=== PATIENT | female | born 1950 | race Caucasian/White ===

== ENCOUNTER 2020-01-20 04:51 | Observation (INO) | payer BC, SELFPAY ==
[2020-01-20] VITALS (10 sets, daily range): BP systolic 108–135; BP diastolic 45–77; PULSE 66–80; RESP 14–19; TEMP 36.4–37.2; O2SAT 97–100; BMI 22.0
--- NOTE | ~2020-01-20 | XR_ITS ---
EXAMINATION: XR abdomen obstructive series DATE: 01/21/2020 08:12 INDICATION: Small bowel obstruction TECHNIQUE: Upright and supine views of the abdomen were obtained. COMPARISON: CT from yesterday and abdominal radiograph dated 09/02/2016 FINDINGS: The dilated small bowel loop from yesterday's CT examination is not definitely identified a lthough the left mid abdomen is relatively gasless. There is no free intraperitoneal gas. The lung ba ses are clear. IMPRESSION: 1. No definitely dilated small bowel. However, the left mid abdomen is relatively gasless which could reflect fluid filling of the affected segment of small bowel. Reviewed, dictated and finalized at location A. IMPRESSION: 1. No definitely dilated small bowel. However, the left mid abdomen is relative ly gasless which could reflect fluid filling of the affected segment of small b mak.
--- NOTE | ~2020-01-20 | CT_ITS ---
EXAMINATION: CT abdomen pelvis w con DATE: 01/20/2020 05:36 INDICATION: Lower abdominal pain TECHNIQUE: Computed tomography (CT) of the abdomen and pelvis was performed . with 100 mL Omnipaque-3 50 intravenous contrast. Automated exposure control and iterative reconstruction technique were emplo yed. The dose-length product was 334.37 mGy-cm. COMPARISON: 09/02/2016 FINDINGS: Minimal atelectasis at the medial left lung base. Visualized portion of the inferior heart is normal. No pericardial or pleural effusion. Liver, gallbladder, spleen and bilateral adrenal glands are norm al. Again seen is moderate fatty atrophy of the pancreas. Again seen are small regions of cortical sc arring at both kidneys. Unchanged parapelvic cysts at the left kidney. Dilated loops of small bowel i n the pelvis measuring up to 3.7 cm with residual feces sign at the transition point in the anterior left pelvis where there is focal mild bowel wall thickening. The colon is largely decompressed. Small amount of ascites in the pelvis. No pneumatosis, free intraperitoneal gas or abscess. Bladder, uteru s and bilateral adnexa are unremarkable. No pathologically enlarged abdominal or pelvic lymphadenopat hy. Moderate thoracolumbar spondylosis. IMPRESSION: 1. Early/partial small bowel obstruction with transition point in the left lower quadrant. Reviewed, dictated and finalized at location A. IMPRESSION: 1. Early/partial small bowel obstruction with transition point in the left lowe r quadrant.
--- NOTE | 2020-01-20 05:02 | ED.ABDPAIN ---
HPI - Abdominal Pain General Chief Complaint: Abdominal Pain <Oziel Cohn MD - Last Filed: 01/25/20 19:58> Stated Complaint: lower abd pain <Oziel Cohn MD - Last Filed: 01/25/20 19:58> Time Seen by Provider: 01/20/20 04:56 <Oziel Cohn MD - Last Filed: 01/25/20 19:58> History of Present Illness HPI narrative: 69 yo female w/ h/o SBO presents c/o abdominal pain. She has had lower abdominal pain for the past few hours. Associated with nausea and vomiting. SHe had similar symptoms with previous bowel obstruction. She did have a bowel movment yesterday. No fever, chills. <Oziel Cohn MD - Last Filed: 01/25/20 19:58> Related Data Home Medications: Home Medications Medication Instructions Recorded Confirmed pravastatin 20 mg PO HS 01/20/20 01/20/20 <Oziel Cohn MD - Last Filed: 01/25/20 19:58> Allergies/Adverse Reactions: Allergies Allergy/AdvReac Type Severity Reaction Status Date / Time No Known Allergies Allergy Unknown Verified 07/11/19 13:25 <Oziel Cohn MD - Last Filed: 01/25/20 19:58> Review of Systems Review of Systems: All systems reviewed & are unremarkable except as noted in HPI and below <Oziel Cohn MD - Last Filed: 01/25/20 19:58> Constitutional: Constitutional: Denies fever(s) <Oziel Cohn MD - Last Filed: 01/25/20 19:58> Cardiovascular: Cardiovascular: Denies chest pain <Oziel Cohn MD - Last Filed: 01/25/20 19:58> Respiratory: Respiratory: Denies dyspnea <Oziel Cohn MD - Last Filed: 01/25/20 19:58> Gastrointestinal: Gastrointestinal: Reports constipation, Denies diarrhea, Reports nausea and Reports vomiting <Oziel Cohn MD - Last Filed: 01/25/20 19:58> Genitourinary: Genitourinary: Denies hematuria and Denies dysuria <Oziel Cohn MD - Last Filed: 01/25/20 19:58> Musculoskeletal: Musculoskeletal: Denies back pain <Oziel Cohn MD - Last Filed: 01/25/20 19:58> Neurologic: Denies dizziness and Denies weakness <Oziel Cohn MD - Last Filed: 01/25/20 19:58> PMFSH Past Medical History Medical History: Medical History (Updated 01/22/20 @ 08:45 by Jayda Moore PA-C) Encounter for other screening for malignant neoplasm of breast Hyperlipidemia Hypertension Postmenopausal Prediabetes <Oziel Cohn MD - Last Filed: 01/25/20 19:58> Surgical History Surgical History: Surgical History H/O section 1983 and 1988 History of ovarian cystectomy Hx of appendectomy During one of the sections. <Oziel Cohn MD - Last Filed: 01/25/20 19:58> Family History Family History: Family History Mother Family history of malignant neoplasm of breast in first degree relative <Oziel Cohn MD - Last Filed: 01/25/20 19:58> Social History Social History: Social History Social History: The patient reports that she lives in [place] with her Rodolfo. She wishes to be a full code. She has designated her Rodolfo as her POA. She is a retired childcare provider. Smoking status: Never smoker Second hand tobacco smoke exposure: No Alcohol intake: never Substance use: never Gender identity (if verbalized by the patient): Female Spiritual care concerns: No Agree to blood products: Yes <Oziel Cohn MD - Last Filed: 01/25/20 19:58> Exam Const: General: alert <Oziel Cohn MD - Last Filed: 01/25/20 19:58> Nutritional Appearance: well nourished <Oziel Cohn MD - Last Filed: 01/25/20 19:58> Orientation/consciousness: patient oriented x3 <Oziel Cohn MD - Last Filed: 01/25/20 19:58> Other: mild distressed <Oziel Cohn MD - Last Filed: 01/25/20 19:58> NOAHMT: Padmini
[2020-01-20] MEDS: ONDANSETRON INJ 4 MG/2 ML VIAL IV PUSH (05:14)
[2020-01-20] MEDS: MORPHINE SULFATE 4 MG/ML INJ IV PUSH (05:14)
[2020-01-20 05:17] LABS: Basophils Percent Auto 0.1 % (0.2-1.2); Hematocrit 38.8 % (37.0-47.0); Hemoglobin 12.6 g/dL (12.0-15.0); Immature Granulocyte Absolute 0.06 K/mm3 (0.00-0.031); Immature Granulocyte Percent A 0.5 % (0-0.5); Lymphocytes Absolute Auto 0.59 K/mm3 (0.9-3.2); Lymphocytes Percent Auto 5.2 % (18.3-44.2); Mean Corpuscular HGB Conc 32.5 g/dl (32-36); Mean Corpuscular Hemoglobin 30.8 pg (26-34); Mean Corpuscular Volume 94.9 fl (80-100); Mean Platelet Volume 12.7 fl (7.4-10.4); Monocytes Absolute Auto 0.3 K/mm3 (0.1-0.6); Monocytes Percent Auto 2.5 % (2.6-8.5); Neutrophils Absolute Auto 10.5 K/mm3 (1.3-6.7); Neutrophils Percent Auto 91.7 % (45.5-73.1); Platelet Count Result 253 k/mm3 (150-375); Red Blood Count 4.09 M/mm3 (4.2-5.4); White Blood Count 11.4 K/mm3 (4.5-10.0)
[2020-01-20 05:26] LABS: Alanine Aminotransferase 20 U/L (4-35); Albumin Level 4.3 g/dL (3.5-5.1); Alkaline Phosphatase 96 U/L (38-126); Aspartate Amino Transferase 29 U/L (14-36); Bilirubin,Total 0.6 mg/dL (0.2-1.3); Blood Urea Nitrogen 17 mg/dL (7-17); Calcium 9.5 mg/dL (8.4-10.2); Carbon Dioxide 26 mmol/L (22-30); Chloride 99 mmol/L (98-107); Estimated CRCL calculation 56 ml/min; Estimated Glomerular Filt Rate > 60; Glucose 191 mg/dL (65-105); Lipase 25 U/L (23-300); Potassium 3.4 mmol/L (3.4-5.0); Sodium 133 mmol/L (137-145)
[2020-01-20 05:27] LABS: INR 0.9; Partial Thromboplastin Time 20.7 SECONDS (22.3-36.8); Prothrombin Time 11.6 Seconds (11.1-14.7)
[2020-01-20 05:28] LABS: Estimated CRCL calculation 56 ml/min; Estimated Glomerular Filt Rate > 60
[2020-01-20 05:32] LABS: Add Urine Microscopic? YES; Appearance Urine Clear (Clear); Bacteria Urine Trace /hpf; Bilirubin Urine Negative (Negative); Blood Urine Negative (Negative); Color Urine Yellow (Yellow); Glucose Urine UA 1+ mg/dL (Negative); Ketones Urine 1+ mg/dL (Negative); Leukocyte Esterase Ur Negative LEU/UL (Negative); Mucus Urine Rare /lpf; Nitrate Urine Negative (Negative); Protein Urine Negative (Negative); Specific Grav Ur 1.015 (1.001-1.035); Squamous Epithelial Cell Urine Rare /hpf (Few); Urobilinogen Urine Negative mg/dL (<2.0); WBC Urine 0-3 /hpf
--- NOTE | 2020-01-20 07:44 | ADMGEN ---
This patient, Ritu Gomez, was admitted to Medical Room 348-01. Patient/family oriented to hospital policies and general routines including ID bracelet, bed and alarms, visiting hours, pain management, procedures, bathroom and other care routines, personal items, smoking policy, room service/diet, and visiting hours. Valuables list has been completed. Information on how to activate the Rapid Response Team has been discussed. Patient/Family are encouraged to report perceived risks to care and to ask questions if they do not understand what they are told or what they should do.
[2020-01-20] MEDS: SODIUM CHLORIDE 0.9% IV 1,000 ML 125 ML IV CONT ×2 (08:08→16:32)
[2020-01-20] MEDS: LEVOTHYROXINE SODIUM INJ 100 MCG/5 ML VIAL 25 MCG IV PUSH (09:35)
--- NOTE | 2020-01-20 10:38 | PM.IMHP ---
H&P: HPI History of Present Illness Chief complaint: SBO Narrative: Ritu Gomez is a 69 year old female with PMH significant for recurrent small bowel obstructions with three hospitalizations in 2015 and 2016 managed conservatively, hypothyroidism, hypertension, hyperlipidemia, and impaired glucose tolerance, diet controlled, with last A1C 6.3 01/04/19 who presented to the ED with c/o lower abdominal and periumbilical pain since Thursday. She rates the pain at 5/10 and describes it as constant and sharp. She reports 2-3 episodes of associated vomiting as well as nausea. She states that her sx persisted so she decided to proceed to the ED. She denies melena, hematemesis, and hematochezia. She adheres to a low fiber diet at home. She denies fever and chills. She reports that her stools are generally soft. She reports that she had a BM yesterday and this AM which were soft. She denies diarrhea and constipation. She underwent colonoscopy by Dr. Abel 07/14/19 which revealed internal hemorrhoids and was otherwise unremarkable. Initial workup in the ED revealed WBC 11,400 with mostly neutrophils, Hb 12.6, and Hct 38.8. Her metabolic panel revealed sodium 133 and glucose 191 and was otherwise unremarkable. CT abd/pelvis revealed dilated loops of small bowel in the pelvis measuring up to 3.7 cm with residual feces at the transition point in the anterior left pelvis with focal mild bowel wall thickening and decompressed colon. She was given IV fluids, placed on bowel rest, and given IV antiemetics and analgesics PRN. She refused NG tube in the ED. General surgery was consulted and she was admitted to the hospitalist service for further evaluation and treatment. She reports that her pain has resolved significantly today. Review of Systems Review of Systems: Narrative: Constitutional: Denies fever, chills, fatigue, malaise, and appetite change. Denies recent weight loss. Eyes: Denies vision change. No additional eye complaints. ENT: Denies change in hearing, nasal congestion, dysphagia, and sore throat. Reports mild sinus congestion. Cardiovascular: Denies palpitations and chest pain. Denies PND and orthopnea. Denies dyspnea on exertion. Respiratory: Denies cough and shortness of breath. Gastrointestinal: As above. Genitourinary: Denies dysuria, frequency, urgency, hematuria, and hesitancy. Musculoskeletal: Denies joint pain and swelling. Denies muscle cramps and weakness. Skin: Denies rash, lesions, or wounds. Neurologic: Denies focal weakness, paresthesias, confusion, and speech change. Psychiatric: Denies anxiety and depression. Hematologic: Denies easy bruising and bleeding. All systems reviewed & are unremarkable except as noted in HPI and below PMFSH Past Medical History Medical History Encounter for other screening for malignant neoplasm of breast Hyperlipidemia Hypertension Postmenopausal Prediabetes Surgical History Surgical History H/O section 1983 and 1988 History of ovarian cystectomy Hx of appendectomy During one of the sections. Family History Family History Mother Family history of malignant neoplasm of breast in first degree relative Social History Social History Social History: The patient reports that she lives in [place] with her Rodolfo. She wishes to be a full code. She has designated her Rodolfo as her POA. She is a retired childcare provider. Smoking status: Never smoker Second hand tobacco smoke exposure: No Alcohol intake: never Substance use: never Living arrangements: with family Occupation/Education: retired Gender identity (if verbalized by the patient): Female Spiritual care concerns: No Agree to blood products: Yes Meds Home Med
[2020-01-20] MEDS: ENOXAPARIN 40 MG/0.4 ML SYRINGE SUB-Q (10:54)
[2020-01-20] MEDS: PANTOPRAZOLE SODIUM IV 40 MG VIAL IV PUSH (10:54)
[2020-01-20 12:14] LABS: Glucose Point of Care 85 (65-105)
[2020-01-20 13:56] LABS: Hemoglobin A1C 6.5 % (<5.7)
[2020-01-20] MEDS: METOPROLOL SUCCINATE EXT REL 25 MG TABCR PO (14:04)
--- NOTE | 2020-01-20 14:32 | PM.CNGS ---
Assessment and Plan Assessment and plan (1) Small bowel obstruction: Code(s): K56.609 - Unspecified intestinal obstruction, unspecified as to partial versus complete obstruction Status: Acute Assessment and Plan: CT scan reviewed and discussed with the patient in detail. There is evidence of an early or partial small bowel obstruction. She does have a history of multiple abdominal surgeries, therefore adhesions could be the cause for this. She has had multiple partial small bowel obstructions in the past that resolved with conservative management, but has not had any issues since 2016. She reports to me that she had a bowel movement this morning. Her abdominal exam is benign and she has seemed to already clinically improve. We will defer an NG tube at this time and allow the patient to try some clear liquids and ice chips. Will order abdominal films for tomorrow morning and continue to monitor the patient with serial abdominal exams and imaging. I discussed with the patient that if her symptoms return or she is unable to tolerate a diet, then we may need to consider NG tube placement. I discussed the plan of care with the patient and answered all her questions. Thank you for allowing me to see the patient in consultation and we will continue to follow along with you. (2) Hypertension: Qualifiers: Hypertension type: essential hypertension Qualified Code(s): I10 - Essential (primary) hypertension Code(s): I10 - Essential (primary) hypertension Status: Chronic (3) Hyperlipidemia: Qualifiers: Hyperlipidemia type: unspecified Qualified Code(s): E78.5 - Hyperlipidemia, unspecified Code(s): E78.5 - Hyperlipidemia, unspecified Status: Chronic (4) Hypothyroidism: Qualifiers: Hypothyroidism type: acquired Qualified Code(s): E03.9 - Hypothyroidism, unspecified Code(s): E03.9 - Hypothyroidism, unspecified Status: Chronic Additional Plan I discussed the patient's case and formulated the plan of care with Dr. Tafoya today. History of Present Illness Consult details Consult date: 01/20/20 Reason for consult: other (Partial small bowel obstruction) Requesting physician: Iglesia Montemayor MD Narrative: This is a 69-year-old female who presented to the emergency department early this morning with complaints of abdominal pain. She has a history of hypertension, hyperlipidemia, and hypothyroidism, along with a surgical history of two previous sections and ovarian cyst removal. The patient has a more remote history of previous partial small bowel obstructions. She initially had her first episode in August of 2015 and was evaluated by Dr. Mercedes. She was felt to have a partial small bowel obstruction versus ileus and improved with conservative management. She then had presented to the ER with similar symptoms in March of 2016, but symptoms resolved in the ER and she was discharged home. She was again seen in June and August of 2016 for a partial small bowel obstruction and improved with conservative management. During the Hospitalization in August of 2016, she was evaluated by Dr. Roberson and had recommendations of continuing with a low fiber diet and monitoring her bowel habits. It was not felt that she needed any surgical intervention in the past. The patient reportedly has not been hospitalized for this issue since and denies any issues at home until recently. She reports that about 2 days ago she developed a sudden onset of lower abdominal pain with associated nausea and one episode of vomiting. She states that her symptoms resolved spontaneously that evening. Yesterday, she reports eating and drinking normally without any complications. She the developed a sudden onset of the abdominal pain again overnight that was more severe and unrelenting. She then decided to present to the emergency department for further evaluation. CT scan of the abdomen and pelvis showed
[2020-01-20 16:45] LABS: Glucose Point of Care 94 (65-105)
[2020-01-20] MEDS: FLUTICASONE PROPIONATE 0.05% NA SPR 16 GM BTL (*BKC) 1 SPRAY NASAL (21:17)
[2020-01-20] MEDS: PRAVASTATIN SODIUM 20 MG TABLET PO (21:17)
[2020-01-21] MEDS: SODIUM CHLORIDE 0.9% IV 1,000 ML 125 ML IV CONT (00:12)
[2020-01-21 00:17] LABS: Glucose Point of Care 98 (65-105)
[2020-01-21 05:08] VITALS: BP 135/57; PULSE 75; RESP 16; TEMP 36.7; O2SAT 100
[2020-01-21 06:38] LABS: Basophils Percent Auto 0.1 % (0.2-1.2); Eosinophils Percent Auto 0.1 % (0-4.4); Hematocrit 34.8 % (37.0-47.0); Hemoglobin 11.4 g/dL (12.0-15.0); Immature Granulocyte Absolute 0.02 K/mm3 (0.00-0.031); Immature Granulocyte Percent A 0.3 % (0-0.5); Lymphocytes Absolute Auto 0.78 K/mm3 (0.9-3.2); Lymphocytes Percent Auto 10.9 % (18.3-44.2); Mean Corpuscular HGB Conc 32.8 g/dl (32-36); Mean Corpuscular Hemoglobin 31.1 pg (26-34); Mean Corpuscular Volume 95.1 fl (80-100); Mean Platelet Volume 12.5 fl (7.4-10.4); Monocytes Absolute Auto 0.7 K/mm3 (0.1-0.6); Monocytes Percent Auto 9.2 % (2.6-8.5); Neutrophils Absolute Auto 5.7 K/mm3 (1.3-6.7); Neutrophils Percent Auto 79.4 % (45.5-73.1); Platelet Count Result 215 k/mm3 (150-375); Red Blood Count 3.66 M/mm3 (4.2-5.4); Red Cell Distribution Width 14.3 % (11.5-14.5); White Blood Count 7.2 K/mm3 (4.5-10.0)
[2020-01-21] MEDS: LEVOTHYROXINE SODIUM 50 MCG TABLET PO (06:44)
[2020-01-21 06:50] LABS: Glucose Point of Care 87 (65-105)
[2020-01-21 06:55] LABS: Blood Urea Nitrogen 10 mg/dL (7-17); Calcium 8.3 mg/dL (8.4-10.2); Carbon Dioxide 27 mmol/L (22-30); Chloride 106 mmol/L (98-107); Estimated CRCL calculation 69 ml/min; Estimated Glomerular Filt Rate > 60; Glucose 112 mg/dL (65-105); Potassium 3.6 mmol/L (3.4-5.0); Sodium 137 mmol/L (137-145)
[2020-01-21] MEDS: FLUTICASONE PROPIONATE 0.05% NA SPR 16 GM BTL (*BKC) 1 SPRAY NASAL ×2 (08:02→21:22)
[2020-01-21] MEDS: ENOXAPARIN 40 MG/0.4 ML SYRINGE SUB-Q (08:02)
[2020-01-21] MEDS: PANTOPRAZOLE SODIUM IV 40 MG VIAL IV PUSH (08:02)
--- NOTE | 2020-01-21 08:51 | PM.IMPN ---
Progress Note: A&P Assessment and Plan (1) Small bowel obstruction: Code(s): K56.609 - Unspecified intestinal obstruction, unspecified as to partial versus complete obstruction Status: Acute Assessment and Plan: The pt has a hx of recurrent SBO in 2014 and 2015 which have been managed conservatively in the past. Adhesions are suspected as the cause as she has a hx of multiple abdominal surgeries. General surgery is on board. She is being managed conservatively with bowel rest. She reports that her abdominal pain has subsided and she is not experiencing nausea or vomiting. She is tolerating sips of clear liquids well. Abdominal xray revealed no definite dilation of the small bowel and relatively gasless mid abdomen suggesting that the bowel obstruction is resolving with conservative measures. Plan to advance diet per general surgery Will discontinue IV fluids as pt is tolerating PO intake Continue IV antiemetics and analgesics PRN (2) Hypothyroidism: Qualifiers: Hypothyroidism type: acquired Qualified Code(s): E03.9 - Hypothyroidism, unspecified Code(s): E03.9 - Hypothyroidism, unspecified Status: Chronic Assessment and Plan: TSH is 4.190 WNL and fT4 is pending. Continue levothyroxine (3) Hypertension: Qualifiers: Hypertension type: essential hypertension Qualified Code(s): I10 - Essential (primary) hypertension Code(s): I10 - Essential (primary) hypertension Status: Chronic Assessment and Plan: BP reviewed from 01/20 and stable. Continue metoprolol (4) Hyperlipidemia: Qualifiers: Hyperlipidemia type: unspecified Qualified Code(s): E78.5 - Hyperlipidemia, unspecified Code(s): E78.5 - Hyperlipidemia, unspecified Status: Chronic Assessment and Plan: LFTs reviewed and WNL. Continue pravastatin (5) Diabetes mellitus: Qualifiers: Diabetes mellitus complication status: without complication Diabetes mellitus [facility] insulin use: without napper runner use Diabetes mellitus type: type 2 Qualified Code(s): E11.9 - Type 2 diabetes mellitus without complications Code(s): E11.9 - Type 2 diabetes mellitus without complications Status: Acute Assessment and Plan: HbA1C was repeated and is 6.5 which is consistent with diabetes. FBS today was 112 today. Additional blood sugars fasting have been <100. She denies sx of hyperglycemia. She denies unintentional weight loss. ACHS once no longer NPO, Q6 glucose monitoring until then Low dose SSI Hypoglycemic protocol Will encourage continued lifestyle modification with diet and exercise and PCP follow-up to determine whether or not to begin antihyperglycemics. The pt has declined to meet with the health educator at this time. Follow-up with PCP in 1 week (6) DVT prophylaxis: Code(s): Z29.9 - Encounter for prophylactic measures, unspecified Status: Acute Assessment and Plan: Continue lovenox SQ (7) Petechiae: Code(s): R23.3 - Spontaneous ecchymoses Status: Acute Assessment and Plan: The pt has localized petechiae on the left forearm distal to the coban wrap around her IV. I suspect this is traumatic as she has no other petechiae anywhere else on her body. Platelet count is normal. Continue to monitor, I removed coban wrap Subjective Date/time seen: 01/21/20 08:51 Interval history: Mrs. Gomez is seen and examined at bedside in follow-up for early or partial SBO. She reports that her abdominal pain has subsided. She denies nausea and vomiting and is tolerating sips of clear liquid well. She slept well. She denies chest pain, SOB, and cough. She denies dizziness and lightheadedness. She reports that her last BM was yesterday AM. She is passing flatus. She has no other concerns. Review of Systems Review of Systems: All systems reviewed & are unremarkab
[2020-01-21 09:31] LABS: Free T4 Free Thyroxine Reflex 1.04 ng/dL (0.78-2.19)
[2020-01-21] MEDS: SODIUM CHLORIDE 0.9% IV 1,000 ML 75 ML IV CONT (10:29)
[2020-01-21 10:51] LABS: Total Triiodothyronine (T3) 0.84 NG/ML (0.97-1.69)
[2020-01-21 12:06] LABS: Glucose Point of Care 90 (65-105)
--- NOTE | 2020-01-21 12:28 | PM.PNGS ---
Progress Note: A&P Assessment and Plan (1) Small bowel obstruction: Code(s): K56.609 - Unspecified intestinal obstruction, unspecified as to partial versus complete obstruction Status: Acute Assessment and Plan: Bowel obstruction appears to be resolving. Will give Mag citrate today to stimulate bowels, and start advancing diet. Could possibly discharge this evening if no recurrent symptoms. Subjective Subjective Date/Time Seen: 01/21/20 12:28 Passing flatus but no BM yet. No abdominal pain or bloating. No nausea. Appetite has returned. Exam GI: Inspection: normal to inspection and non-distended GI Palp: Yes Soft to palpation, No Tenderness to palpation present (GI), No Guarding due to palpation present (GI) and No Rebound tenderness present Percussion: Yes normal to percussion Auscultation: normal bowel sounds Objective Data Vital Signs Vital Signs: Vital Signs - 24 hr 01/20/20 14:04 01/20/20 14:20 01/20/20 17:48 Temperature 36.4 C L 36.9 C Pulse Rate 76 66 68 Respiratory Rate 16 16 Blood Pressure 132/64 128/62 Pulse Oximetry 100 100 01/20/20 22:00 01/21/20 05:08 Temperature 36.8 C 36.7 C Pulse Rate 68 75 Respiratory Rate 14 16 Blood Pressure 135/57 L 135/57 L Pulse Oximetry 100 100 Intake/Output Intake/Output: Intake & Output 01/18/20 01/19/20 01/20/20 01/21/20 23:59 23:59 23:59 23:59 Intake Total 1000 2050 Output Total 600 450 Balance 400 1600 Meds/Results Medications: Active Medications Generic Name Dose Route Start Last Admin Trade Name Freq PRN Reason Stop Dose Admin Dextrose 12.5 gm 01/21/20 08:04 Dextrose 50% Syringe IV PUSH PRN PRN Hypoglycemia Protocol Enoxaparin Sodium 40 mg 01/20/20 09:00 01/21/20 08:02 Lovenox SUB-Q 40 mg DAILY ASHLEY Administration Fluticasone Propionate 1 spray 01/20/20 21:00 01/21/20 08:02 Flonase 0.05% Nasal [place] NASAL 1 spray Q12HR ASHLEY Administration Glucagon 1 mg 01/21/20 08:04 Glucagon For Inj IM PRN PRN Hypoglycemia Protocol Glucose 15 gm 01/20/20 06:35 Glutose 15 PO PRN PRN Hypoglycemia Protocol Glucose 15 gm 01/21/20 08:04 Glutose 15 PO PRN PRN Hypoglycemia Protocol Sodium Chloride 1,000 mls @ 75 mls/hr 01/20/20 06:35 01/21/20 10:29 Normal Saline Iv IV CONT 75 mls/hr .[id number] ASHLEY Administration Dextrose 1,000 mls @ 100 mls/hr 01/21/20 08:04 Dextrose 5% 1,000 Ml IVPB PRN PRN Hypoglycemia Protocol Insulin Aspart 2 - 5 units 01/21/20 12:00 01/21/20 12:16 Novolog SUB-Q Not Given TIDWM ASHLEY Protocol Levothyroxine Sodium 50 mcg 01/21/20 06:30 01/21/20 06:44 Synthroid PO 50 mcg DAILY@0630 ASHLEY Administration Magnesium Citrate 150 ml 01/21/20 12:26 Citrate Of Magnesia PO 01/21/20 12:27 ONCE ONE Metoprolol Succinate 25 mg 01/20/20 14:00 01/20/20 14:04 Toprol Xl PO 25 mg 1400 ASHLEY Administration Morphine Sulfate 4 mg 01/20/20 06:35 Morphine Sulfate Inj IV PUSH Q2H PRN Pain Rated 7-10 Ondansetron HCl 4 mg 01/20/20 06:35 Zofran Inj IV PUSH Q4H PRN Nausea Pantoprazole Sodium 40 mg 01/20/20 09:15 01/21/20 08:02 Protonix Iv IV PUSH 40 mg QAM ASHLEY Administration Pravastatin Sodium 20 mg 01/20/20 21:00 01/20/20 21:17 Pravastatin Sodium PO 20 mg HS ASHLEY Administration Radiology Results: ITS Impressions Abdomen/Pelvis CT 01/20/20 07:40 IMPRESSION: 1. Early/partial small bowel obstruction with transition point in the left lower quadrant. Abdomen X-Ray 01/21/20 08:36 IMPRESSION: 1. No definitely dilated small bowel. However, the left mid abdomen is relatively gasless which could reflect fluid filling of the affected segment of small bowel. Labs Labs: Laboratory Results - last 24 hr 01/20/20 01/20/20 01/21/20 05:07 16:34 00:13 WBC RBC Hgb
[2020-01-21] MEDS: MAGNESIUM CITRATE 300 ML BTL 150 ML PO (12:35)
[2020-01-21 14:10] VITALS: PULSE 82
[2020-01-21] MEDS: METOPROLOL SUCCINATE EXT REL 25 MG TABCR PO (14:10)
[2020-01-21 14:12] VITALS: BP 134/65; PULSE 66; RESP 18; TEMP 36.4; O2SAT 100
--- NOTE | 2020-01-21 17:44 | PC.NURSE ---
Per Dr. Roberson, OK for patient to discharge when OK with hospitalist. Follow up as needed. Dr. Coombs notified of surgery being OK with discharge. He says the patient can be discharged tomorrow morning.
[2020-01-21 18:20] LABS: Glucose Point of Care 106 (65-105)
[2020-01-21] MEDS: PHARMACIST COMMUNICATION ORDER 1 EACH XX (18:36)
[2020-01-21] MEDS: PRAVASTATIN SODIUM 20 MG TABLET PO (18:36)
[2020-01-21 21:25] VITALS: PULSE 70; RESP 14; O2SAT 100
[2020-01-21 21:31] LABS: Glucose Point of Care 109 (65-105)
[2020-01-21 22:00] VITALS: BP 112/66; PULSE 70; RESP 14; TEMP 36.5; O2SAT 100
[2020-01-22 05:42] VITALS: BP 128/65; PULSE 67; RESP 16; TEMP 36.5; O2SAT 100
[2020-01-22] MEDS: LEVOTHYROXINE SODIUM 50 MCG TABLET PO (05:42)
[2020-01-22 08:06] LABS: Glucose Point of Care 117 (65-105)
--- NOTE | 2020-01-22 08:43 | PM.DS ---
DS: Diagnosis Admitting Diagnosis Admitting Diagnosis: Unspecified intestinal obstruction, unspecified as to partial versus complete obstruction Discharge Diagnosis (1) Small bowel obstruction: Code(s): K56.609 - Unspecified intestinal obstruction, unspecified as to partial versus complete obstruction Status: Resolved (2) Hypothyroidism: Qualifiers: Hypothyroidism type: acquired Qualified Code(s): E03.9 - Hypothyroidism, unspecified Code(s): E03.9 - Hypothyroidism, unspecified Status: Chronic (3) Hypertension: Qualifiers: Hypertension type: essential hypertension Qualified Code(s): I10 - Essential (primary) hypertension Code(s): I10 - Essential (primary) hypertension Status: Chronic (4) Hyperlipidemia: Qualifiers: Hyperlipidemia type: unspecified Qualified Code(s): E78.5 - Hyperlipidemia, unspecified Code(s): E78.5 - Hyperlipidemia, unspecified Status: Chronic (5) Diabetes mellitus: Qualifiers: Diabetes mellitus complication status: without complication Diabetes mellitus penitentiary insulin use: without penitentiary use Diabetes mellitus type: type 2 Qualified Code(s): E11.9 - Type 2 diabetes mellitus without complications Code(s): E11.9 - Type 2 diabetes mellitus without complications Status: Acute (6) DVT prophylaxis: Code(s): Z29.9 - Encounter for prophylactic measures, unspecified Status: Acute (7) Petechiae: Code(s): R23.3 - Spontaneous ecchymoses Status: Acute Assessment and Plan: DS: Summary Hospital Course Reason for hospitalization: Small Bowel Obstruction Hospital Course: Ritu Gomez is a 69 year old female with PMH significant for recurrent small bowel obstructions with three hospitalizations in 2014 and 2016 managed conservatively, hypothyroidism, hypertension, hyperlipidemia, and impaired glucose tolerance, diet controlled, with last A1C 6.3 01/04/19 who presented to the ED with c/o lower abdominal and periumbilical pain with associated vomiting and nausea. Initial workup in the ED revealed WBC 11,400 with mostly neutrophils, Hb 12.6, and Hct 38.8. Her metabolic panel revealed sodium 133 and glucose 191. The rest of the metabolic panel was otherwise unremarkable. CT abd/pelvis revealed dilated loops of small bowel in the pelvis measuring up to 3.7 cm with residual feces at the transition point in the anterior left pelvis with focal mild bowel wall thickening and decompressed colon. She was given IV fluids, placed on bowel rest, and given IV antiemetics and analgesics PRN. She refused NG tube in the ED. General surgery was consulted and she was admitted to the hospitalist service for further evaluation and treatment. She was treated with conservative measures and tolerated sips of clear liquid well. Her diet was advanced per general surgery and she tolerated this well. Her pain, nausea, and vomiting resolved. Abdominal xray was repeated and revealed no definite dilation of the small bowel and relatively gasless mid abdomen suggesting that the bowel obstruction was resolving with conservative measures. She was given mag citrate to stimulate her bowels and had a regular bowel movement. A1C was ordered and found to be 6.5%. She is very cognizant of her diet and had no sx of hyperglycemia. She will try to continue low carb diet and exercise and follow-up with her PCP outpatient to discuss whether or not to start PO antihyperglycemics. She declined to meet with the family life educator. She did have a small localized area of petechiae at the site distal to coban wrap around her IV consistent with trauma. I advised her to monitor this closely. All additional instructions are listed below. She was discharged in stable condition. Status at Discharge Functional status at discharge: independent ambulation Overall status at discharge: patient is back to baseline Time Spent with Patient Time norris
== END 2020-01-22 10:00 | disposition home or self-care (01) ==
LOC: ANHED 06:33 → ANH3MED 06:54
PROVIDERS: Emergency Medicine; Admitting Provider Family Medicine; Emergency Provider Family Medicine; PCP Family Medicine; Visit Provider Physician Assistant
DX: K56.609 Unspecified intestinal obstruction, unspecified as to partial versus complete obstruction (principal); E03.9 Hypothyroidism, unspecified; I10 Essential (primary) hypertension; E78.5 Hyperlipidemia, unspecified; E11.9 Type 2 diabetes mellitus without complications; R23.3 Spontaneous ecchymoses; Z87.891 Personal history of nicotine dependence
CPT/HCPCS: 36415; 74019; 74177; 80048; 80053; 81001; 83036; 83690; 84439; 84443; 84480; 85025; 85610; 85730; 96361; 96372; 96374; 96375; 96376; 99285; A9270; C9113; G0378; J1650; J2270; J2405; J7030; Q9967

== ENCOUNTER → 2020-09-05 11:02 | Outpatient (CLI) | payer BC, SELFPAY ==
--- NOTE | ~2020-09-05 | DEXA_ITS ---
Bone Density Report Name: Ritu Gomez Age: 70 Sex: Female Ethnicity: White Date of : 1950 Indication: postmenopausal; screening for osteoporosis; height loss; hysterectomy; Referring Provider: Jack, uSssy Root Study: Bone densitometry was performed. Exam Date: September 05, 2020 Accession number: [id number] Bone Density: Region BMD T-score Z-score Classification AP Spine (L1-L4) 0.891 -1.4 0.6 Osteopenia Femoral Neck (Left) 0.619 -2.1 -0.4 Osteopenia Total Hip (Left) 0.812 -1.1 0.4 Osteopenia Femoral Neck (Right) 0.645 -1.8 -0.1 Osteopenia Total Hip (Right) 0.811 -1.1 0.3 Osteopenia Total Hip Mean 0.812 -1.1 0.4 Osteopenia World Health Organization criteria for BMD impression classify patients as: Normal (T-score at or above -1.0), Osteopenia (T-score between -1.0 and -2.5), or Osteoporosis (T-score at or below -2.5). 10-year Fracture Risk(1): Major Osteoporotic Fracture 11% Hip Fracture 2.1% Reported Risk Factors: [place] (), Neck BMD=0.619, BMI=22.9 (1) FRAX(R) Version 3.08. Fracture probability calculated for an untreated patient. Fracture probability may be lower if the patient has received treatment. Previous Exams: Region Exam Age BMD T-score BMD Change BMD Change Date g/cm2 vs Baseline vs Previous AP Spine(L1-L4) 09/05/2020 70 0.891 -1.4 -0.140* -0.130* 11/21/2009 59 1.021 -0.2 -0.009 -0.026* 10/27/2007 57 1.047 0.0 0.017 0.017 09/05/2005 55 1.030 -0.2 Total Hip(Left) 09/05/2020 70 0.812 -1.1 -0.147* -0.134* 11/21/2009 59 0.947 0.0 -0.013 -0.018 10/27/2007 57 0.965 0.2 0.006 0.006 09/05/2005 55 0.959 0.1 Total Hip(Right) 09/05/2020 70 0.811 -1.1 -0.188* -0.131* 11/21/2009 59 0.941 0.0 -0.057* -0.010 10/27/2007 57 0.952 0.1 -0.046* -0.046* 09/05/2005 55 0.998 0.5 *Denotes significance at 95% confidence level, LSC for AP Spine = 0.022 g/cm2, LSC for Total Hip = 0.027 g/cm2 Clinical Information Provided by Patient: Has used the following medications: Vitamin D Has the following medical conditions: Hysterectomy Patient maximum height was 66 Menopause Age: 51 Does not regularly consume dairy products Drinks caffeinated beverages Number of children 2 Impression: The patient has
--- NOTE | ~2020-09-05 | MM_ITS ---
EXAMINATION: MM screening reuben BI w radha HISTORY: Screening TECHNIQUE: Craniocaudal and mediolateral oblique 3-D tomosynthesis images were obtained and synthetic 2-D images were generated. CAD analysis was submitted and interpreted. COMPARISON: 10/25/2013 BREAST PARENCHYMAL COMPOSITION: There are scattered areas of fibroglandular density. FINDINGS: There is no evidence of suspicious mass, calcification, or architectural distortion to sugg est malignancy in either breast. There has been no suspicious interval change. IMPRESSION: 1. No mammographic evidence of malignancy. 2. Recommend routine screening mammography in one year. BI-RADS Category 1: Negative Reviewed, dictated and finalized at location A. DRIVER
== END ==
PROVIDERS: PCP Nurse Practitioner Family; Visit Provider Nurse Practitioner Obstetrics & Gynecology
DX: Z12.31 Encounter for screening mammogram for malignant neoplasm of breast (principal); Z78.0 Asymptomatic menopausal state; M85.88 Other specified disorders of bone density and structure, other site; M85.852 Other specified disorders of bone density and structure, left thigh; M85.851 Other specified disorders of bone density and structure, right thigh
CPT/HCPCS: 77063; 77067; 77080

== ENCOUNTER 2021-07-05 08:55 | Outpatient (CLI) | payer MEDICARE, SELFPAY ==
--- NOTE | 2021-07-05 09:01 | ECHO_ITS ---
Patient Info Name: Ritu Gomez Age: 71 years : 1950 Gender: Female Ht: 65 in Wt: 145 lbs BSA: 1.75 m2 HR: 65 bpm BP: 118 / 70 mmHg Technical Quality: Good Exam Date: 07/05/2021 9:07 AM Exam Location: [facility] Patient Status: Outpatient Admit Date: 07/05/2021 Staff Ordering Physician: Marco A Dodd DO Director Of Compliance: Belkis Green RDCS Attending Provider: Marco A Dodd DO Referring Physician: Yousif WILKERSON; Exam Type: CA echo doppler color flow Study Info Indications I48.91 - UNSPECIFIED ATRIAL FIBRILLATION Complete two-dimensional, color flow and Doppler transthoracic echocardiogram is performed. Summary 1. Complete two-dimensional, color flow and Doppler transthoracic echocardiogram is performed. 2. Left ventricular chamber dimension is normal. 3. Left ventricular systolic function is normal, estimated at 65-70%. 4. The left ventricular diastolic function is abnormal. 5. E/e' 10 is mildly elevated. 6. There is mild aortic valve regurgitation. 7. There is mild tricuspid valve regurgitation. 8. No pulmonary hypertension, estimated pulmonary arterial systolic pressure is 28 mmHg. Left Ventricle E/e' 10 is mildly elevated. Left ventricular chamber dimension is normal. Left ventricular systolic function is normal, estimated at 65-70%. The left ventricular diastolic function is abnormal. Right Ventricle Right ventricular chamber dimension is normal. Right ventricular systolic function is normal. Left Atria Left atrial chamber dimension is normal. Right Atria Right atrial chamber dimension is normal. Aortic Valve The aortic valve is trileaflet. There is no aortic valve stenosis. There is mild aortic valve regurgitation. Pulmonic Valve There is no pulmonic regurgitation. Mitral Valve There is no mitral valve stenosis. There is no mitral valve regurgitation. Tricuspid Valve There is mild tricuspid valve regurgitation. No pulmonary hypertension, estimated pulmonary arterial systolic pressure is 28 mmHg. Pericardium/Pleural There is no pericardial effusion. Inferior Vena Cava Normal inferior vena cava with >50% collapse upon inspiration consistent with normal right atrial pressure, 5 mmHg. Aorta The aortic root size at the sinus of Valsalva is normal. Left Ventricular Outflow Tract Name Value Normal LVOT 2D LVOT Diameter 2.0 cm LVOT Doppler LVOT Peak Gradient 9 mmHg LVOT Mean Gradient 4 mmHg LVOT VTI 33 cm LVOT VTI/AV VTI Ratio 0.9 LVOT Stroke Volume 101 ml LVOT CO 5.6 l/min LVOT CI 3.2 l/min/m2 Pulmonic Valve Name Value Normal RVOT Doppler RVOT Peak Gradient 2 mmHg
== END 2021-07-05 08:56 | disposition home or self-care (01) ==
PROVIDERS: PCP Family Medicine; Visit Provider Internal Medicine Cardiovascular Disease
DX: I48.91 Unspecified atrial fibrillation (principal); R93.1 Abnormal findings on diagnostic imaging of heart and coronary circulation
CPT/HCPCS: 93306

== ENCOUNTER 2021-12-28 02:35 | Inpatient (IN) | payer MEDICARE, SELFPAY ==
[2021-12-28] VITALS (24 sets, daily range): BP systolic 110–154; BP diastolic 45–63; PULSE 63–77; RESP 12–22; TEMP 36.4–37; O2SAT 99–100; BMI 19.4
--- NOTE | ~2021-12-28 | XR_ITS ---
EXAMINATION: XR abdomen NG/feed tube insert INDICATION: Nasogastric tube placement TECHNIQUE: Portable AP KUB-[id number] at 0638 hours COMPARISON: 01/21/2020 FINDINGS: The nasogastric tube is in the stomach. There are multiple dilated small bowel loops. The l nic bases are clear. IMPRESSION: 1. Nasogastric tube in the stomach. Reviewed, dictated and finalized at location A.
--- NOTE | ~2021-12-28 | XR_ITS ---
EXAMINATION: XR sm bowel follow through WS DATE: 12/28/2021 13:49 INDICATION: Small bowel obstruction TECHNIQUE: Oral contrast was administered through the indwelling nasogastric tube. The DAP for this p rocedure was 11.954 Gycm2. Four images were obtained. COMPARISON: None. FINDINGS: There are mildly dilated small bowel loops, many of which demonstrate decrease in the amoun t of distention over the course of the examination. Transit time from the stomach to proximal colon w as approximately 45 minutes. IMPRESSION: 1. Improving small bowel obstruction. Reviewed, dictated and finalized at location A.
--- NOTE | ~2021-12-28 | CT_ITS ---
EXAMINATION: CT abdomen pelvis w con INDICATION: Diffuse abdominal pain TECHNIQUE: Computed tomographic images of the abdomen and pelvis were obtained after the administrati on of 100 cc of Omnipaque 350 intravenous contrast. The dose-length product (DLP) was 323.87 mGy-cm. Automated exposure control and iterative reconstruction technique were employed. COMPARISON: 01/20/2020 FINDINGS: Minimal dependent atelectasis is present in the lung bases. The heart size is normal. The l iver, spleen, pancreas, gallbladder, and adrenal glands are normal. There are peripelvic cysts of the otherwise normal kidneys. There are multiple dilated small bowel loops with an apparent transition p oint in the midline pelvis (image 114). The distal small bowel is relatively decompressed. There is s ome mucosal enhancement of the distal small bowel which could reflect inflammatory bowel disease. A s mall volume of pelvic ascites is present. There is no free intraperitoneal gas. There is moderate tho racolumbar spondylosis. IMPRESSION: 1. Small bowel obstruction Reviewed, dictated and finalized at location A. IMPRESSION: 1. Small bowel obstruction
[2021-12-28 02:59] LABS: Basophils Percent Auto 0.1 % (0.2-1.2); Hematocrit 38.7 % (37.0-47.0); Hemoglobin 12.8 g/dL (12.0-15.0); Immature Granulocyte Absolute 0.02 K/mm3 (0.00-0.031); Immature Granulocyte Percent A 0.2 % (0-0.5); Lymphocytes Absolute Auto 0.64 K/mm3 (0.9-3.2); Lymphocytes Percent Auto 6.2 % (18.3-44.2); Mean Corpuscular HGB Conc 33.1 g/dl (32-36); Mean Corpuscular Hemoglobin 31.3 pg (26-34); Mean Corpuscular Volume 94.6 fl (80-100); Mean Platelet Volume 12.6 fl (7.4-10.4); Monocytes Absolute Auto 0.7 K/mm3 (0.1-0.6); Monocytes Percent Auto 6.3 % (2.6-8.5); Neutrophils Percent Auto 87.2 % (45.5-73.1); Platelet Count Result 252 k/mm3 (150-375); Red Blood Count 4.09 M/mm3 (4.2-5.4); Red Cell Distribution Width 13.2 % (11.5-14.5); White Blood Count 10.3 K/mm3 (4.5-10.0)
[2021-12-28 03:10] LABS: Alanine Aminotransferase 18 U/L (4-35); Albumin Level 4.1 g/dL (3.5-5.1); Alkaline Phosphatase 79 U/L (38-126); Anion Gap 8 mmol/L (8-16); Aspartate Amino Transferase 27 U/L (14-36); Bilirubin,Total 0.8 mg/dL (0.2-1.3); Blood Urea Nitrogen 14 mg/dL (7-17); Calcium 8.9 mg/dL (8.4-10.2); Carbon Dioxide 25 mmol/L (22-30); Chloride 93 mmol/L (98-107); Estimated CRCL calculation 59 ml/min; Estimated Glomerular Filt Rate > 60; Glucose 214 mg/dL (65-110); Lipase 19 U/L (23-300); Potassium 3.8 mmol/L (3.4-5.0); Sodium 126 mmol/L (137-145)
--- NOTE | 2021-12-28 04:03 | ED.ABDPAIN ---
HPI - Abdominal Pain General Chief Complaint: Abdominal Pain Stated Complaint: abd pain Time Seen by Provider: 12/28/21 03:29 History of Present Illness HPI narrative: Patient is a 71-year-old female who presents ER with abdominal pain and vomiting. Patient has history of partial small bowel obstruction. Its been treated with bowel rest in the past. Patient reports she started having crampy abdominal pain 2 days ago. She had a bowel movement that day. Yesterday she had progressive worsening of her nausea and vomiting as well as her abdominal discomfort. She is no longer passing gas or having bowel movements. Pain is worse with movement and palpation. Related Data Home Medications Medication Instructions Recorded Confirmed rivastigmine tartrate 3 mg capsule 3 mg PO BID 11/29/21 11/29/21 Allergies Allergy/AdvReac Type Severity Reaction Status Date / Time No Known Allergies Allergy Unknown Verified 12/28/21 02:41 Review of Systems Review of Systems: All systems reviewed & are unremarkable except as noted in HPI and below Constitutional: Constitutional: Denies chills, Denies fever(s) and Denies weakness ENT: Denies nasal congestion and Denies sore throat Cardiovascular: Cardiovascular: Denies chest pain, Denies rapid heart rate and Denies radiating jaw, neck or arm pain Respiratory: Respiratory: Denies cough and Denies dyspnea Gastrointestinal: Gastrointestinal: Reports abdominal pain, Reports bloating, Reports nausea and Reports vomiting PMFSH Past Medical History Medical History Atrial fibrillation Encounter for other screening for malignant neoplasm of breast Hyperlipidemia Hypertension Osteopenia Postmenopausal Prediabetes Surgical History Surgical History H/O section 1983 and 1988 History of ovarian cystectomy Hx of appendectomy During one of the sections. Family History Family History Mother Family history of malignant neoplasm of breast in first degree relative Social History Social History Social History: The patient reports that she lives in [place] with her Rodolfo. She wishes to be a full code. She has designated her Rodolfo as her POA. She is a retired childcare provider. Smoking status: Never smoker Second hand tobacco smoke exposure: No Alcohol intake: never Substance use: never Gender identity (if verbalized by the patient): Female Spiritual care concerns: No Agree to blood products: Yes Exam Narrative: GENERAL: Uncomfortable-appearing, well-nourished, and in no acute distress. HEAD: Normocephalic, atraumatic. EYES: PERRL and EOMI. NECK: Supple. CHEST: Clear to auscultation. No respiratory distress. HEART: Regular rate and rhythm. Normal peripheral pulses. ABDOMEN: Mildly distended abdomen especially lower quadrants, with diffuse tenderness, normoactive bowel sounds. EXTREMITIES: Normal range of motion. No edema. SKIN: Warm, dry, no rash. NEURO Alert and oriented x3. PSYCH: Normal mood and affect. Course Course Emergency Course: Patient informed of results. NG tube to be placed. Contacted general surgery on-call, Dr. Gregg, he will consult. Patient admitted to hospital service. Vital Signs Vital signs: Vital Signs Temperature 97.5 F L 12/28/21 02:37 Pulse Rate 74 12/28/21 02:37 Respiratory Rate 22 H 12/28/21 02:37 Blood Pressure 154/53 H 12/28/21 02:37 Pulse Oximetry 100 12/28/21 02:37 Temperature 97.5 F L 12/28/21 02:37 Pulse Rate 63 12/28/21 05:17 Respiratory Rate 13 12/28/21 05:17 Blood Pressure 113/51 L 12/28/21 05:17 Pulse Oximetry 100 12/28/21 02:37 MDM - Abdominal Pain Lab Data Result diagrams: 12/28/21 02:50 12/28/21 02:50
[2021-12-28] MEDS: MORPHINE SULFATE (*CRX) 4 MG/ML INJ IV PUSH (04:28)
[2021-12-28] MEDS: ONDANSETRON INJ 4 MG/2 ML VIAL IV PUSH (04:29)
[2021-12-28 05:09] LABS: Add Urine Microscopic? YES; Appearance Urine Clear (Clear); Bilirubin Urine Negative (Negative); Blood Urine Negative (Negative); Color Urine Straw (Yellow); Glucose Urine UA Negative (Negative); Ketones Urine Trace mg/dL (Negative); Leukocyte Esterase Ur Negative LEU/UL (Negative); Nitrate Urine Negative (Negative); Protein Urine Negative (Negative); RBC Urine 0-2 /hpf (0-2); Specific Grav Ur 1.028 (1.001-1.035); Squamous Epithelial Cell Urine Rare /hpf (Few); Urobilinogen Urine Negative mg/dL (<2.0); WBC Urine 0-3 /hpf
[2021-12-28 06:11] LABS: SARS-CoV-2 RNA PCR Negative
--- NOTE | 2021-12-28 07:09 | ADMGEN ---
This patient, Ritu Gomez, was admitted to 2 Medical Room 253- @ 07. Patient/family oriented to hospital policies and general routines including ID bracelet, bed and alarms, visiting hours, pain management, procedures, bathroom and other care routines, personal items, smoking policy, room service/diet, and visiting hours. Information on how to activate the Rapid Response Team has been discussed. Patient/Family are encouraged to report perceived risks to care and to ask questions if they do not understand what they are told or what they should do.
[2021-12-28] MEDS: SODIUM CHLORIDE 0.9% IV 1,000 ML 125 ML IV CONT ×2 (07:21→17:03)
--- NOTE | 2021-12-28 09:17 | PM.IMHP ---
H&P: HPI History of Present Illness Date/Time: 12/28/21 09:17 Chief Complaint: 71 years old female with past medical history of AFib hypothyroidism, presented to the hospital with abdominal pain dull in nature generalized worsening gradually specially for the past 2 days associated with nausea and vomiting patient tried bowel rest at home but for the past 2 days her pain is worsening nausea vomiting worsening patient came to the ER CT scan of the abdomen was done showed bowel obstruction with transition point surgery was consulted nasogastric tube was placed patient was admitted for further evaluation and treatment Review of Systems Review of Systems: All systems reviewed & are unremarkable except as noted in HPI and below PMFSH Past Medical History Medical History Atrial fibrillation Encounter for other screening for malignant neoplasm of breast Hyperlipidemia Hypertension Osteopenia Postmenopausal Prediabetes Surgical History Surgical History H/O section 1983 and 1988 History of ovarian cystectomy Hx of appendectomy During one of the sections. Family History Family History Mother Family history of malignant neoplasm of breast in first degree relative Social History Social History Social History: The patient reports that she lives in [place] with her Rodolfo. She wishes to be a full code. She has designated her Rodolfo as her POA. She is a retired childcare provider. Smoking status: Never smoker Second hand tobacco smoke exposure: No Alcohol intake: never Substance use: never Substance use type: does not use Gender identity (if verbalized by the patient): Female Spiritual care concerns: No Agree to blood products: Yes Meds Home Medications and Allergies Home Medications Medication Instructions Recorded Confirmed Type levothyroxine 75 mcg tablet 75 mcg PO DAILY #30 tablet 09/26/21 12/28/21 Rx metoprolol succinate 25 mg 12.5 mg PO DAILY #90 tablet 11/05/21 12/28/21 Rx tablet,extended release 24 hr rivastigmine tartrate 3 mg capsule 3 mg PO BID 11/29/21 12/28/21 History pravastatin 20 mg tablet 20 mg PO HS #90 tablet 12/06/21 12/28/21 Rx Allergies Allergy/AdvReac Type Severity Reaction Status Date / Time No Known Allergies Allergy Unknown Verified 12/28/21 07:10 Vital Signs Vital Signs - 24 hr 12/28/21 02:37 12/28/21 04:37 12/28/21 04:38 Temperature 97.5 F L Pulse Rate 74 70 Respiratory Rate 22 H 12 Blood Pressure 154/53 H 131/61 Pulse Oximetry 100 12/28/21 04:45 12/28/21 04:46 12/28/21 05:10 Temperature Pulse Rate 68 70 64 Respiratory Rate 13 15 13 Blood Pressure 124/57 L Pulse Oximetry 12/28/21 05:15 12/28/21 05:17 12/28/21 05:18 Temperature Pulse Rate 68 63 70 Respiratory Rate 15 13 16 Blood Pressure 113/51 L Pulse Oximetry 12/28/21 05:30 12/28/21 05:31 12/28/21 06:09 Temperature Pulse Rate 68 69 70 Respiratory Rate 13 13 20 Blood Pressure 116/63 Pulse Oximetry 12/28/21 06:15 12/28/21 06:25 12/28/21 06:38 Temperature Pulse Rate 69 73 75 Respiratory Rate 17 17 19 Blood Pressure 137/60 Pulse Oximetry 12/28/21 06:46 12/28/21 06:47 Temperature Pulse Rate 66 69 Respiratory Rate 20 17 Blood Pressure 116/61 Pulse Oximetry Exam Const: General: no acute distress HENMT: Mouth: Yes dry mucous membranes Eyes: Sclera: sclerae normal Neck: Neck: supple Resp: Auscultation: clear to auscultation bilaterally Cardio: Heart sounds: no gallops and no murmurs GI: Inspection: distended GI Palp: Yes Soft to palpation Skin: General skin exam: normal color Neuro: Speech: normal speech Motor exam (neuro): 5/5 motor
[2021-12-28] MEDS: ENOXAPARIN 40 MG/0.4 ML SYRINGE SUB-Q (10:21)
[2021-12-28 10:28] LABS: Sodium 135 mmol/L (137-145)
--- NOTE | 2021-12-28 11:34 | PM.CNGS ---
Assessment and Plan Assessment and plan (1) Small bowel obstruction: Code(s): K56.609 - Unspecified intestinal obstruction, unspecified as to partial versus complete obstruction Status: Acute Assessment and Plan: exam benign this morning, continue conservative management with NG decompression and bowel rest, will get small bowel series for further evaluation History of Present Illness Consult details Consult date: 12/28/21 Reason for consult: abdominal pain Requesting physician: Shila Daly MD Narrative: The patient is a 71-year-old female presenting to the emergency department complaining of crampy abdominal pain, nausea and vomiting. The patient reports the symptoms have been progressively worsening over the last 2 days. The patient has had multiple abdominal surgeries in the past, as well as recurrent small-bowel obstructions. The patient reports the symptoms are very typical of her previous small-bowel obstructions. The patient states that all previous episodes resolved with conservative management. Review of Systems Constitutional: Constitutional: Reports anorexia, Denies chills, Reports fatigue, Denies increased appetite, Reports lethargy, Denies malaise, Reports poor appetite, Reports weakness, Denies weight gain and Denies weight loss Eyes: Eyes: Reports no additional eye complaints ENT: Reports system reviewed and no additional complaints, except as documented Cardiovascular: Cardiovascular: Reports no additional cardiovascular complaints Respiratory: Respiratory: Reports no additional respiratory complaints Gastrointestinal: Gastrointestinal: Reports as per HPI, Reports abdominal pain, Reports bloating, Reports change in bowel habits, Reports constipation, Reports GI cramping, Reports nausea and Reports vomiting Genitourinary: Genitourinary: Reports no additional female genitourinary complaints Musculoskeletal: Musculoskeletal: Reports no additional musculoskeletal complaints Integumentary/Breasts: Skin/Breast: Reports system reviewed and no additional complaints, except as docu Neurologic: Reports system reviewed and no additional complaints, except as documented Psychiatric: Psychiatric: Reports no additional psychiatric complaints Endocrine: Endocrine: Reports no additional endocrine complaints Hematologic/Lymphatic: Hematologic/Lymphatic: Reports no additional hematologic/lymphatic complaints Allergic/Immunologic: Allergic/Immunologic: Reports no additional allergic/immunologic complaints [facility] Past Medical History Medical History Atrial fibrillation Encounter for other screening for malignant neoplasm of breast Hyperlipidemia Hypertension Osteopenia Postmenopausal Prediabetes Surgical History Surgical History H/O section 1983 and 1988 History of ovarian cystectomy Hx of appendectomy During one of the sections. Family History Family History Mother Family history of malignant neoplasm of breast in first degree relative Social History Social History Social History: The patient reports that she lives in [place] with her Rodolfo. She wishes to be a full code. She has designated her Rodolfo as her POA. She is a retired childcare provider. Smoking status: Never smoker Second hand tobacco smoke exposure: No Alcohol intake: never Substance use: never Substance use type: does not use Gender identity (if verbalized by the patient): Female Spiritual care concerns: No Agree to blood products: Yes Meds Home Medications and Allergies Home Medications Medication Instructions Recorded Confirmed Type levothyroxine 75 mcg tablet 75 mcg PO DAILY #30 tablet 09/26/21 12/28/21 Rx metoprolol succinate 25 mg 12.5 mg PO D
[2021-12-28] MEDS: PRAVASTATIN SODIUM 20 MG TABLET PO (20:30)
[2021-12-28 22:38] LABS: Glucose Point of Care 80 mg/dl (65-105)
[2021-12-29] VITALS (7 sets, daily range): BP systolic 105–140; BP diastolic 54–72; PULSE 61–81; RESP 16–20; TEMP 36.3–36.9; O2SAT 98–100
[2021-12-29] MEDS: SODIUM CHLORIDE 0.9% IV 1,000 ML 125 ML IV CONT ×2 (01:05→09:00)
[2021-12-29 05:05] LABS: Basophils Percent Auto 0.4 % (0.2-1.2); Eosinophils Absolute Auto 0.1 K/mm3 (0-0.3); Eosinophils Percent Auto 1.3 % (0-4.4); Hemoglobin 10.7 g/dL (12.0-15.0); Immature Granulocyte Absolute 0.01 K/mm3 (0.00-0.031); Immature Granulocyte Percent A 0.2 % (0-0.5); Lymphocytes Absolute Auto 0.81 K/mm3 (0.9-3.2); Lymphocytes Percent Auto 17.9 % (18.3-44.2); Mean Corpuscular HGB Conc 32.4 g/dl (32-36); Mean Corpuscular Volume 95.7 fl (80-100); Mean Platelet Volume 12.8 fl (7.4-10.4); Monocytes Absolute Auto 0.7 K/mm3 (0.1-0.6); Neutrophils Percent Auto 65.2 % (45.5-73.1); Platelet Count Result 211 k/mm3 (150-375); Red Blood Count 3.45 M/mm3 (4.2-5.4); Red Cell Distribution Width 13.7 % (11.5-14.5); White Blood Count 4.5 K/mm3 (4.5-10.0)
[2021-12-29] MEDS: LEVOTHYROXINE SODIUM 75 MCG TABLET PO (05:11)
[2021-12-29 05:19] LABS: Alanine Aminotransferase 13 U/L (4-35); Alkaline Phosphatase 51 U/L (38-126); Anion Gap 3 mmol/L (8-16); Aspartate Amino Transferase 23 U/L (14-36); Bilirubin,Total 0.6 mg/dL (0.2-1.3); Blood Urea Nitrogen 12 mg/dL (7-17); Calcium 7.7 mg/dL (8.4-10.2); Carbon Dioxide 25 mmol/L (22-30); Chloride 108 mmol/L (98-107); Estimated CRCL calculation 55 ml/min; Estimated Glomerular Filt Rate > 60; Glucose 108 mg/dL (65-110); Sodium 136 mmol/L (137-145)
[2021-12-29] MEDS: ENOXAPARIN 40 MG/0.4 ML SYRINGE SUB-Q (08:56)
--- NOTE | 2021-12-29 09:52 | PM.IMPN ---
Progress Note: A&P Assessment and Plan (1) Small bowel obstruction: Code(s): K56.609 - Unspecified intestinal obstruction, unspecified as to partial versus complete obstruction Status: Acute Assessment and Plan: Reviewed CT scan of the abdomen shows transition point Surgery consult clear liquid diet s/p Nasogastric tube removed on 01/15/2022 Pain control Zofran (2) Atrial fibrillation: Qualifiers: Atrial fibrillation type: unspecified Qualified Code(s): I48.91 - Unspecified atrial fibrillation Code(s): I48.91 - Unspecified atrial fibrillation Status: Acute Assessment and Plan: Currently not on anticoagulation Resume home meds (3) Hypothyroidism: Qualifiers: Hypothyroidism type: acquired Qualified Code(s): E03.9 - Hypothyroidism, unspecified Code(s): E03.9 - Hypothyroidism, unspecified Status: Chronic Assessment and Plan: On levothyroxine (4) Prediabetes: Code(s): R73.03 - Prediabetes Status: Chronic Assessment and Plan: Monitor hemoglobin A1c (5) Hyperlipidemia: Qualifiers: Hyperlipidemia type: unspecified Qualified Code(s): E78.5 - Hyperlipidemia, unspecified Code(s): E78.5 - Hyperlipidemia, unspecified Status: Chronic Assessment and Plan: Continue home medication (6) Hyponatremia: Code(s): E87.1 - Hypo-osmolality and hyponatremia Status: Acute Assessment and Plan: Most likely related to dehydration IV fluid (7) Hypokalemia: Code(s): E87.6 - Hypokalemia Status: Acute Assessment and Plan: Acute hypokalemia replace Additional Plan DVT prophylaxis Lovenox Subjective Date/time seen: 12/29/21 09:52 Interval history: Patient presented to the hospital with abdominal pain was found to have bowel obstruction with transition point surgery was consulted nasogastric tube was placed obstructive CS was obtained patient condition improved nasogastric tube was removed on 11/27/2021 patient advanced to clear liquid diet Currently tolerating clear liquid diet Patient feels better today still have abdominal distension Patient denies fever headache chest pain shortness of breath I am seeing the patient for bowel obstruction Exam Narrative: Alert Chest no wheeze crackles Abdomen nontender but distended CVS S1 + S2 Negative Lower extremity edema Objective Data Vital Signs Vital Signs: Vital Signs - 24 hr 12/28/21 10:22 12/28/21 14:00 12/28/21 16:00 Temperature 98.6 F 98.6 F Pulse Rate 72 66 66 Respiratory Rate 15 15 Blood Pressure 122/55 L 122/55 L Pulse Oximetry 99 99 12/28/21 20:49 12/28/21 20:50 12/28/21 23:39 Temperature 97.9 F 97.9 F 98.0 F Pulse Rate 77 77 76 Respiratory Rate 16 16 16 Blood Pressure 116/50 L 116/50 L 110/45 L Pulse Oximetry 100 100 100 12/29/21 03:50 12/29/21 05:46 12/29/21 05:48 Temperature 97.5 F L 97.5 F L Pulse Rate 70 70 Respiratory Rate 18 18 Blood Pressure 117/55 L 117/55 L Pulse Oximetry 98 100 100 Intake/Output Intake/Output: Intake & Output 12/26/21 12/27/21 12/28/21 12/29/21 23:59 23:59 23:59 23:59 Intake Total 1740 2640 Output Total 450 Balance 1290 2640 Meds/Results Medications: Active Medications Generic Name Dose Route Start Last Admin Trade Name Freq PRN Reason Stop Dose Admin Acetaminophen 650 mg 12/28/21 09:14 Acetaminophen 325 Mg Tablet PO Q4H PRN Mild Pain (1-3) or Fever Hydrocodone Bitart/Acetaminophen 1 tab 12/28/21 09:14 Hydrocodone/Acetaminophen (*Crx) 5-325 Mg Tablet PO Q4H PRN Moderate Pain (4-6) Enoxaparin Sodium 40 mg 12/28/21 09:00 12/29/21 08:56 Enoxaparin 40 Mg/0.4 Ml Syringe SUB-Q 40 mg DAILY ASH[facility] Administration Sodium Chloride 1,000 mls @ 125 mls/hr 12/28/21 05:30 12/29/21 09:00 Normal Saline Iv IV CONT 125 mls/hr .Q8H ASHLEY Administration Levothyroxine Sodium 75 mcg
[2021-12-29 10:09] LABS: Magnesium 2.5 mg/dL (1.6-2.3)
[2021-12-29 10:11] LABS: Sodium 133 mmol/L (137-145)
--- NOTE | 2021-12-29 13:01 | PM.PNGS ---
Progress Note: A&P Assessment and Plan (1) Small bowel obstruction: Code(s): K56.609 - Unspecified intestinal obstruction, unspecified as to partial versus complete obstruction Status: Acute Assessment and Plan: resolved, SBS largely unremarkable, soft diet, home if mulugeta diet Subjective Subjective Date/Time Seen: 12/29/21 13:01 feels good, multiple BMs yest and overnight, mulugeta clears Review of Systems Review of Systems: All systems reviewed & are unremarkable except as noted in HPI and below Exam Const: General: cooperative, comfortable and no acute distress Orientation/consciousness: patient oriented x3 Resp: Auscultation: clear to auscultation bilaterally Cardio: Rate: regular rate Rhythm: regular rhythm GI: Inspection: normal to inspection and distended GI Palp: Yes Soft to palpation, No Tenderness to palpation present (GI), No Guarding due to palpation present (GI) and No Rigid due to palpation Objective Data Vital Signs Vital Signs: Vital Signs - 24 hr 12/28/21 14:00 12/28/21 16:00 12/28/21 20:49 Temperature 37.0 C 37.0 C 36.6 C Pulse Rate 66 66 77 Respiratory Rate 15 15 16 Blood Pressure 122/55 L 122/55 L 116/50 L Pulse Oximetry 99 99 100 12/28/21 20:50 12/28/21 23:39 12/29/21 03:50 Temperature 36.6 C 36.7 C Pulse Rate 77 76 Respiratory Rate 16 16 Blood Pressure 116/50 L 110/45 L Pulse Oximetry 100 100 98 12/29/21 05:46 12/29/21 05:48 12/29/21 10:54 Temperature 36.4 C L 36.4 C L 36.6 C Pulse Rate 70 70 61 Respiratory Rate 18 18 16 Blood Pressure 117/55 L 117/55 L 120/56 L Pulse Oximetry 100 100 100 Intake/Output Intake/Output: Intake & Output 12/26/21 12/27/21 12/28/21 12/29/21 23:59 23:59 23:59 23:59 Intake Total 1740 3540 Output Total 450 Balance 1290 3540 Meds/Results Medications: Active Medications Generic Name Dose Route Start Last Admin Trade Name Freq PRN Reason Stop Dose Admin Acetaminophen 650 mg 12/28/21 09:14 Acetaminophen 325 Mg Tablet PO Q4H PRN Mild Pain (1-3) or Fever Hydrocodone Bitart/Acetaminophen 1 tab 12/28/21 09:14 Hydrocodone/Acetaminophen (*Crx) 5-325 Mg Tablet PO Q4H PRN Moderate Pain (4-6) Enoxaparin Sodium 40 mg 12/28/21 09:00 12/29/21 08:56 Enoxaparin 40 Mg/0.4 Ml Syringe SUB-Q 40 mg DAILY [facility] Administration Levothyroxine Sodium 75 mcg 12/28/21 06:30 12/29/21 05:11 Levothyroxine Sodium 75 Mcg Tablet PO 75 mcg DAILY@0630 [facility] Administration Metoprolol Succinate 12.5 mg 12/29/21 14:00 Metoprolol Succinate Ext Rel 12.5 Mg Tabcr PO DAILY [facility] Morphine Sulfate 4 mg 12/28/21 05:29 Morphine Sulfate (*Crx) 4 Mg/Ml Inj IV PUSH Q2H PRN Pain Rated 7-10 Ondansetron HCl 4 mg 12/28/21 05:29 Ondansetron Inj 4 Mg/2 Ml Vial IV PUSH Q4H PRN Nausea Potassium Chloride 40 meq 12/29/21 13:00 Potassium Chloride 20 Meq Tablet PO 12/29/21 17:01 Q4HR [facility] Pravastatin Sodium 20 mg 12/28/21 21:00 12/28/21 20:30 Pravastatin Sodium 20 Mg Tablet PO 20 mg HS [facility] Administration Rivastigmine Tartrate 3 mg 12/28/21 09:30 12/29/21 09:05 Rivastigmine Tartrate 1.5 Mg Capsule PO Not Given Q12HR [facility] Radiology Results: ITS Impressions Abdomen X-Ray 12/28/21 08:12 IMPRESSION: 1. Nasogastric tube in the stomach. Abdomen/Pelvis CT 12/28/21 09:37 IMPRESSION: 1. Small bowel obstruction Small Bowel X-Ray 12/28/21 14:21 IMPRESSION: 1. Improving small bowel obstruction. Labs Labs: Laboratory Results - last 24 hr 12/28/21 12/29/21 12/29/21 22:34 04:44 04:46 WBC RBC Hgb Hct MCV MCH MCHC RDW Plt Count MPV Immature Gran % (Auto) Neut % (Auto) Lymph % (Auto) [place] % (Auto) Eos % (Auto) Baso % (Auto) Lymph # (Auto) [place] # (Auto) Eos # (Auto) Baso # (Auto) Abs Immat Gran (auto) Absolute Neuts (auto) Absol
[2021-12-29] MEDS: POTASSIUM CHLORIDE 20 MEQ TABLET 40 MEQ PO ×2 (14:17→16:18)
[2021-12-29] MEDS: METOPROLOL SUCCINATE EXT REL 12.5 MG TABCR PO (14:18)
[2021-12-29] MEDS: PRAVASTATIN SODIUM 20 MG TABLET PO (20:15)
[2021-12-30 05:18] LABS: Basophils Percent Auto 0.2 % (0.2-1.2); Eosinophils Absolute Auto 0.1 K/mm3 (0-0.3); Hematocrit 32.1 % (37.0-47.0); Hemoglobin 10.2 g/dL (12.0-15.0); Immature Granulocyte Absolute 0.01 K/mm3 (0.00-0.031); Immature Granulocyte Percent A 0.2 % (0-0.5); Lymphocytes Absolute Auto 1.49 K/mm3 (0.9-3.2); Lymphocytes Percent Auto 32.7 % (18.3-44.2); Mean Corpuscular HGB Conc 31.8 g/dl (32-36); Mean Corpuscular Hemoglobin 31.2 pg (26-34); Mean Corpuscular Volume 98.2 fl (80-100); Mean Platelet Volume 12.5 fl (7.4-10.4); Monocytes Absolute Auto 0.6 K/mm3 (0.1-0.6); Neutrophils Absolute Auto 2.4 K/mm3 (1.3-6.7); Neutrophils Percent Auto 51.9 % (45.5-73.1); Platelet Count Result 197 k/mm3 (150-375); Red Blood Count 3.27 M/mm3 (4.2-5.4); Red Cell Distribution Width 13.4 % (11.5-14.5); White Blood Count 4.6 K/mm3 (4.5-10.0)
[2021-12-30 05:32] LABS: Alanine Aminotransferase 13 U/L (4-35); Albumin Level 2.8 g/dL (3.5-5.1); Alkaline Phosphatase 57 U/L (38-126); Anion Gap 2 mmol/L (8-16); Aspartate Amino Transferase 21 U/L (14-36); Bilirubin,Total 0.3 mg/dL (0.2-1.3); Blood Urea Nitrogen 7 mg/dL (7-17); Calcium 8.4 mg/dL (8.4-10.2); Carbon Dioxide 27 mmol/L (22-30); Chloride 109 mmol/L (98-107); Estimated CRCL calculation 55 ml/min; Estimated Glomerular Filt Rate > 60; Glucose 108 mg/dL (65-110); Potassium 3.7 mmol/L (3.4-5.0); Sodium 138 mmol/L (137-145)
[2021-12-30] MEDS: LEVOTHYROXINE SODIUM 75 MCG TABLET PO (05:50)
[2021-12-30 08:06] VITALS: O2SAT 98
[2021-12-30] MEDS: ENOXAPARIN 40 MG/0.4 ML SYRINGE SUB-Q (08:30)
[2021-12-30] MEDS: RIVASTIGMINE TARTRATE 1.5 MG CAPSULE 3 MG PO (08:32)
--- NOTE | 2021-12-30 08:56 | PM.DS ---
DS: Admitting Diagnosis Discharge Date 12/30/2021 Admitting Diagnosis Abdominal pain DS: Discharge Diagnosis Discharge Diagnosis (1) Small bowel obstruction: Code(s): K56.609 - Unspecified intestinal obstruction, unspecified as to partial versus complete obstruction Status: Acute Assessment and Plan: Reviewed CT scan of the abdomen shows transition point Surgery consult s/p Nasogastric tube removed on 12/28 Pain control Zofran Small-bowel follow-through was done Follow-up with surgery as outpatient Advance diet as tolerated (2) Atrial fibrillation: Qualifiers: Atrial fibrillation type: unspecified Qualified Code(s): I48.91 - Unspecified atrial fibrillation Code(s): I48.91 - Unspecified atrial fibrillation Status: Acute Assessment and Plan: Currently not on anticoagulation follow-up with PCP Resume home meds (3) Hypothyroidism: Qualifiers: Hypothyroidism type: acquired Qualified Code(s): E03.9 - Hypothyroidism, unspecified Code(s): E03.9 - Hypothyroidism, unspecified Status: Chronic Assessment and Plan: On levothyroxine (4) Prediabetes: Code(s): R73.03 - Prediabetes Status: Chronic Assessment and Plan: Monitor hemoglobin A1c (5) Hyperlipidemia: Qualifiers: Hyperlipidemia type: unspecified Qualified Code(s): E78.5 - Hyperlipidemia, unspecified Code(s): E78.5 - Hyperlipidemia, unspecified Status: Chronic Assessment and Plan: Continue home medication (6) Hyponatremia: Code(s): E87.1 - Hypo-osmolality and hyponatremia Status: Acute Assessment and Plan: Most likely related to dehydration IV fluid resolved follow-up with PCP as out (7) Hypokalemia: Code(s): E87.6 - Hypokalemia Status: Acute Assessment and Plan: Acute hypokalemia replaced CMP in 1 week DS: Summary Hospital Course Hospital Course: Patient was admitted to the hospital with abdominal pain was found to have small-bowel obstruction with transition point treated conservatively with IV fluid nasogastric tube advance diet as tolerated surgery was consulted patient discharged in good condition follow-up with surgery and PCP as outpatient Time Spent with Patient Time attestation: Total time spent providing and/or coordinating discharge services: DS: Data Data Completed and Pending Labs on day of discharge: Labs from last 24 hours 12/30/21 12/30/21 12/29/21 04:52 04:52 09:53 WBC 4.6 RBC 3.27 L Hgb 10.2 L Hct 32.1 L MCV 98.2 MCH 31.2 MCHC 31.8 L RDW 13.4 Plt Count 197 MPV 12.5 H Immature Gran % (Auto) 0.2 Neut % (Auto) 51.9 Lymph % (Auto) 32.7 [place] % (Auto) 13.0 H Eos % (Auto) 2.0 Baso % (Auto) 0.2 Lymph # (Auto) 1.49 [place] # (Auto) 0.6 Eos # (Auto) 0.1 Baso # (Auto) 0.0 Abs Immat Gran (auto) 0.01 Absolute Neuts (auto) 2.4 Absolute Nucleated RBC 0.0 Nucleated RBC % 0.0 Sodium 138 133 L Potassium 3.7 Chloride 109 H Carbon Dioxide 27 Anion Gap 2 L BUN 7 D Creatinine 0.70 Estim Creat Clear Calc 55 Estimated GFR > 60 Glucose 108 Calcium 8.4 Magnesium Total Bilirubin 0.3 AST 21 ALT 13 Alkaline Phosphatase 57 Total Protein 5.0 L Albumin 2.8 L 12/29/21 04:44 WBC RBC Hgb Hct MCV MCH MCHC RDW Plt Count MPV Immature Gran % (Auto) Neut % (Auto) Lymph % (Auto) [place] % (Auto) Eos % (Auto) Baso % (Auto) Lymph # (Auto) [place] # (Auto) Eos # (Auto) Baso # (Auto) Abs Immat Gran (auto) Absolute Neuts (auto) Absolute Nucleated RBC Nucleated RBC % Sodium Potassium Chloride Carbon Dioxide Anion Gap BUN Creatinine Estim Creat Clear Calc Estimated GFR Glucose Calcium Magnesium 2.5 H Total Bilirubin AST ALT Alkaline Phosphatase Total Protein Albumin Discharge Plan
[2021-12-30 09:31] LABS: Magnesium 2.4 mg/dL (1.6-2.3)
--- NOTE | 2021-12-30 10:32 | PM.PNGS ---
Progress Note: A&P Assessment and Plan (1) Small bowel obstruction: Code(s): K56.609 - Unspecified intestinal obstruction, unspecified as to partial versus complete obstruction Status: Acute Assessment and Plan: resolved, ok to advance to regular diet, ok to dc home from surgical standpoint Subjective Subjective Date/Time Seen: 12/30/21 10:32 feels good, cont to have bowel fxn, mulugeta soft diet Review of Systems Review of Systems: All systems reviewed & are unremarkable except as noted in HPI and below Exam Const: General: cooperative, comfortable and no acute distress Orientation/consciousness: patient oriented x3 Resp: Auscultation: clear to auscultation bilaterally Cardio: Rate: regular rate Rhythm: regular rhythm GI: Inspection: normal to inspection and non-distended GI Palp: Yes Soft to palpation, No Tenderness to palpation present (GI), No Guarding due to palpation present (GI) and No Rigid due to palpation Objective Data Vital Signs Vital Signs: Vital Signs - 24 hr 12/29/21 10:54 12/29/21 14:18 12/29/21 14:42 Temperature 36.6 C 36.9 C Pulse Rate 61 61 73 Respiratory Rate 16 16 Blood Pressure 120/56 L 140/72 Pulse Oximetry 100 100 12/29/21 22:00 12/30/21 08:06 Temperature 36.3 C L Pulse Rate 81 Respiratory Rate 20 Blood Pressure 105/54 L Pulse Oximetry 98 98 Intake/Output Intake/Output: Intake & Output 12/27/21 12/28/21 12/29/21 12/30/21 23:59 23:59 23:59 23:59 Intake Total 1740 4020 1190 Output Total 450 Balance 1290 4020 1190 Meds/Results Medications: Active Medications Generic Name Dose Route Start Last Admin Trade Name Freq PRN Reason Stop Dose Admin Acetaminophen 650 mg 12/28/21 09:14 Acetaminophen 325 Mg Tablet PO Q4H PRN Mild Pain (1-3) or Fever Hydrocodone Bitart/Acetaminophen 1 tab 12/28/21 09:14 Hydrocodone/Acetaminophen (*Crx) 5-325 Mg Tablet PO Q4H PRN Moderate Pain (4-6) Enoxaparin Sodium 40 mg 12/28/21 09:00 12/30/21 08:30 Enoxaparin 40 Mg/0.4 Ml Syringe SUB-Q 40 mg DAILY [facility] Administration Levothyroxine Sodium 75 mcg 12/28/21 06:30 12/30/21 05:50 Levothyroxine Sodium 75 Mcg Tablet PO 75 mcg DAILY@0630 [facility] Administration Metoprolol Succinate 12.5 mg 12/30/21 14:00 Metoprolol Succinate Ext Rel 12.5 Mg Tabcr PO DAILY@1400 [facility] Morphine Sulfate 4 mg 12/28/21 05:29 Morphine Sulfate (*Crx) 4 Mg/Ml Inj IV PUSH Q2H PRN Pain Rated 7-10 Ondansetron HCl 4 mg 12/28/21 05:29 Ondansetron Inj 4 Mg/2 Ml Vial IV PUSH Q4H PRN Nausea Pravastatin Sodium 20 mg 12/28/21 21:00 12/29/21 20:15 Pravastatin Sodium 20 Mg Tablet PO 20 mg HS ASHLEY Administration Rivastigmine Tartrate 3 mg 12/28/21 09:30 12/30/21 08:32 Rivastigmine Tartrate 1.5 Mg Capsule PO 3 mg Q12HR [facility] Administration Radiology Results: ITS Impressions Abdomen X-Ray 12/28/21 08:12 IMPRESSION: 1. Nasogastric tube in the stomach. Abdomen/Pelvis CT 12/28/21 09:37 IMPRESSION: 1. Small bowel obstruction Small Bowel X-Ray 12/28/21 14:21 IMPRESSION: 1. Improving small bowel obstruction. Labs Labs: Laboratory Results - last 24 hr 12/30/21 12/30/21 12/30/21 04:47 04:52 04:52 WBC 4.6 RBC 3.27 L Hgb 10.2 L Hct 32.1 L MCV 98.2 MCH 31.2 MCHC 31.8 L RDW 13.4 Plt Count 197 MPV 12.5 H Immature Gran % (Auto) 0.2 Neut % (Auto) 51.9 Lymph % (Auto) 32.7 [place] % (Auto) 13.0 H Eos % (Auto) 2.0 Baso % (Auto) 0.2 Lymph # (Auto) 1.49 [place] # (Auto) 0.6 Eos # (Auto) 0.1 Baso # (Auto) 0.0 Abs Immat Gran (auto) 0.01 Absolute Neuts (auto) 2.4 Absolute Nucleated RBC 0.0 Nucleated RBC % 0.0 Sodium 138 Potassium 3.7 Chloride 109 H Carbon Dioxide 27 Anion Gap 2 L BUN 7 D Creatinine 0.70 Estim Creat Clear Calc 55 Estimated GFR > 60 Glucose
== END 2021-12-30 10:13 | disposition home or self-care (01) | DRG 389 ==
LOC: ANHED 05:08 → ANH2MED 05:54
PROVIDERS: Admitting Provider Internal Medicine; Emergency Provider Emergency Medicine; PCP Family Medicine; Visit Provider Internal Medicine
DX: K56.609 Unspecified intestinal obstruction, unspecified as to partial versus complete obstruction (principal); E87.1 Hypo-osmolality and hyponatremia; I48.91 Unspecified atrial fibrillation; E03.9 Hypothyroidism, unspecified; R73.03 Prediabetes; Z20.822 Contact with and (suspected) exposure to COVID-19; E78.5 Hyperlipidemia, unspecified; E87.6 Hypokalemia; E86.0 Dehydration; M85.80 Other specified disorders of bone density and structure, unspecified site; I10 Essential (primary) hypertension; Z90.49 Acquired absence of other specified parts of digestive tract
CPT/HCPCS: 36415; 74177; 74250; 80053; 81001; 82948; 83690; 83735; 84295; 85025; 96361; 96374; 96375; 99285; A9270; C9803; G0378; J1650; J2270; J2405; J7030; Q9967; U0003; U0005

== ENCOUNTER 2022-04-24 19:27 | Inpatient (IN) | payer MEDICARE, SELFPAY ==
--- NOTE | ~2022-04-24 | XR_ITS ---
EXAMINATION: XR abdomen/kub 1V INDICATION: Lower abdominal pain TECHNIQUE: Supine views of the abdomen were obtained on 2 radiographs. COMPARISON: CT from yesterday FINDINGS: No definitely dilated loops of bowel are identified. The bowel gas pattern is nonspecific. Contrast from yesterday's CT examination partially opacifies the urinary bladder. There is no free in traperitoneal gas. The visualized lung bases are clear. There is moderate osteoarthritis of the hips. IMPRESSION: 1. No definitely dilated loops of bowel are identified. Reviewed, dictated and finalized at location L.
--- NOTE | ~2022-04-24 | CT_ITS ---
EXAMINATION: CT abdomen pelvis w con DATE: 04/24/2022 21:31 INDICATION: Lower abdominal pain. History of bowel obstruction. TECHNIQUE: Computed tomography (CT) of the abdomen and pelvis was performed with 100 cc Omnipaque 300 intravenous contrast. The dose-length product was 265.50 mGy-cm. Automated exposure control and iter ative reconstruction technique were employed. COMPARISON: CT dated 12/28/2021 FINDINGS: Lung bases unremarkable. Heart size normal. No significant pleural or pericardial effusion. The liver, spleen, adrenal glands and kidneys are unremarkable. There are left parapelvic renal cyst s. There is fatty replacement of the pancreas. Gallbladder is distended. There is mild abnormal thick ening of the stomach. There is a dilated loop of small bowel in the pelvis with focal small bowel wal l thickening in the left midabdomen. The segment of thickening measures approximately 5 cm in the mor e proximal small bowel is dilated and contains feces and fluid. The distal small bowel is nondistende d. No significant abnormality of the colon is identified. There is moderate lumbar spondylosis with g eneralized demineralization. No free air or free fluid. There are degenerative changes of the sacroil iac joints. IMPRESSION: 1. Abnormal thickening of the mid small bowel with moderate distention of the more proximal small bow el containing fecal material and fluid, consistent with at least partial obstruction. There is also m ild thickening of the stomach. Considerations include infectious gastroenteritis and inflammatory bow el disease such as Crohn's disease. Reviewed, dictated and finalized at location A. IMPRESSION: 1. Abnormal thickening of the mid small bowel with moderate distention of the m ore proximal small bowel containing fecal material and fluid, consistent with a t least partial obstruction. There is also mild thickening of the stomach. Cons iderations include infectious gastroenteritis and inflammatory bowel disease oneill ch as Crohn's disease.
[2022-04-24 19:55] VITALS: BP 134/54; PULSE 77; RESP 18; TEMP 36.6; O2SAT 100
[2022-04-24 20:47] LABS: Appearance Urine Clear (Clear); Basophils Percent Auto 0.1 % (0.2-1.2); Bilirubin Urine Negative (Negative); Blood Urine Negative (Negative); Color Urine Yellow (Yellow); Eosinophils Percent Auto 0.1 % (0-4.4); Glucose Urine UA Negative (Negative); Hematocrit 39.2 % (37.0-47.0); Hemoglobin 12.5 g/dL (12.0-15.0); Immature Granulocyte Absolute 0.04 K/mm3 (0.00-0.031); Immature Granulocyte Percent A 0.4 % (0-0.5); Ketones Urine 3+ mg/dL (Negative); Leukocyte Esterase Ur 1+ LEU/UL (Negative); Lymphocytes Absolute Auto 0.62 K/mm3 (0.9-3.2); Lymphocytes Percent Auto 6.3 % (18.3-44.2); Mean Corpuscular HGB Conc 31.9 g/dl (32-36); Mean Corpuscular Hemoglobin 30.7 pg (26-34); Mean Corpuscular Volume 96.3 fl (80-100); Mean Platelet Volume 12.3 fl (7.4-10.4); Monocytes Absolute Auto 0.4 K/mm3 (0.1-0.6); Monocytes Percent Auto 3.8 % (2.6-8.5); Neutrophils Absolute Auto 8.7 K/mm3 (1.3-6.7); Neutrophils Percent Auto 89.3 % (45.5-73.1); Nitrate Urine Negative (Negative); Platelet Count Result 223 k/mm3 (150-375); Protein Urine Negative (Negative); Red Blood Count 4.07 M/mm3 (4.2-5.4); Red Cell Distribution Width 13.7 % (11.5-14.5); Urobilinogen Urine 0.2 mg/dL (<2.0); White Blood Count 9.8 K/mm3 (4.5-10.0)
[2022-04-24 20:52] LABS: Mucus Urine Rare /lpf; Squamous Epithelial Cell Urine Rare /hpf (Few)
--- NOTE | 2022-04-24 20:55 | ED.ABDPAIN ---
HPI - Abdominal Pain General Chief Complaint: Abdominal Pain Stated Complaint: ABD pain, N/V/D Time Seen by Provider: 04/24/22 20:26 History of Present Illness HPI narrative: 72-year-old female presenting with abdominal pain that started today, she had eaten dinner, and then afterwards started feeling queasy, and threw up. She is endorsing pain to her lower abdomen, she has had prior symptoms like this before that had been found to be bowel obstructions. Last SBO was about 6 months ago. Last bowel movement was before dinner. No fevers or chills, no dysuria. Related Data Home Medications Medication Instructions Recorded Confirmed rivastigmine tartrate 3 mg capsule 1.5 mg PO BID 11/29/21 12/28/21 Allergies Allergy/AdvReac Type Severity Reaction Status Date / Time No Known Allergies Allergy Unknown Verified 04/24/22 20:36 Review of Systems Review of Systems: CONST: No fever. HEENT: No sore throat C/V: No chest pain RESP: No cough GI: Reports abdominal pain, nausea, vomiting : No dysuria. M/S: No joint pain. SKIN: No rash. NEURO: [No headache or focal numbness or weakness] PSYCH: [No depression] [facility] Past Medical History Medical History Atrial fibrillation Encounter for other screening for malignant neoplasm of breast Hyperlipidemia Hypertension Osteopenia Postmenopausal Prediabetes Surgical History Surgical History H/O section 1983 and 1988 History of ovarian cystectomy Hx of appendectomy During one of the sections. Family History Family History Mother Family history of malignant neoplasm of breast in first degree relative Social History Social History Social History: The patient reports that she lives in [place] with her Rodolfo. She wishes to be a full code. She has designated her Rodolfo as her POA. She is a retired childcare provider. Smoking status: Never smoker Second hand tobacco smoke exposure: No Alcohol intake: never Substance use: never Substance use type: does not use Gender identity (if verbalized by the patient): Female Spiritual care concerns: No Agree to blood products: Yes Exam Narrative: EXAMINATION OF ORGAN SYSTEMS/BODY AREAS: Constitutional: Vital signs per nursing GENERAL: Resting in chair, appears slightly uncomfortable HEAD: Normal with no signs of head trauma. EYES: EOMI, conjunctiva normal ENT: Hearing grossly intact LUNGS: Nonlabored breathing. HEART: [Regular rate and rhythm] ABD: Soft, minimally tender to palpation in lower abdomen EXT: Normal range of motion SKIN: No rashes or lesions. NEURO: [Alert and oriented x 3. No gross focal sensory or strength deficits.] PSYCH: Normal affect Course Vital Signs Vital signs: Vital Signs Temperature 97.9 F 04/24/22 19:55 Pulse Rate 77 04/24/22 19:55 Respiratory Rate 18 04/24/22 19:55 Blood Pressure 134/54 L 04/24/22 19:55 Pulse Oximetry 100 04/24/22 19:55 Oxygen Delivery Room Air 04/24/22 19:55 Temperature 97.9 F 04/24/22 19:55 Pulse Rate 75 04/24/22 22:30 Respiratory Rate 18 04/24/22 22:30 Blood Pressure 128/58 L 04/24/22 22:30 Pulse Oximetry 100 04/24/22 22:30 Oxygen Delivery Room Air 04/24/22 19:55 MDM - Abdominal Pain MDM Narrative Medical decision making narrative: 72-year-old female with history of SBO presenting with nausea, vomiting, abdominal pain that feels similar to her prior episodes of SBO. Vital signs stable, on exam she does appear mildly comfortable with soft abdomen that is slightly tender to palpation. Highly suspicious for SBO, versus possible UTI, doubt appendicitis given history of appendectomy, or possibly diverticulitis. CT shows partial SBO; pt was treated with Zofran and morphine, and on re
[2022-04-24 20:56] LABS: Add Urine Microscopic? YES
[2022-04-24] MEDS: LACTATED RINGERS 1,000 ML 999 ML IV CONT (21:07)
[2022-04-24] MEDS: ONDANSETRON INJ 4 MG/2 ML VIAL IV PUSH (21:07)
[2022-04-24] MEDS: MORPHINE SULFATE (*CRX) 4 MG/ML INJ IV PUSH (21:07)
[2022-04-24 21:13] LABS: Alanine Aminotransferase 18 U/L (6-35); Albumin Level 4.1 g/dL (3.5-5.1); Alkaline Phosphatase 82 U/L (38-126); Anion Gap 8 mmol/L (8-16); Aspartate Amino Transferase 28 U/L (14-36); Bilirubin,Total 0.5 mg/dL (0.2-1.3); Blood Urea Nitrogen 21 mg/dL (7-17); Calcium 9.4 mg/dL (8.4-10.2); Carbon Dioxide 28 mmol/L (22-30); Chloride 98 mmol/L (98-107); Estimated CRCL calculation 51 ml/min; Estimated Glomerular Filt Rate > 60; Glucose 170 mg/dL (65-110); Lipase 17 U/L (23-300); Potassium 4.1 mmol/L (3.4-5.0); Sodium 134 mmol/L (137-145)
--- NOTE | 2022-04-24 22:16 | PM.IMHP ---
H&P: HPI History of Present Illness Date/Time: 04/24/22 22:16 Chief Complaint: abdominal pain Narrative: This is a 72-year-old female with past medical history significant for hypothyroidism, hypertension, dyslipidemia, osteopenia, atrial fibrillation, recurrent small-bowel obstruction. patient comes to the emergency room due to abdominal pain diarrhea started in the evening and progressively got worse denies any nausea or vomiting had been passing gas and had a stools earlier in the day denies any bright red blood per rectum on or melena or hematemesis, no fevers, no rigors, no chills. Preliminary workup was significant for CT of abdomen and pelvis with Abnormal thickening of the mid small bowel with moderate distention of the more proximal small bowel containing fecal material and fluid, consistent with at least partial obstruction. There is also mild thickening of the stomach. Considerations include infectious gastroenteritis and inflammatory bowel disease such as Crohn's disease. patient is been admitted for further evaluation management and treatment. Review of Systems Review of Systems: Abdominal pain, decreased appetite Constitutional: Constitutional: Denies chills, Denies fever(s), Denies malaise, Denies night sweats and Denies weakness Eyes: Eyes: Denies change in vision ENT: Denies dysphagia, Denies vertigo, Denies dizziness and Denies odynophagia Cardiovascular: Cardiovascular: Denies chest pain, Denies syncope, Denies irregular heart rhythm, Denies lightheadedness, Denies palpitations and Denies dyspnea on exertion Respiratory: Respiratory: Denies chest congestion and Denies excessive phlegm production Gastrointestinal: Gastrointestinal: Reports abdominal pain, Denies melena, Reports bloating, Denies coffee ground emesis, Denies dyspepsia, Denies heartburn, Denies nausea and Denies vomiting Genitourinary: Genitourinary: Denies dysuria Musculoskeletal: Musculoskeletal: Denies back pain and Denies joint swelling Integumentary/Breasts: Skin/Breast: Denies rash Neurologic: Denies focal weakness and Denies Sensory deficit (Neuro) Psychiatric: Psychiatric: Reports no additional psychiatric complaints and Reports as per HPI Endocrine: Endocrine: Denies cold intolerance, Denies fatigue, Denies flushing, Denies heat intolerance, Denies polyphagia, Denies polydipsia and Denies palpitations Hematologic/Lymphatic: Hematologic/Lymphatic: Reports no additional hematologic/lymphatic complaints and Reports as per HPI Allergic/Immunologic: Allergic/Immunologic: Reports no additional allergic/immunologic complaints and Reports as per HPI [facility] Past Medical History Medical History Atrial fibrillation Encounter for other screening for malignant neoplasm of breast Hyperlipidemia Hypertension Osteopenia Postmenopausal Prediabetes Surgical History Surgical History H/O section 1983 and 1988 History of ovarian cystectomy Hx of appendectomy During one of the sections. Family History Family History Mother Family history of malignant neoplasm of breast in first degree relative Social History Social History Social History: The patient reports that she lives in [place] with her Rodolfo. She wishes to be a full code. She has designated her Rodolfo as her POA. She is a retired childcare provider. Smoking status: Never smoker Second hand tobacco smoke exposure: No Alcohol intake: never Substance use: never Substance use type: does not use Gender identity (if verbalized by the patient): Female Spiritual care concerns: No Agree to blood products: Yes Meds Home Medications and Allergies Home Medications Medication Instructions Recorded Confirmed Type rivastigmine tartrate 3 mg
[2022-04-24 22:30] VITALS: BP 128/58; PULSE 75; RESP 18; O2SAT 100
[2022-04-24 23:14] LABS: SARS-CoV-2 RNA PCR Negative
[2022-04-25 00:21] VITALS: BP 121/52; PULSE 70; RESP 18; O2SAT 99
[2022-04-25 00:30] VITALS: BP 154/56; PULSE 85; RESP 17; TEMP 37.1; O2SAT 100; BMI 20.5
[2022-04-25 00:50] VITALS: BMI 22.4
[2022-04-25 05:06] VITALS: BP 136/46; PULSE 79; RESP 18; TEMP 37.1; O2SAT 100
[2022-04-25 08:00] VITALS: O2SAT 100
[2022-04-25 08:36] LABS: Basophils Percent Auto 0.1 % (0.2-1.2); Eosinophils Absolute Auto 0.1 K/mm3 (0-0.3); Eosinophils Percent Auto 0.7 % (0-4.4); Hemoglobin 12.3 g/dL (12.0-15.0); Immature Granulocyte Absolute 0.02 K/mm3 (0.00-0.031); Immature Granulocyte Percent A 0.3 % (0-0.5); Lymphocytes Absolute Auto 0.96 K/mm3 (0.9-3.2); Lymphocytes Percent Auto 12.5 % (18.3-44.2); Mean Corpuscular HGB Conc 32.4 g/dl (32-36); Mean Corpuscular Hemoglobin 31.2 pg (26-34); Mean Corpuscular Volume 96.4 fl (80-100); Mean Platelet Volume 12.7 fl (7.4-10.4); Monocytes Absolute Auto 0.7 K/mm3 (0.1-0.6); Monocytes Percent Auto 9.1 % (2.6-8.5); Neutrophils Absolute Auto 5.9 K/mm3 (1.3-6.7); Neutrophils Percent Auto 77.3 % (45.5-73.1); Platelet Count Result 220 k/mm3 (150-375); Red Blood Count 3.94 M/mm3 (4.2-5.4); Red Cell Distribution Width 13.8 % (11.5-14.5); White Blood Count 7.7 K/mm3 (4.5-10.0)
[2022-04-25 08:55] LABS: Alanine Aminotransferase 15 U/L (6-35); Albumin Level 3.5 g/dL (3.5-5.1); Alkaline Phosphatase 73 U/L (38-126); Anion Gap 6 mmol/L (8-16); Aspartate Amino Transferase 24 U/L (14-36); Bilirubin,Total 0.6 mg/dL (0.2-1.3); Blood Urea Nitrogen 13 mg/dL (7-17); Carbon Dioxide 29 mmol/L (22-30); Chloride 102 mmol/L (98-107); Estimated CRCL calculation 51 ml/min; Estimated Glomerular Filt Rate > 60; Glucose 113 mg/dL (65-110); Potassium 3.8 mmol/L (3.4-5.0); Sodium 137 mmol/L (137-145)
[2022-04-25 09:58] LABS: Thyroid Stimulating Hormone Reflex 0.287 uIU/mL (0.465-4.68)
[2022-04-25 10:38] LABS: Free T4 Free Thyroxine Reflex 1.22 ng/dL (0.78-2.19)
--- NOTE | 2022-04-25 11:45 | PM.IMPN ---
Progress Note: A&P Assessment and Plan (1) Partial small bowel obstruction: Code(s): K56.600 - Partial intestinal obstruction, unspecified as to cause Status: Acute Assessment and Plan: Abd/Pel CT found partial bowel obstruction with abnormal thickening Reported that the patient has had multiple SBO in the past Sees Dr. Abel Last colonoscopy was in 2019 which just found polyps CRP, IBD labs, ESR, anemia labs Abd xray ordered miralax, Colace and suppository Fluids for hydration Add Zosyn for possible gastroenteritis One time dose of steroids Could be related to IBD GI consulted Small bowel follow through for signs of resolution in a day or so (2) Atrial fibrillation: Qualifiers: Atrial fibrillation type: unspecified Qualified Code(s): I48.91 - Unspecified atrial fibrillation Code(s): I48.91 - Unspecified atrial fibrillation Status: Acute Assessment and Plan: Rate controlled On home metoprolol 12.5mg PO daily Resume home metoprolol when appropiate Consider telemetry Continue to trend heart rate (3) Hypothyroidism: Qualifiers: Hypothyroidism type: acquired Qualified Code(s): E03.9 - Hypothyroidism, unspecified Code(s): E03.9 - Hypothyroidism, unspecified Status: Chronic Assessment and Plan: TSH 0.287, T4 1.22, T3 1.07 Continue levothyroxine when appropriate (4) Hyperlipidemia: Qualifiers: Hyperlipidemia type: unspecified Qualified Code(s): E78.5 - Hyperlipidemia, unspecified Code(s): E78.5 - Hyperlipidemia, unspecified Status: Chronic Assessment and Plan: Hold statin while NPO Restart when appropriate Time Spent With Patient Time: Additional 32 minutes spent with patients for further history, and collaboration with Dr. Sapp to ensure complete workup Time with patient: Greater than 35 minutes Subjective Date/time seen: 04/25/22 11:45 Interval history: 04/25/22 1145 Patient is a 72 year old female with a past medical history of Afib, bowel obstruction, HTN, HLD who presented to the ED with abdominal pain. Patient has been was in the room with her today. he stated that usually she gets these because scar tissue. However the CT of the abdomen and pelvis did show possible inflammatory bowel disease. It was also noted that the patient does have a history of frequent bowel obstructions and recently had 1 in December. she usually sees Dr. Abel who did her last colonoscopy. The patient's stated that GI recommended surgery. patient currently has a little bit of a pain which she describes as colicky pain. It was noted that she had 4 episodes of vomiting with multiple episodes of diarrhea. She stated that she is feeling little better right now. Her pain is a 5/10. She denies any chest pain, shortness of breath, lightheadedness, dizziness, weakness, fatigue. GI has been consulted at this time for further recommendations. Inflammatory labs have been ordered. Review of Systems Review of Systems: All systems reviewed & are unremarkable except as noted in HPI and below Exam Const: General: cooperative, healthy appearing, no acute distress, well developed, alert and awake Nutritional Appearance: well nourished Orientation/consciousness: patient oriented x3 Limitations: no limitations HENMT: Head: normal to inspection Ears: hearing grossly normal bilaterally General nose exam: Normal external nose present Mouth: Yes Normal oral and palatal mucosa present, Yes lip normal and Yes tongue normal Teeth and gingiva: abnormal tooth and associated gingiva and poor dentition Eyes: General: appearance normal, both eyes and all related structures Neck: Neck: normal visual inspection, full ROM, trachea midline and supple Chest: Chest palpation & inspection: normal inspection of the chest Resp: Effort & Inspection: nor
[2022-04-25 12:18] LABS: Total Triiodothyronine (T3) 1.07 NG/ML (0.97-1.69)
[2022-04-25] MEDS: LACTATED RINGERS 1,000 ML 100 ML IV CONT (13:53)
[2022-04-25 14:00] LABS: Iron 65 ug/dL (37-170)
[2022-04-25 14:04] LABS: CRP < 0.5 mg/dL (<1.0)
[2022-04-25 14:08] LABS: Transferrin 245 mg/dL (206-381)
[2022-04-25 14:11] LABS: Erythrocyte Sedimentation Rate 33 mm/hr (0-20); Percent Iron Saturation 19 % (20-50)
[2022-04-25 14:20] VITALS: BP 131/54; PULSE 75; RESP 16; TEMP 36; O2SAT 100
[2022-04-25 15:13] LABS: Folic Acid > 20.0 ng/mL (2.76->20)
[2022-04-25] MEDS: methylPREDNISolone SOD SUCC 125 MG VIAL 80 MG IV PUSH (18:03)
[2022-04-25 22:00] VITALS: BP 124/48; PULSE 76; RESP 14; TEMP 36.2; O2SAT 99
[2022-04-26] MEDS: LACTATED RINGERS 1,000 ML 100 ML IV CONT ×2 (00:08→15:28)
[2022-04-26 06:00] VITALS: BP 109/44; PULSE 83; RESP 16; TEMP 36.1; O2SAT 100
[2022-04-26 06:20] LABS: Hematocrit 38.1 % (37.0-47.0); Immature Granulocyte Absolute 0.02 K/mm3 (0.00-0.031); Immature Granulocyte Percent A 0.3 % (0-0.5); Lymphocytes Percent Auto 8.4 % (18.3-44.2); Mean Corpuscular HGB Conc 31.5 g/dl (32-36); Mean Corpuscular Hemoglobin 30.7 pg (26-34); Mean Corpuscular Volume 97.4 fl (80-100); Monocytes Absolute Auto 0.1 K/mm3 (0.1-0.6); Monocytes Percent Auto 0.8 % (2.6-8.5); Neutrophils Absolute Auto 5.4 K/mm3 (1.3-6.7); Neutrophils Percent Auto 90.5 % (45.5-73.1); Platelet Count Result 217 k/mm3 (150-375); Red Blood Count 3.91 M/mm3 (4.2-5.4); Red Cell Distribution Width 13.8 % (11.5-14.5)
[2022-04-26 06:30] LABS: Alanine Aminotransferase 15 U/L (6-35); Albumin Level 3.7 g/dL (3.5-5.1); Alkaline Phosphatase 73 U/L (38-126); Anion Gap 9 mmol/L (8-16); Aspartate Amino Transferase 21 U/L (14-36); Bilirubin,Total 0.6 mg/dL (0.2-1.3); Blood Urea Nitrogen 16 mg/dL (7-17); Calcium 8.9 mg/dL (8.4-10.2); Carbon Dioxide 26 mmol/L (22-30); Chloride 103 mmol/L (98-107); Estimated CRCL calculation 46 ml/min; Estimated Glomerular Filt Rate > 60; Glucose 161 mg/dL (65-110); Magnesium 2.2 mg/dL (1.6-2.3); Potassium 4.1 mmol/L (3.4-5.0); Sodium 138 mmol/L (137-145)
[2022-04-26 08:00] VITALS: PULSE 83; RESP 16; O2SAT 100
[2022-04-26] MEDS: polyethylene glycoL 3350 17 GM POWD.PACK PO (09:35)
--- NOTE | 2022-04-26 10:15 | PM.IMPN ---
Progress Note: A&P Assessment and Plan (1) Partial small bowel obstruction: Code(s): K56.600 - Partial intestinal obstruction, unspecified as to cause Status: Acute Assessment and Plan: Abd/Pel CT found partial bowel obstruction with abnormal thickening Reported that the patient has had multiple SBO in the past Sees Dr. Abel Last colonoscopy was in 2019 which just found polyps CRP >0.5, IBD labs pending, ESR 33 anemia labs Iron 65, TIBC 344,% saturation 19, transferrin 245, ferritin 22, B12 876 vitamin-D level 115 Abd xray no defined dilated loops of bowel are identified miralax Fluids for hydration Add Zosyn for possible gastroenteritis One time dose of steroids Could be related to IBD GI consulted Small bowel follow through for signs of resolution in a day or so (2) Atrial fibrillation: Qualifiers: Atrial fibrillation type: unspecified Qualified Code(s): I48.91 - Unspecified atrial fibrillation Code(s): I48.91 - Unspecified atrial fibrillation Status: Acute Assessment and Plan: Rate controlled currently 83 On home metoprolol 12.5mg PO daily Can probably restart home metoprolol Consider telemetry Continue to trend heart rate (3) Hypothyroidism: Qualifiers: Hypothyroidism type: acquired Qualified Code(s): E03.9 - Hypothyroidism, unspecified Code(s): E03.9 - Hypothyroidism, unspecified Status: Chronic Assessment and Plan: TSH 0.287, T4 1.22, T3 1.07 Continue levothyroxine when appropriate (4) Hyperlipidemia: Qualifiers: Hyperlipidemia type: unspecified Qualified Code(s): E78.5 - Hyperlipidemia, unspecified Code(s): E78.5 - Hyperlipidemia, unspecified Status: Chronic Assessment and Plan: Can probably continue statin Time Spent With Patient Time: 35 minute spent with the patient and the family talking about plan of care and education about possible disease processes. Time with patient: Greater than 35 minutes Subjective Date/time seen: 04/26/22 1015 Interval history: 04/26/22 1015 Patient stated that she does not have any pain today. Her only complaint is that she is hungry. I did talk to her and we talked about many reasons that could produce bowel obstructions repeatedly or frequently. She did state that she was having colicky pain yesterday however if she had steroids she did feel little better in the pain has went away. She is ready to eat solid food however I am still waiting on GI for further recommendation. If no further recommendations are needed then I will advance her diet. 04/25/22 [id number] Patient is a 72 year old female with a past medical history of Afib, bowel obstruction, HTN, HLD who presented to the ED with abdominal pain. Patient has been was in the room with her today. he stated that usually she gets these because scar tissue. However the CT of the abdomen and pelvis did show possible inflammatory bowel disease. It was also noted that the patient does have a history of frequent bowel obstructions and recently had 1 in December. she usually sees Dr. Abel who did her last colonoscopy. The patient's stated that GI recommended surgery. patient currently has a little bit of a pain which she describes as colicky pain. It was noted that she had 4 episodes of vomiting with multiple episodes of diarrhea. She stated that she is feeling little better right now. Her pain is a 5/10. She denies any chest pain, shortness of breath, lightheadedness, dizziness, weakness, fatigue. GI has been consulted at this time for further recommendations. Inflammatory labs have been ordered. Review of Systems Review of Systems: All systems reviewed & are unremarkable except as noted in HPI and below Exam Const: General: cooperative, comfortable, no acute distress, well developed, alert and awake Nutritional
--- NOTE | 2022-04-26 12:28 | WPDGICN ---
Assessment and Plan Assessment and plan (1) Partial small bowel obstruction: Code(s): K56.600 - Partial intestinal obstruction, unspecified as to cause Status: Acute Assessment and Plan: already feeling better she had previous episodes and always responded to medical treatment on CL diet for now will follow clinical course (2) Atrial fibrillation: Qualifiers: Atrial fibrillation type: unspecified Qualified Code(s): I48.91 - Unspecified atrial fibrillation Code(s): I48.91 - Unspecified atrial fibrillation Status: Acute (3) History of small bowel obstruction: Code(s): Z87.19 - Personal history of other diseases of the digestive system Status: Acute (4) Hypertension: Qualifiers: Hypertension type: essential hypertension Qualified Code(s): I10 - Essential (primary) hypertension Code(s): I10 - Essential (primary) hypertension Status: Acute (5) Abdominal pain: Code(s): R10.9 - Unspecified abdominal pain Status: Acute GI Consult Note Consult date/time: 04/26/22 12:28 Reason for consult: partial SBO HPI: Ritu Gomez is a 72 year old female with past medical history significant for hypothyroidism, hypertension, dyslipidemia, osteopenia, atrial fibrillation, recurrent small-bowel obstruction at least for last 5 years. Last episode earlier this year always treated medically. This time she came with new onset of severe abdominal pain that progressively got worse, initially also had nausea and vomiting but resolved. She has not had BM since admission but now passing gas. CT of abdomen and pelvis reviewed and showed Abnormal thickening of the mid small bowel with moderate distention of the more proximal small bowel containing fecal material and fluid, consistent with at least partial obstruction. Last colonoscopy 2019 During last hospitalization was seeing by surgery. She is doing better with no pain and already on CL diet. She did not need NGT placement. Review of Systems Review of Systems: Abdominal pain, decreased appetite Constitutional: Constitutional: Denies chills, Denies fever(s), Denies malaise, Denies night sweats and Denies weakness Eyes: Eyes: Denies change in vision ENT: Denies dysphagia, Denies vertigo, Denies dizziness and Denies odynophagia Cardiovascular: Cardiovascular: Denies chest pain, Denies syncope, Denies irregular heart rhythm, Denies lightheadedness, Denies palpitations and Denies dyspnea on exertion Respiratory: Respiratory: Denies chest congestion and Denies excessive phlegm production Gastrointestinal: Gastrointestinal: Reports abdominal pain, Denies melena, Reports bloating, Denies coffee ground emesis, Denies dyspepsia, Denies heartburn, Denies nausea and Denies vomiting Genitourinary: Genitourinary: Denies dysuria Musculoskeletal: Musculoskeletal: Denies back pain and Denies joint swelling Integumentary/Breasts: Skin/Breast: Denies rash Neurologic: Denies focal weakness and Denies Sensory deficit (Neuro) Psychiatric: Psychiatric: Reports no additional psychiatric complaints and Reports as per HPI Endocrine: Endocrine: Denies cold intolerance, Denies fatigue, Denies flushing, Denies heat intolerance, Denies polyphagia, Denies polydipsia and Denies palpitations Hematologic/Lymphatic: Hematologic/Lymphatic: Reports no additional hematologic/lymphatic complaints and Reports as per HPI Allergic/Immunologic: Allergic/Immunologic: Reports no additional allergic/immunologic complaints and Reports as per HPI PMFSH Past Medical History Medical History (Updated 04/26/22 @ 12:32 by Preston Perez MD) Abdominal pain Atrial fibrillation Encounter for other screening for malignant neoplasm of breast Hyperlipidemia Hypertension Osteopenia Postmenopausal Prediabetes Surgical History Surgical History H/O section 1983 and 1988
[2022-04-26 14:00] VITALS: BP 117/45; PULSE 89; RESP 20; TEMP 36.3; O2SAT 98
[2022-04-26 20:20] VITALS: O2SAT 99
[2022-04-26 22:00] VITALS: BP 122/68; PULSE 80; RESP 14; TEMP 36.1; O2SAT 99
[2022-04-27] MEDS: LACTATED RINGERS 1,000 ML 100 ML IV CONT (01:38)
[2022-04-27 06:00] VITALS: BP 117/50; PULSE 70; RESP 16; TEMP 36.1; O2SAT 99
[2022-04-27 08:00] VITALS: PULSE 78; RESP 16; O2SAT 98
[2022-04-27] MEDS: polyethylene glycoL 3350 17 GM POWD.PACK PO (08:45)
--- NOTE | 2022-04-27 09:15 | PM.DS ---
DS: Admitting Diagnosis Discharge Date 04/27/2022 0915 Admitting Diagnosis Partial bowel obstruction DS: Discharge Diagnosis Discharge Diagnosis (1) Partial small bowel obstruction: Code(s): K56.600 - Partial intestinal obstruction, unspecified as to cause Status: Acute Assessment and Plan: Abd/Pel CT found partial bowel obstruction with abnormal thickening Reported that the patient has had multiple SBO in the past Sees Dr. Abel Last colonoscopy was in 2019 which just found polyps CRP >0.5, IBD labs pending, ESR 33 anemia labs Iron 65, TIBC 344,% saturation 19, transferrin 245, ferritin 22, B12 876 vitamin-D level 115 Abd xray no defined dilated loops of bowel are identified miralax Fluids for hydration Add Zosyn for possible gastroenteritis One time dose of steroids Could be related to IBD GI consulted Small bowel follow through for signs of resolution in a day or so (2) Atrial fibrillation: Qualifiers: Atrial fibrillation type: unspecified Qualified Code(s): I48.91 - Unspecified atrial fibrillation Code(s): I48.91 - Unspecified atrial fibrillation Status: Acute Assessment and Plan: Rate controlled currently 83 On home metoprolol 12.5mg PO daily Can probably restart home metoprolol Consider telemetry Continue to trend heart rate (3) Hypothyroidism: Qualifiers: Hypothyroidism type: acquired Qualified Code(s): E03.9 - Hypothyroidism, unspecified Code(s): E03.9 - Hypothyroidism, unspecified Status: Chronic Assessment and Plan: TSH 0.287, T4 1.22, T3 1.07 Continue levothyroxine when appropriate (4) Hyperlipidemia: Qualifiers: Hyperlipidemia type: unspecified Qualified Code(s): E78.5 - Hyperlipidemia, unspecified Code(s): E78.5 - Hyperlipidemia, unspecified Status: Chronic Assessment and Plan: Can probably continue statin DS: Summary Hospital Course Hospital Course: Patient is a 72-year-old female with a past medical history of AFib, frequent bowel obstructions, hypertension, hyperlipidemia who presented to the ED with severe abdominal pain. Abdominal CT was performed and showed a partial bowel obstruction with abdominal thickening. GI was consulted for further recommendations. However patient has recovered quite quickly. CT also showed some inflammatory bowel disease however workup is still pending for that but everything is coming back okay right now. patient did receive 1 dose methylprednisolone which did take away her pain which was dull and colicky and light nature. She also denies any chest pain, shortness of breath, nausea vomiting diarrhea constipation. Patient has been also treated with Zosyn due to possible gastroenteritis. White count has been stable as currently 6. Renal function and electrolytes have been within normal limits as well. Patient also does have AFib and metoprolol has been restarted. AFib has been controlled entire visit. Patient's diet has been advanced and she has been able to tolerate a diet with no pain and is very excited due to being very hungry. Patient is currently stable for discharge at this time her labs and vital signs. ESR was slightly elevated. Will have patient follow-up with Dr. Abel at a later time for evaluation of Inflammatory bowel disease. Status at Discharge Functional status at discharge: independent ambulation Overall status at discharge: patient is progressing back to baseline Time Spent with Patient Time attestation: Total time spent providing and/or coordinating discharge services: 36 minutes Time spent: Greater than 30 minutes Specific discharge activities: Diagnostic testing, chart review, developing a treatment plan, education, care coordination documentation, physical exam, result review Exam Const: General: cooperative, healthy appearing, comfortable, no acut
[2022-04-27 09:18] VITALS: O2SAT 98
--- NOTE | 2022-04-27 12:34 | WPDGIPROGNO ---
Progress Note: A&P Assessment and Plan (1) Partial small bowel obstruction: Code(s): K56.600 - Partial intestinal obstruction, unspecified as to cause Status: Acute Assessment and Plan: it seems that resolved tolerating diet and no more nausea this has been a recurrent problem low fiber diet and home today if still feeling ok she can follow-up with Dr Abel (2) Abdominal pain: Code(s): R10.9 - Unspecified abdominal pain Status: Acute Assessment and Plan: resolved Subjective Date/time seen: 04/27/22 12:34 Interval history: no more nausea and overall doing much better, tolerated liquid diet Review of Systems Review of Systems: All systems reviewed & are unremarkable except as noted in HPI and below Exam Const: General: comfortable, no acute distress, well developed, alert and awake Nutritional Appearance: average body habitus Orientation/consciousness: patient oriented x3 HENMT: Head: normal to inspection, normocephalic and atraumatic Ears: hearing grossly normal bilaterally Eyes: General: appearance normal, both eyes and all related structures Pupils: Equal, round and reactive pupils present EOM: EOMs intact bilaterally Neck: Neck: full ROM and no JVD Resp: Effort & Inspection: normal respiratory effort and able to speak in complete sentences Auscultation: clear to auscultation bilaterally Cardio: Jugular venous distension: no JVD Rate: regular rate Rhythm: regular rhythm GI: Inspection: normal to inspection GI Palp: Yes Soft to palpation, No Tenderness to palpation present (GI) and No Rebound tenderness present Auscultation: normal bowel sounds Skin: Rashes: no rashes Wounds: no wounds Neuro: General: patient oriented x3 and CN's II-XI intact bilaterally Cranial nerves: Yes Equal, round and reactive pupils present Cognition (Neuro): normal cognition Speech: normal speech Motor exam (neuro): 5/5 motor strength present throughout Extrem: General: normal to inspection, full ROM and no pedal edema Objective Data Vital Signs Vital Signs: Vital Signs - 24 hr 04/26/22 14:00 04/26/22 22:00 04/26/22 20:20 Temperature 97.4 F L 96.9 F L Pulse Rate 89 80 Respiratory Rate 20 14 Blood Pressure 117/45 L 122/68 Pulse Oximetry 98 99 99 Oxygen Delivery Room Air 04/27/22 06:00 04/27/22 09:18 Temperature 96.9 F L Pulse Rate 70 Respiratory Rate 16 Blood Pressure 117/50 L Pulse Oximetry 99 98 Oxygen Delivery Room Air Intake/Output Intake/Output: Intake & Output 04/24/22 04/25/22 04/26/22 04/27/22 23:59 23:59 23:59 23:59 Intake Total 1000 1050 3840 1580 Output Total 400 400 Balance 1000 1050 3440 1180 Meds/Results Medications: Active Medications Generic Name Dose Route Start Last Admin Trade Name Freq PRN Reason Stop Dose Admin Lactated Ringer's 1,000 mls @ 100 mls/hr 04/25/22 12:20 04/27/22 07:35 Lr - Lactated Ringers Iv IV CONT 100 mls/hr .Q10H [facility] Infusion Piperacillin/Tazobactam/Dextrose 3.375 gm in 50 mls @ 100 mls/hr 04/25/22 13:00 04/27/22 07:06 Zosyn 3.375 Gm/D5w 50ml Pm IVPB Infused Q6H [facility] Infusion Levothyroxine Sodium 75 mcg 04/27/22 10:35 Levothyroxine Sodium 75 Mcg Tablet PO DAILY@0630 [facility] Metoprolol Succinate 12.5 mg 04/27/22 10:35 Metoprolol Succinate Ext Rel 12.5 Mg Tabcr PO DAILY [facility] Ondansetron HCl 4 mg 04/24/22 22:23 Ondansetron Inj 4 Mg/2 Ml Vial IV PUSH Q4H PRN Nausea Polyethylene Glycol 17 gm 04/26/22 09:00 04/27/22 08:45 Polyethylene Glycol 3350 17 Gm Powd.Pack PO 17 gm QAM [facility] Administration Pravastatin Sodium 20 mg 04/27/22 21:00 Pravastatin Sodium 20 Mg Tablet PO HS [facility] Rivastigmine Tartrate 1.5 mg 04/27/22 17:00 Rivastigmine Tartrate 1.5 Mg Capsule PO BIDWM [facility] Radiology Results: ITS Impressions Abdomen/Pelvis CT 04/24/22 21:33 IMPRESSION: 1. Abnormal thickening of the mid small bowel wi
[2022-04-27 14:00] VITALS: BP 120/54; PULSE 92; RESP 16; TEMP 36.4; O2SAT 98
[2022-04-27 14:05] VITALS: PULSE 78
[2022-04-27] MEDS: METOPROLOL SUCCINATE EXT REL 12.5 MG TABCR PO (14:05)
[2022-05-09 16:35] LABS: ANCA Screen Negative (Negative); Myeloperoxidase Ab <1.0 AI (<1.0); Proteinase-3 Ab <1.0 AI (<1.0); S cerevisiae Ab (IgA) 15.4 U (<=20.0); S cerevisiae Ab (IgG) 15.3 U (<=20.0)
--- NOTE | 2022-05-12 11:25 | PC.NURSE ---
Immunology studies are all negative.
== END 2022-04-27 16:00 | disposition home or self-care (01) | DRG 389 ==
LOC: ANHED 23:20 → ANH3MEDSUR 23:52
PROVIDERS: Admitting Provider Internal Medicine; Emergency Provider Emergency Medicine; PCP Family Medicine; Visit Provider Nurse Practitioner
DX: K56.600 Partial intestinal obstruction, unspecified as to cause (principal); E87.1 Hypo-osmolality and hyponatremia; Z20.822 Contact with and (suspected) exposure to COVID-19; E78.5 Hyperlipidemia, unspecified; E87.6 Hypokalemia; E03.9 Hypothyroidism, unspecified; I48.91 Unspecified atrial fibrillation; I10 Essential (primary) hypertension; M85.89 Other specified disorders of bone density and structure, multiple sites; R73.03 Prediabetes; Z87.19 Personal history of other diseases of the digestive system; Z90.49 Acquired absence of other specified parts of digestive tract; Z86.010 Personal history of colon polyps
CPT/HCPCS: 36415; 74018; 74177; 80053; 81001; 82306; 82607; 82728; 82746; 83540; 83550; 83690; 83735; 84439; 84443; 84466; 84480; 85025; 85652; 86036; 86140; 86671; 96361; 96374; 96375; 99285; A9270; C9803; G0378; J2270; J2405; J2543; J2930; J7120; Q9967; U0003; U0005

== ENCOUNTER → 2022-05-26 14:38 | Outpatient (CLI) | payer MEDICARE, SELFPAY ==
--- NOTE | ~2022-05-26 | MM_ITS ---
EXAMINATION: MM screening [facility] BI w radha HISTORY: Screening mammogram, family history of breast cancer in her mother. TECHNIQUE: Craniocaudal and mediolateral oblique 3-D tomosynthesis images were obtained and synthetic 2-D images were generated. CAD analysis was submitted and interpreted. COMPARISON: 09/05/2020, 10/25/2013 BREAST PARENCHYMAL COMPOSITION: The breasts are almost entirely fatty. FINDINGS: There is no suspicious mass, calcification, or architectural distortion to suggest malignan cy in either breast. There has been no suspicious interval change. IMPRESSION: 1. No mammographic evidence of malignancy. 2. Recommend routine screening mammography in one year. BI-RADS Category 1: Negative Reviewed, dictated and finalized at location A.
== END ==
PROVIDERS: PCP Family Medicine; Visit Provider Family Medicine
DX: Z12.31 Encounter for screening mammogram for malignant neoplasm of breast (principal)
CPT/HCPCS: 77063; 77067

== ENCOUNTER 2022-07-05 08:48 | Observation (INO) | payer MEDICARE, SELFPAY ==
[2022-07-05] VITALS (19 sets, daily range): BP systolic 102–143; BP diastolic 47–68; PULSE 47–77; RESP 13–20; TEMP 36.6–37; O2SAT 91–100; BMI 21.2
--- NOTE | ~2022-07-05 | XR_ITS ---
EXAMINATION: XR chest 1V portable 07/05/2022 09:20 INDICATION: Dizziness. Bradycardia. PROCEDURE: AP portable chest COMPARISON: 10/11/2007 FINDINGS: The lungs are clear. The cardiomediastinal silhouette is within normal limits. There are no pleural effusions. There is no pneumothorax suspected. IMPRESSION: 1: NO ACUTE CARDIOPULMONARY DISEASE. Reviewed, dictated and finalized at location A.
--- NOTE | ~2022-07-05 | CT_ITS ---
EXAMINATION: CT BRAIN W/O DATE: 07/05/2022 10:10 INDICATION: Dizziness. TECHNIQUE: Computed tomography (CT) of the head was performed without intravenous contrast. The dose- length product was 605.33 mGy-cm. COMPARISON: No prior studies for comparison. FINDINGS: Mild generalized atrophy.. Normal nuñez-white differentiation. No acute intracranial hemorrh age, infarction, mass or mass effect. No ventriculomegaly or midline shift. Midline sagittal images demonstrate a normal corpus callosum, c raniovertebral junction and sella turcica. Basilar cisterns are patent. Paranasal sinuses and mastoids are pneumatized. No depressed skull fractures. IMPRESSION: 1. No acute intracranial abnormality. Reviewed, dictated and finalized at location A.
--- NOTE | ~2022-07-05 | US_ITS ---
EXAMINATION: US carotid duplex BI DATE: 07/06/2022 11:11 INDICATION: Dizziness. Carotid bruit. TECHNIQUE: Grayscale, color Doppler, and pulsed Doppler images of the cervical carotid arteries were obtained. The degree of vessel stenosis is placed in one of the following categories: normal, <50%, 5 0-69%, >=70% but less than near-occlusion, near-occlusion, or total occlusion. Note that percent sten osis relative to normal distal artery lumen diameter is indirectly measured from velocity measurement s as described by Oziel, et al. Radiology 2003; 229:340-346. Notes: Normal: Peak systolic velocity <125 centimeters/sec and no plaque <50%. Peak systolic velocity <125 ( EDV <40; ICA/CCA PSV ratio <2.0; used these factors only a tandem lesions or low cardiac output or co ntralateral disease) 50-69 %: PSV 125-230 (EDV 40-100; ratio 2-4) >= 70% but less than near occlusion: PSV greater than 230 (EDV > 100; ratio> 4.0) Near Occlusion: PSV that is variable; markedly narrowed lumen Occlusion: Absent flow on color/spectral Doppler and no lumen on nuñez scale. COMPARISON: None. FINDINGS: RIGHT: The right common carotid artery (CCA) peak systolic velocity (PSV) is 77 cm/s. The right internal car otid artery (ICA) PSV is 76 cm/s. The right ICA end-diastolic velocity (EDV) is 22 cm/s. The right IC A/CCA PSV ratio is 1.0. The external carotid artery (ECA) PSV is 79 cm/s. There is antegrade flow in the right vertebral artery. LEFT: The left CCA PSV is 104 cm/s. The left ICA PSV is 65 cm/s. The left ICA EDV is 14 cm/s. The left ICA/ CCA PSV ratio is 0.6. The ECA PSV is 74 cm/s. There is antegrade flow in the left vertebral artery. IMPRESSION: 1. Less than 50% stenosis in the right internal carotid artery by sonographic criteria. 2. Less than 50% stenosis in the left internal carotid artery by sonographic criteria. Reviewed, dictated and finalized at location A. IMPRESSION: 1. Less than 50% stenosis in the right internal carotid artery by sonographic c leonel. 2. Less than 50% stenosis in the left internal carotid artery by sonographic tacos almanza.
--- NOTE | 2022-07-05 08:57 | ECG_ITS ---
Measurements Intervals [place] Rate: 48 P: TN: 0 QRS: -38 QRSD: 91 T: 50 QT: 431 QTc: 387 Interpretive Statements SINUS RHYTHM WITH FIRST-DEGREE AV BLOCK AND NONCONDUCTED PACS MARKED LEFT AXIS DEVIATION [QRS AXIS < -30] POSSIBLE RIGHT VENTRICULAR CONDUCTION DELAY [RSR (QR) IN V1/V2] MINIMAL ST DEPRESSION [0.025+ mV ST DEPRESSION] NO PREVIOUS ECG AVAILABLE FOR COMPARISON Electronically Signed On 07-06-2022 10:07:41 CDT by Kadeem Gamble M.D.
--- NOTE | 2022-07-05 09:07 | ED.GENADULT ---
HPI - General Adult General Chief complaint: Dizziness Stated complaint: dizziness, palpitations Time Seen by Provider: 07/05/22 08:50 Source: RN notes reviewed History of Present Illness HPI narrative: Patient presents emergency department from home for dizziness. Patient states that this morning she began to feel dizzy. States it feels more like a lightheaded sensation and not like the room spinning states that with that she had feeling her heart was not breathing correctly earlier she denies any fevers or chills she denies any vision changes chest pain shortness of breath abdominal pain nausea or vomiting. Patient states that she is followed by Dr. Estrada is they have felt that she had A. fib at 1 point but she had worn a Holter monitor and had no evidence of A. fib she is on metoprolol which she takes at 2:00 in the afternoon and took yesterday Related Data Home Medications Medication Instructions Recorded Confirmed ferrous sulfate 325 mg (65 mg 325 mg PO DAILY 05/01/22 06/09/22 iron) tablet (FeroSul) multivitamin 1 tablet PO DAILY 05/01/22 06/09/22 rivastigmine tartrate 3 mg capsule 3 mg PO BID 05/01/22 06/09/22 Allergies Allergy/AdvReac Type Severity Reaction Status Date / Time No Known Allergies Allergy Unknown Verified 06/09/22 10:52 Review of Systems Review of Systems: Gen.: Denies fevers or chills Eyes: Denies eye pain or visual change ENT: Denies congestion Respiratory: Denies shortness of breath or cough CV: Denies chest pain or palpitations GI: Denies abdominal pain nausea, emesis or diarrhea Musculoskeletal: Denies back pain or muscle pain Neuro: See HPI Skin: Denies rash Except as documented, all other systems reviewed and negative [facility] Past Medical History Medical History Atrial fibrillation Dementia in Alzheimer's disease History of small bowel obstruction Hyperlipidemia Osteopenia Postmenopausal Prediabetes Recurrent intestinal obstruction Vitamin D deficiency Surgical History Surgical History H/O section 1983 and 1988 History of ovarian cystectomy 1980s Hx of appendectomy During one of the sections. Family History Family History Mother Family history of malignant neoplasm of breast in first degree relative Social History Social History Social History: The patient reports that she lives in [place] with her Rodolfo. She wishes to be a full code. She has designated her Rodolfo as her POA. She is a retired childcare provider. Smoking status: Never smoker Second hand tobacco smoke exposure: No Alcohol intake: never Substance use: never Substance use type: does not use Additional living arrangements comments: Gender identity (if verbalized by the patient): Female Sexual Orientation (if Verbalized by the Patient): Straight or Heterosexual Spiritual care concerns: No Agree to blood products: Yes Exam Narrative: APPEARANCE: No acute distress, nontoxic, resting in bed EYES: EOMI, PERRL HEENT: Normocephalic, atraumatic, OMM RESPIRATORY: No respiratory distress Clear to auscultation bilaterally with no rhonchi wheezing or rales. CARDIOVASCULAR: Bradycardic and irregular without murmurs rubs or gallops. ABDOMINAL: Soft, nontender, nondistended, no rebound or guarding MUSCULOSKELETAl: Moves all extremities. No clubbing, cyanosis or edema. NEURO: Awake and alert x 3. Following commands, speech normal, no focal deficits SKIN:: Warm, dry. No rashes lesions or abrasions PSYCHIATRIC: Normal affect/mood, Course Course Emergency Course: Discussed with Dr. Dodd presentation work-up states the patient does have a history of Mobitz type I block was only not in her briefly in the past we discussed consistent block an
[2022-07-05 09:14] LABS: Basophils Percent Auto 0.2 % (0.2-1.2); Eosinophils Percent Auto 0.2 % (0-4.4); Hemoglobin 12.6 g/dL (12.0-15.0); Immature Granulocyte Absolute 0.02 K/mm3 (0.00-0.031); Immature Granulocyte Percent A 0.4 % (0-0.5); Lymphocytes Absolute Auto 1.12 K/mm3 (0.9-3.2); Lymphocytes Percent Auto 20.1 % (18.3-44.2); Mean Corpuscular HGB Conc 33.2 g/dl (32-36); Mean Corpuscular Hemoglobin 31.4 pg (26-34); Mean Corpuscular Volume 94.8 fl (80-100); Mean Platelet Volume 11.6 fl (7.4-10.4); Monocytes Absolute Auto 0.6 K/mm3 (0.1-0.6); Neutrophils Absolute Auto 3.8 K/mm3 (1.3-6.7); Neutrophils Percent Auto 68.1 % (45.5-73.1); Platelet Count Result 255 k/mm3 (150-375); Red Blood Count 4.01 M/mm3 (4.2-5.4); Red Cell Distribution Width 13.4 % (11.5-14.5); White Blood Count 5.6 K/mm3 (4.5-10.0)
[2022-07-05 09:28] LABS: Alanine Aminotransferase 29 U/L (6-35); Albumin Level 4.2 g/dL (3.5-5.1); Alkaline Phosphatase 76 U/L (38-126); Anion Gap 8 mmol/L (8-16); Aspartate Amino Transferase 37 U/L (14-36); Bilirubin,Total 0.4 mg/dL (0.2-1.3); Blood Urea Nitrogen 13 mg/dL (7-17); Calcium 9.4 mg/dL (8.4-10.2); Carbon Dioxide 26 mmol/L (22-30); Chloride 97 mmol/L (98-107); Estimated CRCL calculation 51 ml/min; Estimated Glomerular Filt Rate > 60; Glucose 146 mg/dL (65-110); Lipase 58 U/L (23-300); Magnesium 2.1 mg/dL (1.6-2.3); Potassium 3.5 mmol/L (3.4-5.0); Sodium 131 mmol/L (137-145)
[2022-07-05 09:29] LABS: Prothrombin Time 12.7 Seconds (11.1-14.7)
[2022-07-05 09:30] LABS: Partial Thromboplastin Time 23.6 SECONDS (22.3-36.8)
[2022-07-05 09:39] LABS: Troponin I < 0.012 ng/mL (0.000-0.034)
[2022-07-05 09:57] LABS: Thyroid Stimulating Hormone 0.702 uIU/mL (0.465-4.680)
[2022-07-05 10:20] LABS: SARS-CoV-2 RNA PCR Negative
--- NOTE | 2022-07-05 10:43 | PM.CNCAR ---
Assessment and Plan Assessment and plan (1) Second degree heart block: Code(s): I44.1 - Atrioventricular block, second degree Status: Acute Assessment and Plan: Symptomatic second degree AV block, type I (Wenkebach). Stop Metoprolol Succinate last dose was on 07/04/22 at 2 pm. Monitor on telemetry for resolution of symptoms and heart block. If persistent will keep her for pacemaker implant on Thursday. (2) Premature atrial complexes: Code(s): I49.1 - Atrial premature depolarization Status: Acute (3) Hyperlipidemia: Qualifiers: Hyperlipidemia type: unspecified Qualified Code(s): E78.5 - Hyperlipidemia, unspecified Code(s): E78.5 - Hyperlipidemia, unspecified Status: Chronic Assessment and Plan: On Pravastatin. History of Present Illness History of Present Illness Consult date/time: 07/05/22 10:43 Reason For Visit: Second-degree AV Block type I, dizziness Narrative: 72 yr old woman who is patient of [facility] Reed and my regular cardiology patient presents to ER this morning for dizziness, palpitations and nausea. She has a history of PAC's and intermittent Wenkebach, dyslipidemia, chronic intermittent SBO. Presents with her . Reports in last 2 days she has been having nausea, vague sensation in her head like dizziness, and some feeling of extra beats in her chest. Normally she can walk miles without any problems. Denies chest pain, sob, orthopnea, PND, edema. Cardiovascular Procedures Echo/MUGA:: 07/05/21 Echo: EF 65-70%, diastolic dysfunction (E/e' 10), mild AI/TR. Electrophysiology:: 10/02/21 27 days event monitor: Sinus rhythm, HR range 34-132 bpm; average 67 bpm; HR 34 was at 20:44, 9% PAC's and <1% PVC's, first degree AV block wit intermittent type I second degree AV block and longest pause 2.1 seconds 05/30/21 EKG: Sinus rhythm with PAC's. Review of Systems Review of Systems: All systems reviewed & are unremarkable except as noted in HPI and below Constitutional: Constitutional: Reports as per HPI, Denies chills and Denies fever(s) Cardiovascular: Cardiovascular: Reports as per HPI, Denies chest pain, Reports irregular heart rhythm and Reports lightheadedness Respiratory: Respiratory: Reports as per HPI and Denies dyspnea Gastrointestinal: Gastrointestinal: Reports as per HPI and Reports nausea Genitourinary: Genitourinary: Reports as per HPI and Denies dysuria Musculoskeletal: Musculoskeletal: Reports as per HPI and Reports muscle cramps Neurologic: Reports as per HPI, Reports dizziness and Denies syncope [facility] Past Medical History Medical History Atrial fibrillation Dementia in Alzheimer's disease History of small bowel obstruction Hyperlipidemia Osteopenia Postmenopausal Prediabetes Recurrent intestinal obstruction Vitamin D deficiency Surgical History Surgical History H/O section 1983 and 1988 History of ovarian cystectomy 1980s Hx of appendectomy During one of the sections. Family History Family History Mother Family history of malignant neoplasm of breast in first degree relative Social History Social History Social History: The patient reports that she lives in [place] with her Rodolfo. She wishes to be a full code. She has designated her Rodolfo as her POA. She is a retired childcare provider. Smoking status: Never smoker Second hand tobacco smoke exposure: No Alcohol intake: never Substance use: never Substance use type: does not use Additional living arrangements comments: Gender identity (if verbalized by the patient): Female Sexual Orientation (if Verbalized by the Patient): Straight or Heterosexual Spiritual care concerns: No Agree to blo
--- NOTE | 2022-07-05 11:18 | ADMGEN ---
This patient, Ritu Gomez, was admitted to IMU Room 205-02. Patient/family oriented to hospital policies and general routines including ID bracelet, bed and alarms, visiting hours, pain management, procedures, bathroom and other care routines, personal items, smoking policy, room service/diet, and visiting hours. Information on how to activate the Rapid Response Team has been discussed. Patient/Family are encouraged to report perceived risks to care and to ask questions if they do not understand what they are told or what they should do.
[2022-07-05 12:33] LABS: Troponin I < 0.012 ng/mL (0.000-0.034)
--- NOTE | 2022-07-05 14:45 | PM.IMHP ---
H&P: HPI History of Present Illness Date/Time: 07/05/22 14:45 Chief Complaint: Dizziness. Narrative: This is a 72-year-old female with dementia, hypertension, hypothyroidism, and hyperlipidemia who presented to the emergency department from home for evaluation of dizziness. She and her walk for about 45 minutes each day and on after their walk she was feeling a bit woozy and nauseated. That passed within a short period of time however similar symptoms returned last evening along with sensations of racing heart. This morning just before their walk she once again started to feel dizzy and lightheaded with palpitations and she came in for evaluation. On arrival to the emergency department she was bradycardic in the low 50s and she is being admitted with symptomatic second-degree AV block type 1. She has a history of PACs and intermittent Wenckebach and is followed by Dr. Dodd. At this time he recommends holding her metoprolol and seeing how she does over the weekend. Currently she is resting comfortably and has no complaints. Review of Systems Review of Systems: Twelve systems were reviewed. No syncope. No recent cold or flu symptoms. No chest pain, pleuritic pain, or shortness of breath. She has had some nausea with these episodes but no vomiting. Except as documented, all other systems were reviewed and are negative. [facility] Past Medical History Medical History Dementia in Alzheimer's disease Hyperlipidemia Osteopenia Postmenopausal Prediabetes Premature atrial contractions Recurrent intestinal obstruction Vitamin D deficiency Surgical History Surgical History (Updated 07/05/22 @ 14:42 by Adriana Keyes PA-C) History of 2 sections 1983 and 1988. History of appendectomy History of ovarian cystectomy 1980s Family History Family History Mother Family history of malignant neoplasm of breast in first degree relative Social History Social History Social History: The patient lives in [place] with her . 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 Lifelong nonsmoker. No alcohol or illicit substance abuse. Surrogate medical decision maker: Rodolfo Gomez, spouse. Code status: Full code. Spiritual care concerns: No Agree to blood products: Yes Meds Home Medications and Allergies Home Medications Medication Instructions Recorded Confirmed Type ferrous sulfate 325 mg (65 mg 325 mg PO DAILY 05/01/22 07/05/22 History iron) tablet (FeroSul) multivitamin 1 tablet PO DAILY 05/01/22 07/05/22 History rivastigmine tartrate 3 mg capsule 3 mg PO BID 05/01/22 07/05/22 History levothyroxine 75 mcg tablet 75 mcg PO DAILY #90 tabs 05/12/22 07/05/22 Rx pravastatin 20 mg tablet 20 mg PO HS #90 tabs 06/06/22 07/05/22 Rx Allergies Allergy/AdvReac Type Severity Reaction Status Date / Time No Known Allergies Allergy Unknown Verified 07/07/22 10:02 Vital Signs Vital Signs - 24 hr 07/05/22 08:59 07/05/22 08:57 07/05/22 09:00 Temperature Pulse Rate 53 L 52 L 60 Respiratory Rate 18 16 13 Blood Pressure 123/64 123/64 Pulse Oximetry 100 Oxygen Delivery 07/05/22 09:24 07/05/22 09:30 07/05/22 09:31 Temperature Pulse Rate 58 L 53 L 50 L Respiratory Rate 13 13 20 Blood Pressure 125/49 L 121/66 Pulse Oximetry 100 100 Oxygen Delivery 07/05/22 09:45 07/05/22 09:46 07/05/22 10:00 Temperature Pulse Rate 57 L 53 L 52 L Respiratory Rate 13 15 13 Blood Pressure 112/68 Pulse Oximetry 100 100 Oxygen Delivery 07/05/22 10:15 07/05/22 10:30 07/05/22 12:00 Temperature Pulse Rate 62 62 Respiratory Rate 14 14 Blood Pressure Pulse Oximetry 100 Oxygen Delivery Room Air 07/05/22 12:00 07/05/22 12:00 07/05/22 14:00 Temperature 98.6 F Pulse Rate 64 61 66 Respiratory
[2022-07-05 15:26] LABS: Hemoglobin A1C 6.7 % (<5.7)
[2022-07-05 15:32] LABS: Troponin I < 0.012 ng/mL (0.000-0.034)
[2022-07-05] MEDS: SODIUM CHLORIDE 0.9% IV 1,000 ML 100 ML IV CONT (16:38)
[2022-07-05] MEDS: RIVASTIGMINE TARTRATE 1.5 MG CAPSULE 3 MG PO (16:46)
[2022-07-05] MEDS: MULTIVITAMINS THERAPEUTIC TAB (*BKC) 1 TABLET PO (16:46)
[2022-07-05] MEDS: FERROUS SULFATE 324 MG TABLET PO (16:47)
[2022-07-05] MEDS: PRAVASTATIN SODIUM 20 MG TABLET PO (21:05)
[2022-07-06] VITALS (17 sets, daily range): BP systolic 103–147; BP diastolic 42–64; PULSE 47–94; RESP 14–20; TEMP 36.2–36.9; O2SAT 98–100
[2022-07-06 05:06] LABS: Basophils Percent Auto 0.4 % (0.2-1.2); Eosinophils Absolute Auto 0.1 K/mm3 (0-0.3); Eosinophils Percent Auto 0.9 % (0-4.4); Hematocrit 35.2 % (37.0-47.0); Hemoglobin 11.4 g/dL (12.0-15.0); Immature Granulocyte Absolute 0.01 K/mm3 (0.00-0.031); Immature Granulocyte Percent A 0.2 % (0-0.5); Immature Platelet Fraction Pct 14.9 % (0.9-11.2); Lymphocytes Absolute Auto 1.54 K/mm3 (0.9-3.2); Lymphocytes Percent Auto 28.2 % (18.3-44.2); Mean Corpuscular HGB Conc 32.4 g/dl (32-36); Mean Corpuscular Hemoglobin 31.1 pg (26-34); Mean Corpuscular Volume 96.2 fl (80-100); Monocytes Absolute Auto 0.6 K/mm3 (0.1-0.6); Monocytes Percent Auto 11.2 % (2.6-8.5); Neutrophils Absolute Auto 3.2 K/mm3 (1.3-6.7); Neutrophils Percent Auto 59.1 % (45.5-73.1); Platelet Count Result 195 k/mm3 (150-375); Red Blood Count 3.66 M/mm3 (4.2-5.4); Red Cell Distribution Width 13.5 % (11.5-14.5); White Blood Count 5.5 K/mm3 (4.5-10.0)
[2022-07-06 05:22] LABS: Anion Gap 6 mmol/L (8-16); Blood Urea Nitrogen 12 mg/dL (7-17); Calcium 8.6 mg/dL (8.4-10.2); Carbon Dioxide 28 mmol/L (22-30); Chloride 103 mmol/L (98-107); Estimated CRCL calculation 51 ml/min; Estimated Glomerular Filt Rate > 60; Glucose 118 mg/dL (65-110); Potassium 3.9 mmol/L (3.4-5.0); Sodium 137 mmol/L (137-145)
[2022-07-06] MEDS: LEVOTHYROXINE SODIUM 75 MCG TABLET PO (06:06)
[2022-07-06] MEDS: RIVASTIGMINE TARTRATE 1.5 MG CAPSULE 3 MG PO ×2 (09:05→17:26)
[2022-07-06] MEDS: FERROUS SULFATE 324 MG TABLET PO (09:06)
[2022-07-06] MEDS: MULTIVITAMINS THERAPEUTIC TAB (*BKC) 1 TABLET PO (09:06)
[2022-07-06] MEDS: ENOXAPARIN 40 MG/0.4 ML SYRINGE SUB-Q (09:06)
--- NOTE | 2022-07-06 09:16 | PM.PNCARD ---
Progress Note: A&P Assessment and Plan (1) Second degree heart block: Code(s): I44.1 - Atrioventricular block, second degree Status: Acute Assessment and Plan: Symptomatic second degree AV block, type I (Wenkebach). Stopped Metoprolol Succinate last dose was on 07/04/22 at 2 pm. Monitor on telemetry for resolution of symptoms and heart block.?Was having some intermittent second degree AV block, type I overnight. If persistent will keep her for pacemaker implant on Thursday. (2) Premature atrial complexes: Code(s): I49.1 - Atrial premature depolarization Status: Acute (3) Hyperlipidemia: Qualifiers: Hyperlipidemia type: unspecified Qualified Code(s): E78.5 - Hyperlipidemia, unspecified Code(s): E78.5 - Hyperlipidemia, unspecified Status: Chronic Assessment and Plan: On Pravastatin. Subjective Date/time seen: 07/06/22 09:16 Interval history: Denies anymore dizziness or nausea. No chest pain or sob. Exam Const: General: cooperative, healthy appearing and comfortable Resp: Auscultation: clear to auscultation bilaterally, no crackles, no rales, no rhonchi and no wheezes Cardio: Rate: regular rate Rhythm: regular rhythm Heart sounds: no murmurs Peripheral pulses: dorsalis pedis present GI: GI Palp: No abdominal tenderness and Yes Soft to palpation Neuro: General: oriented to person, oriented to place and oriented to time Extrem: Right lower extremity: no edema Left lower extremity: no edema Objective Data Vital Signs Vital Signs: Vital Signs - 24 hr 07/05/22 09:24 07/05/22 09:30 07/05/22 09:31 Temperature Pulse Rate 58 L 53 L 50 L Respiratory Rate 13 13 20 Blood Pressure 125/49 L 121/66 Pulse Oximetry 100 100 Oxygen Delivery 07/05/22 09:45 07/05/22 09:46 07/05/22 10:00 Temperature Pulse Rate 57 L 53 L 52 L Respiratory Rate 13 15 13 Blood Pressure 112/68 Pulse Oximetry 100 100 Oxygen Delivery 07/05/22 10:15 07/05/22 10:30 07/05/22 12:00 Temperature Pulse Rate 62 62 Respiratory Rate 14 14 Blood Pressure Pulse Oximetry 100 Oxygen Delivery Room Air 07/05/22 12:00 07/05/22 12:00 07/05/22 14:00 Temperature 98.6 F Pulse Rate 64 61 66 Respiratory Rate 16 Blood Pressure 143/60 H Pulse Oximetry 100 Oxygen Delivery 07/05/22 16:00 07/05/22 16:00 07/05/22 16:00 Temperature 98 F Pulse Rate 50 L 58 L Respiratory Rate 16 Blood Pressure 116/55 L Pulse Oximetry 100 Oxygen Delivery Room Air 07/05/22 18:00 07/05/22 20:00 07/05/22 20:00 Temperature 98.1 F Pulse Rate 69 77 Respiratory Rate 20 Blood Pressure 126/47 L 117/55 L Pulse Oximetry 91 Oxygen Delivery 07/05/22 20:01 07/05/22 23:14 07/05/22 20:00 Temperature 97.8 F Pulse Rate 58 L 75 Respiratory Rate 18 Blood Pressure 120/52 L 102/58 L Pulse Oximetry 100 Oxygen Delivery 07/05/22 20:00 07/05/22 22:00 07/06/22 00:00 Temperature Pulse Rate 47 L 94 Respiratory Rate Blood Pressure Pulse Oximetry Oxygen Delivery Room Air 07/06/22 02:00 07/06/22 00:00 07/06/22 03:41 Temperature 97.7 F Pulse Rate 57 L 71 Respiratory Rate 18 Blood Pressure 120/55 L Pulse Oximetry 99 Oxygen Delivery Room Air 07/06/22 04:00 07/06/22 04:00 07/06/22 06:00 Temperature Pulse Rate 47 L 65 Respiratory Rate Blood Pressure Pulse Oximetry Oxygen Delivery Room Air Intake/Output Intake/Output: Intake & Output 07/03/22 07/04/22 07/05/22 07/06/22 23:59 23:59 23:59 23:59 Intake Total 1780 1000 Output Total 2150 Balance -370 1000 Meds/Results Medications: Active Medications Generic Name Dose Route Start Last Admin Trade Name Freq PRN Reason Stop Dose Admin Enoxaparin Sodium 40 mg 07/06/22 09:00 07/06/22 09:06 Enoxaparin 40 Mg/0.4 Ml Syringe SUB-Q 40 mg DAILY ASHLEY Administration Ferrous Sulfate 324 mg 07/05/22 1
--- NOTE | 2022-07-06 11:48 | PM.IMPN ---
Progress Note: A&P Assessment and Plan (1) Second degree heart block: Code(s): I44.1 - Atrioventricular block, second degree Status: Acute Assessment and Plan: Await plan from Cardiology. Metoprolol on hold. (2) Premature atrial complexes: Code(s): I49.1 - Atrial premature depolarization Status: Acute (3) Hyperlipidemia: Qualifiers: Hyperlipidemia type: unspecified Qualified Code(s): E78.5 - Hyperlipidemia, unspecified Code(s): E78.5 - Hyperlipidemia, unspecified Status: Chronic (4) Hypothyroidism: Qualifiers: Hypothyroidism type: acquired Qualified Code(s): E03.9 - Hypothyroidism, unspecified Code(s): E03.9 - Hypothyroidism, unspecified Status: Chronic (5) Dementia in Alzheimer's disease: Code(s): G30.9 - Alzheimer's disease, unspecified; F02.80 - Dementia in other diseases classified elsewhere, unspecified severity, without behavioral disturbance, psychotic disturbance, mood disturbance, and anxiety Status: Acute (6) Prediabetes: Code(s): R73.03 - Prediabetes Status: Chronic (7) Hyponatremia: Code(s): E87.1 - Hypo-osmolality and hyponatremia Status: Acute Subjective Date/time seen: 07/06/22 11:48 Heart rate 119 70s and 80s this morning. She did have some low heart rates in the overnight. Exam Narrative: General: Well-developed female sitting up in bed in no distress. Weight: 59.8 kilograms. BMI: 21.9. HEENT: PERRL, EOMI. Sclera anicteric. Oral mucosa moist. Oropharynx clear. Neck: Supple. Faint bruits versus possible radiation of cardiac murmur. Respiratory: Lungs are clear to auscultation bilaterally. Cardiovascular: Bradycardic with S1-S2. Murmur heard at the upper sternal border. Gastrointestinal: Abdomen is soft, nontender, and nondistended with positive bowel sounds. Skin: Warm and dry. No rash or lesions on limited exam. Extremities: No cyanosis, clubbing, or edema. Radial and pedal pulses intact. Neurological: Alert. Cranial nerves 2-12 are grossly intact. No gross focal deficits to casual conversation. Psychiatric: Pleasant and cooperative with normal mood and affect. Evidence of short-term memory loss. Objective Data Vital Signs Vital Signs: Vital Signs - 24 hr 07/05/22 12:00 07/05/22 12:00 07/05/22 12:00 Temperature 98.6 F Pulse Rate 64 61 Respiratory Rate 16 Blood Pressure 143/60 H Pulse Oximetry 100 Oxygen Delivery Room Air 07/05/22 14:00 07/05/22 16:00 07/05/22 16:00 Temperature 98 F Pulse Rate 66 50 L Respiratory Rate 16 Blood Pressure 116/55 L Pulse Oximetry 100 Oxygen Delivery Room Air 07/05/22 16:00 07/05/22 18:00 07/05/22 20:00 Temperature 98.1 F Pulse Rate 58 L 69 77 Respiratory Rate 20 Blood Pressure 126/47 L Pulse Oximetry 91 Oxygen Delivery 07/05/22 20:00 07/05/22 20:01 07/05/22 23:14 Temperature 97.8 F Pulse Rate 58 L Respiratory Rate 18 Blood Pressure 117/55 L 120/52 L 102/58 L Pulse Oximetry 100 Oxygen Delivery 07/05/22 20:00 07/05/22 20:00 07/05/22 22:00 Temperature Pulse Rate 75 47 L Respiratory Rate Blood Pressure Pulse Oximetry Oxygen Delivery Room Air 07/06/22 00:00 07/06/22 02:00 07/06/22 00:00 Temperature Pulse Rate 94 57 L Respiratory Rate Blood Pressure Pulse Oximetry Oxygen Delivery Room Air 07/06/22 03:41 07/06/22 04:00 07/06/22 04:00 Temperature 97.7 F Pulse Rate 71 47 L Respiratory Rate 18 Blood Pressure 120/55 L Pulse Oximetry 99 Oxygen Delivery Room Air 07/06/22 06:00 07/06/22 08:00 07/06/22 08:00 Temperature 97.2 F L Pulse Rate 65 68 72 Respiratory Rate 16 Blood Pressure 120/48 L Pulse Oximetry 100 Oxygen Delivery 07/06/22 10:00 Temperature Pulse Rate 76 Respiratory Rate Blood Pressure Pulse Oximetry Oxygen Delivery Intake/Output Intake/Output: Intake &
[2022-07-06] MEDS: PRAVASTATIN SODIUM 20 MG TABLET PO (21:56)
[2022-07-07] VITALS (9 sets, daily range): BP systolic 113–133; BP diastolic 55–71; PULSE 60–104; RESP 16–20; TEMP 36.2; O2SAT 98–99
--- NOTE | 2022-07-07 00:37 | ECHO_ITS ---
Patient Info Name: Ritu Gomez Age: 72 years : 1950 Gender: Female Ht: 65 in Wt: 131 lbs BSA: 1.65 m2 HR: 68 bpm BP: 133 / 71 mmHg Heart Rhythm: Sinus Rhythm Technical Quality: Fair Exam Date: 07/07/2022 9:10 AM Exam Location: [facility] Pulmonary Patient Status: Outpatient Admit Date: 07/05/2022 Staff Ordering Physician: Adriana Keyes PA-C Dairy Equipment Specialist: Bertha Moeller RDCS Attending Provider: Kadeem Edward MD Referring Physician: Stephy HYATT; Exam Type: CA echo doppler color flow Study Info Indications - BRADYCARDIA, MURMUR Complete two-dimensional, color flow and Doppler transthoracic echocardiogram is performed. Summary 1. Complete two-dimensional, color flow and Doppler transthoracic echocardiogram is performed. 2. Left ventricular chamber dimension is normal. 3. Ventricular septum is sigmoid shaped. No LVOT obstruction. 4. Left ventricular systolic function is normal, estimated at 65-70%. 5. The left ventricular diastolic function is abnormal. 6. E/e' 10 is mildly elevated. 7. There is mild aortic valve sclerosis. 8. There is mild aortic valve regurgitation. 9. There is trace tricuspid valve regurgitation. 10. No pulmonary hypertension, estimated pulmonary arterial systolic pressure is 26 mmHg. Left Ventricle Ventricular septum is sigmoid shaped. No LVOT obstruction. E/e' 10 is mildly elevated. Left ventricular chamber dimension is normal. Left ventricular systolic function is normal, estimated at 65-70%. The left ventricular diastolic function is abnormal. Right Ventricle Right ventricular chamber dimension is normal. Right ventricular systolic function is normal. Left Atria Left atrial chamber dimension is normal. Right Atria Right atrial chamber dimension is normal. Aortic Valve The aortic valve is trileaflet. There is mild aortic valve sclerosis. There is no aortic valve stenosis. There is mild aortic valve regurgitation. Pulmonic Valve There is no pulmonic regurgitation. Mitral Valve There is no mitral valve stenosis. There is no mitral valve regurgitation. Tricuspid Valve There is trace tricuspid valve regurgitation. No pulmonary hypertension, estimated pulmonary arterial systolic pressure is 26 mmHg. Pericardium/Pleural There is no pericardial effusion. Inferior Vena Cava Normal inferior vena cava with >50% collapse upon inspiration consistent with normal right atrial pressure, 5 mmHg. Aorta The aortic root size at the sinus of Valsalva is normal. Left Ventricular Outflow Tract Name Value Normal LVOT 2D LVOT Diameter 2.0 cm LVOT Doppler LVOT Peak Gradient 6 mmHg LVOT Mean Gradient 2 mmHg LVOT VTI 22 cm LVOT VTI/AV VTI Ratio 0.7 LVOT Stroke Volume 68 ml LVOT CO 4.9 l/min LVOT CI 3.0 l/min/m2 Pulmonic Valve Name
[2022-07-07] MEDS: LEVOTHYROXINE SODIUM 75 MCG TABLET PO (06:04)
--- NOTE | 2022-07-07 07:05 | ECG_ITS ---
Measurements Intervals [place] Rate: 83 P: 73 VA: 252 QRS: -46 QRSD: 79 T: 81 QT: 366 QTc: 431 Interpretive Statements SINUS RHYTHM WITH FIRST DEGREE AV BLOCK LEFT ANTERIOR FASCICULAR BLOCK [QRS AXIS <= -45, QR IN I, RS IN II] NONSPECIFIC T-WAVE ABNORMALITY COMPARED TO ECG 07/05/2022 09:05:03 THE T-WAVE CHANGES HAVE IMPROVED AND NONCONDUCTED APCS ARE NOT PRESENT Electronically Signed On 07-08-2022 13:04:33 CDT by Rody Denis M.D.
--- NOTE | 2022-07-07 08:00 | PM.PNCARD ---
Progress Note: A&P Assessment and Plan (1) Second degree heart block: Code(s): I44.1 - Atrioventricular block, second degree Status: Acute Assessment and Plan: Symptomatic second degree AV block, type I (Wenkebach). Stopped Metoprolol Succinate last dose was on 07/04/22 at 2 pm. Monitor on telemetry for resolution of symptoms and heart block.?Was having some asymptomatic intermittent second degree AV block, type I and non-conducted PAC's over last 24 hours. Echo to be done today. Will have my office place 30 day event monitor, then she can go home and f/u with me in 1 month after event monitor completed. Leave her off Metoprolol. (2) Premature atrial complexes: Code(s): I49.1 - Atrial premature depolarization Status: Acute (3) Hyperlipidemia: Qualifiers: Hyperlipidemia type: unspecified Qualified Code(s): E78.5 - Hyperlipidemia, unspecified Code(s): E78.5 - Hyperlipidemia, unspecified Status: Chronic Assessment and Plan: On Pravastatin. Subjective Date/time seen: 07/07/22 08:00 Interval history: Denies anymore dizziness or nausea. No chest pain or sob. Exam Const: General: cooperative, healthy appearing and comfortable Resp: Auscultation: clear to auscultation bilaterally, no crackles, no rales, no rhonchi and no wheezes Cardio: Rate: regular rate Rhythm: regular rhythm Heart sounds: no murmurs Peripheral pulses: dorsalis pedis present GI: GI Palp: No abdominal tenderness and Yes Soft to palpation Neuro: General: oriented to person, oriented to place and oriented to time Extrem: Right lower extremity: no edema Left lower extremity: no edema Objective Data Vital Signs Vital Signs: Vital Signs - 24 hr 07/06/22 10:00 07/06/22 12:00 07/06/22 14:00 Temperature Pulse Rate 76 76 62 Respiratory Rate Blood Pressure Pulse Oximetry Oxygen Delivery 07/06/22 12:00 07/06/22 12:00 07/06/22 12:02 Temperature 97.7 F Pulse Rate 88 Respiratory Rate 20 Blood Pressure 117/42 L 117/42 L 103/51 L Pulse Oximetry Oxygen Delivery 07/06/22 12:04 07/06/22 16:00 07/06/22 16:00 Temperature Pulse Rate 64 Respiratory Rate Blood Pressure 106/49 L Pulse Oximetry Oxygen Delivery Room Air 07/06/22 16:00 07/06/22 18:00 07/06/22 19:56 Temperature 97.7 F 98.4 F Pulse Rate 60 82 71 Respiratory Rate 16 14 Blood Pressure 142/64 H 147/55 H Pulse Oximetry 100 100 Oxygen Delivery 07/06/22 20:00 07/06/22 20:00 07/06/22 20:00 Temperature 98.4 F Pulse Rate 71 71 92 Respiratory Rate 14 14 Blood Pressure 147/55 H Pulse Oximetry 100 100 Oxygen Delivery Room Air 07/06/22 22:00 07/06/22 23:32 07/07/22 00:00 Temperature 98.2 F Pulse Rate 62 60 60 Respiratory Rate 16 Blood Pressure 122/61 Pulse Oximetry 98 Oxygen Delivery 07/07/22 00:00 07/07/22 02:00 07/07/22 04:00 Temperature Pulse Rate 60 62 62 Respiratory Rate 16 Blood Pressure Pulse Oximetry 98 Oxygen Delivery Room Air 07/07/22 04:00 07/07/22 04:40 07/07/22 06:00 Temperature 97.2 F L Pulse Rate 62 63 68 Respiratory Rate 16 16 Blood Pressure 133/71 Pulse Oximetry 98 99 Oxygen Delivery Room Air Intake/Output Intake/Output: Intake & Output 07/04/22 07/05/22 07/06/22 07/07/22 23:59 23:59 23:59 23:59 Intake Total 1780 2320 Output Total 2150 1200 Balance -370 1120 Meds/Results Medications: Active Medications Generic Name Dose Route Start Last Admin Trade Name Elijah PRN Reason Stop Dose Admin Enoxaparin Sodium 40 mg 07/06/22 09:00 07/06/22 09:06 Enoxaparin 40 Mg/0.4 Ml Syringe SUB-Q 40 mg DAILY ASHLEY Administration Ferrous Sulfate 324 mg 07/05/22 17:00 07/06/22 09:06 Ferrous Sulfate 324 Mg Tablet PO 324 mg DAILY ASHLEY Administration Levothyroxine Sodium 75 mcg 07/06/22 06:30 07/07/22 06:04 Levothyroxine Sodium 75 Mcg Tablet PO 7
[2022-07-07] MEDS: FERROUS SULFATE 324 MG TABLET PO (09:32)
[2022-07-07] MEDS: RIVASTIGMINE TARTRATE 1.5 MG CAPSULE 3 MG PO (09:32)
[2022-07-07] MEDS: MULTIVITAMINS THERAPEUTIC TAB (*BKC) 1 TABLET PO (09:32)
[2022-07-07] MEDS: ENOXAPARIN 40 MG/0.4 ML SYRINGE SUB-Q (09:32)
--- NOTE | 2022-07-07 10:27 | PM.DS ---
DS: Admitting Diagnosis Discharge Date July 07, 2022 Admitting Diagnosis bradycardia, DS: Discharge Diagnosis Discharge Diagnosis (1) Second degree heart block: Code(s): I44.1 - Atrioventricular block, second degree Status: Acute Assessment and Plan: Await plan from Cardiology. Metoprolol on hold. 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 Metoprolol was held and she did improve somewhat. Still having intermittent bradycardia. Dr. Rubio cardiology saw the patient recommended 30 day Holter and patient can be discharged. Otherwise patient is relatively asymptomatic she can be discharged Time Spent with Patient Time attestation: Total time spent providing and/or coordinating discharge services: Exam Narrative: General: Well-developed female sitting up in bed in no distress. Weight: 59.8 kilograms. BMI: 21.9. HEENT: PERRL, EOMI. Sclera anicteric. Oral mucosa moist. Oropharynx clear. Neck: Supple. Faint bruits versus possible radiation of cardiac murmur. Respiratory: Lungs are clear to auscultation bilaterally. Cardiovascular: Bradycardic with S1-S2. Murmur heard at the upper sternal border. Gastrointestinal: Abdomen is soft, nontender, and nondistended with positive bowel sounds. Skin: Warm and dry. No rash or lesions on limited exam. Extremities: No cyanosis, clubbing, or edema. Radial and pedal pulses intact. Neurological: Alert. Cranial nerves 2-12 are grossly intact. No gross focal deficits to casual conversation. Psychiatric: Pleasant and cooperative with normal mood and affect. Evidence of short-term memory loss. Discharge Plan Discharge Attending physician on discharge: Kadeem Edward Consulting providers: Marco A Dodd Discharging Clinician: Kadeem Edward Patient Disposition: Home, Self-Care Activity: no preference Diet: as tolerated Patient Instructions: Antibiotic Form, Heart Block (DC) Stand Alone Forms: General Discharge Information Follow-up/Referrals: Marco A Dodd, [Physician] - Discharge Medications: Continued rivastigmine tartrate 3 mg capsule 3 mg PO BID Rx Instructions: give with meals multivitamin Tablet 1 tablet PO DAILY ferrous sulfate [FeroSul] 325 mg (65 mg iron) tablet 325 mg PO DAILY levothyroxine 75 mcg tablet 75 mcg PO DAILY Qty: 90 1RF pravastatin 20 mg tablet 20 mg PO HS Qty: 90 1RF Discontinued metoprolol succinate 25 mg tablet extended release 24 hr 12.5 mg PO DAILY Qty: 90 1RF Date of admission: 07/05/22 10:01 Primary Care Provider: German Simmons Admitting Provider: Kadeem Edward Attending physician on admission: Kadeem Edward Condition: Guarded Prognosis
== END 2022-07-07 13:16 | disposition home or self-care (01) ==
LOC: ANHED 10:44 → ANHIMU 10:46
PROVIDERS: Physician Assistant; Admitting Provider Chiropractor; Emergency Provider Emergency Medicine; PCP Family Medicine; Visit Provider Chiropractor
DX: I44.1 Atrioventricular block, second degree (principal); I49.1 Atrial premature depolarization; E78.5 Hyperlipidemia, unspecified; E03.9 Hypothyroidism, unspecified; G30.9 Alzheimer's disease, unspecified; F02.80 Dementia in other diseases classified elsewhere, unspecified severity, without behavioral disturbance, psychotic disturbance, mood disturbance, and anxiety; R73.03 Prediabetes; E87.1 Hypo-osmolality and hyponatremia; M85.80 Other specified disorders of bone density and structure, unspecified site; E55.9 Vitamin D deficiency, unspecified; I51.89 Other ill-defined heart diseases; I35.1 Nonrheumatic aortic (valve) insufficiency; I35.8 Other nonrheumatic aortic valve disorders; Z20.822 Contact with and (suspected) exposure to COVID-19; Z79.899 Other long term (current) drug therapy
CPT/HCPCS: 36415; 70450; 71045; 80048; 80053; 83036; 83690; 83735; 84443; 84484; 85025; 85055; 85610; 85730; 93005; 93306; 93880; 96360; 96361; 96372; 99285; A9270; C9803; G0378; J1650; J7030; U0003; U0005

== ENCOUNTER 2022-08-08 08:04 | Outpatient (CLI) | payer MEDICARE, SELFPAY ==
[2022-08-08 18:24] LABS: Alanine Aminotransferase 17 U/L (6-35); Albumin Level 3.9 g/dL (3.5-5.1); Alkaline Phosphatase 66 U/L (38-126); Anion Gap 10 mmol/L (8-16); Aspartate Amino Transferase 23 U/L (14-36); Bilirubin,Total 0.4 mg/dL (0.2-1.3); Blood Urea Nitrogen 11 mg/dL (7-17); Calcium 9.5 mg/dL (8.4-10.2); Carbon Dioxide 28 mmol/L (22-30); Chloride 103 mmol/L (98-107); Estimated Glomerular Filt Rate > 60; Glucose 120 mg/dL (65-110); Potassium 4.1 mmol/L (3.4-5.0); Sodium 141 mmol/L (137-145)
[2022-08-08 18:25] LABS: Cholesterol 157 mg/dL (0-200); HDL Direct 63 mg/dL; Triglycerides 75 mg/dL (<150)
[2022-08-08 18:35] LABS: LDL Cholesterol Direct 64 mg/dL
[2022-08-08 18:37] LABS: Vitamin D 25 Hydroxy 82.7 ng/mL
[2022-08-08 18:39] LABS: Hemoglobin A1C 6.2 % (<5.7)
[2022-08-08 18:42] LABS: Basophils Percent Auto 0.6 % (0.2-1.2); Eosinophils Absolute Auto 0.1 K/mm3 (0-0.3); Eosinophils Percent Auto 2.2 % (0-4.4); Hematocrit 38.8 % (37.0-47.0); Immature Granulocyte Absolute 0.01 K/mm3 (0.00-0.031); Immature Granulocyte Percent A 0.3 % (0-0.5); Lymphocytes Absolute Auto 1.02 K/mm3 (0.9-3.2); Lymphocytes Percent Auto 31.4 % (18.3-44.2); Mean Corpuscular HGB Conc 30.9 g/dl (32-36); Mean Corpuscular Hemoglobin 31.3 pg (26-34); Mean Corpuscular Volume 101.3 fl (80-100); Monocytes Absolute Auto 0.3 K/mm3 (0.1-0.6); Monocytes Percent Auto 9.2 % (2.6-8.5); Neutrophils Absolute Auto 1.8 K/mm3 (1.3-6.7); Neutrophils Percent Auto 56.3 % (45.5-73.1); Platelet Count Result 266 k/mm3 (150-375); Red Blood Count 3.83 M/mm3 (4.2-5.4); White Blood Count 3.3 K/mm3 (4.5-10.0)
[2022-08-08 19:16] LABS: Creatinine Urine 53.3 mg/dL
[2022-08-08 19:25] LABS: MALB Creatinine Ratio 28.9 mg/g (0-30); Microalbumin Urine Random 15.4 mg/L (0-16.7)
== END 2022-08-08 08:05 | disposition home or self-care (01) ==
LOC: ANHGOSHLAB 08:08
PROVIDERS: Internal Medicine Cardiovascular Disease; PCP Family Medicine; Visit Provider Family Medicine
DX: E11.9 Type 2 diabetes mellitus without complications (principal); E78.5 Hyperlipidemia, unspecified; I10 Essential (primary) hypertension; E55.9 Vitamin D deficiency, unspecified
CPT/HCPCS: 36415; 80053; 80061; 82043; 82306; 83036; 85025

== ENCOUNTER 2022-08-15 16:01 | Inpatient (IN) | payer MEDICARE, SELFPAY ==
--- NOTE | 2022-08-15 16:11 | ADMGEN ---
This patient, Ritu Gomez, was admitted to IMU Room 209-01. Patient/family oriented to hospital policies and general routines including ID bracelet, bed and alarms, visiting hours, pain management, procedures, bathroom and other care routines, personal items, smoking policy, room service/diet, and visiting hours. Information on how to activate the Rapid Response Team has been discussed. Patient/Family are encouraged to report perceived risks to care and to ask questions if they do not understand what they are told or what they should do.
--- NOTE | 2022-08-15 16:32 | PM.IMHP ---
H&P: HPI History of Present Illness Date/Time: 08/15/22 16:32 Chief Complaint: Palpitations Narrative: 72 yr old woman who is a patient of [facility] presents to hospital for a direct admission for Sotalol loading for paroxysmal atrial flutter. She has a history of PSVT, paroxysmal atrial flutter, pauses,? PAC's, dyslipidemia, chronic intermittent SBO. Presents with her . She can walk miles without any problems. She feels occasional palpitations. Denies chest pain, sob, palpitations, orthopnea, PND, edema, dizziness. Cardiovascular Procedures Echo/MUGA:: 07/05/22 Echo: EF 65-70%, diastolic dysfunction (E/e' 10), mild AI, trace TR. 07/05/21 Echo: EF 65-70%, diastolic dysfunction (E/e' 10), mild AI/TR. Electrophysiology:: 07/05/22 EKG: Sinus rhythm with first degree AV block and nonconducted PAC. 08/08/22 28 days event monitor: Sinus rhythm, HR range 34-182 bpm; average 75 bpm; 34 bpm was at 04:09 due to nonconducted PAC; 182 bpm was due to SVT; 2% PAC's, 1 SVT at 182 bpm on 08/04/22 at 09:20; there are 645 episodes of atrial flutter with HR range 38-182 bpm with a burden of 22%; the longest lasted 4 hours and 12 minutes and fastest at 182 bpm.<1% PVC; 41 episodes of second degree AV block type I with slowest HR 41 bpm, 17 episodes of pauses greater than 2 seconds and longest is 2.8 seconds on 07/10/22 at 22:31 during atrial flutter at 36 bpm. 10/02/21 27 days event monitor: Sinus rhythm, HR range 34-132 bpm; average 67 bpm; HR 34 was at 20:44, 9% PAC's and <1% PVC's, first degree AV block wit intermittent type I second degree AV block and longest pause 2.1 seconds 05/30/21 EKG: Sinus rhythm with PAC's. Stress Tests:: 07/05/22 Carotid duplex:<50% bilateral ICA. Review of Systems Review of Systems: All systems reviewed & are unremarkable except as noted in HPI and below Constitutional: Constitutional: Reports as per HPI, Denies chills and Denies fever(s) Cardiovascular: Cardiovascular: Reports as per HPI, Denies chest pain, Reports irregular heart rhythm, Denies leg edema and Denies lightheadedness Respiratory: Respiratory: Reports as per HPI and Reports dyspnea on exertion Gastrointestinal: Gastrointestinal: Reports as per HPI and Denies abdominal pain Genitourinary: Genitourinary: Reports as per HPI and Denies dysuria Musculoskeletal: Musculoskeletal: Reports as per HPI Neurologic: Reports as per HPI, Denies dizziness and Denies syncope [facility] Past Medical History Medical History Dementia in Alzheimer's disease Heart murmur Hyperlipidemia Osteopenia Postmenopausal Premature atrial contractions Recurrent intestinal obstruction Type 2 diabetes mellitus without complications Vitamin D deficiency Surgical History Surgical History History of 2 sections 1983 and 1988. History of appendectomy History of ovarian cystectomy 1980s Family History Family History Mother Family history of malignant neoplasm of breast in first degree relative Social History Social History Social History: The patient lives in [place] with her . 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 Lifelong nonsmoker. No alcohol or illicit substance abuse. Surrogate medical decision maker: Rodolfo Patricia, spouse. Code status: Full code. Smoking status: Never smoker Alcohol intake: never Substance use: never Lack of Transportation: No Lack of Food: Never True Current Housing: I Have Housing Concerned About Future Housing: No Difficulty Paying Gas/Electric Bills: No Difficulty Paying for Meds: No Currently Unemployed: No Education: High School Diploma/GED Difficulty w/ Childcare or Family Care: No Spiritual care concerns: No Agree to blood products: Yes Meds Home Medications and Allergies H
[2022-08-15 16:40] VITALS: BP 131/58; PULSE 73; RESP 16; TEMP 36.4; O2SAT 100
--- NOTE | 2022-08-15 16:42 | ECG_ITS ---
Measurements Intervals [place] Rate: 73 P: 60 [place]: 298 QRS: -42 QRSD: 86 T: 51 QT: 372 QTc: 412 Interpretive Statements SINUS RHYTHM WITH FIRST DEGREE AV BLOCK LEFT AXIS DEVIATION RSR' IN V1 OR V2, PROBABLY NORMAL VARIANT ABNORMAL ECG COMPARED TO ECG 07/07/2022 09:47:23 LEFT-AXIS DEVIATION NOW PRESENT Electronically Signed On 08-15-2022 20:47:50 DRIVER LICENSE REVIEWING OFFICER by Marco A Dodd D.O.
[2022-08-15 18:51] VITALS: BMI 22.1
[2022-08-15 20:00] VITALS: BP 115/49; PULSE 74; PULSE 77; RESP 16; TEMP 36.8; O2SAT 100
[2022-08-15 21:02] VITALS: PULSE 74
[2022-08-15] MEDS: SOTALOL HCL 80 MG TABLET PO (21:02)
[2022-08-15] MEDS: PRAVASTATIN SODIUM 20 MG TABLET PO (21:03)
[2022-08-15] MEDS: RIVASTIGMINE TARTRATE 1.5 MG CAPSULE 6 MG PO (21:04)
[2022-08-15 22:00] VITALS: PULSE 62
--- NOTE | 2022-08-15 23:05 | ECG_ITS ---
Measurements Intervals [place] Rate: 62 P: 57 [place]: 325 QRS: -49 QRSD: 85 T: 37 QT: 432 QTc: 439 Interpretive Statements SINUS RHYTHM WITH FIRST DEGREE AV BLOCK LEFT ANTERIOR FASCICULAR BLOCK ABNORMAL ECG COMPARED TO ECG 08/15/2022 16:54:13 LEFT ANTERIOR FASCICULAR BLOCK NOW PRESENT Electronically Signed On 08-16-2022 7:55:55 COMPUTERIZED TABLE CUTTER by Marco A Dodd D.O.
[2022-08-16] VITALS (18 sets, daily range): BP systolic 105–143; BP diastolic 44–64; PULSE 55–75; RESP 16–18; TEMP 36.4–36.9; O2SAT 97–100
[2022-08-16 04:44] LABS: Hematocrit 34.2 % (37.0-47.0); Hemoglobin 11.2 g/dL (12.0-15.0); Mean Corpuscular HGB Conc 32.7 g/dl (32-36); Mean Corpuscular Hemoglobin 30.7 pg (26-34); Mean Corpuscular Volume 93.7 fl (80-100); Mean Platelet Volume 11.3 fl (7.4-10.4); Platelet Count Result 258 k/mm3 (150-375); Red Blood Count 3.65 M/mm3 (4.2-5.4); Red Cell Distribution Width 13.4 % (11.5-14.5); White Blood Count 5.1 K/mm3 (4.5-10.0)
[2022-08-16 04:55] LABS: Alanine Aminotransferase 17 U/L (6-35); Albumin Level 3.6 g/dL (3.5-5.1); Alkaline Phosphatase 58 U/L (38-126); Anion Gap 9 mmol/L (8-16); Aspartate Amino Transferase 25 U/L (14-36); Bilirubin,Total 0.5 mg/dL (0.2-1.3); Blood Urea Nitrogen 14 mg/dL (7-17); Calcium 9.1 mg/dL (8.4-10.2); Carbon Dioxide 29 mmol/L (22-30); Chloride 104 mmol/L (98-107); Estimated CRCL calculation 51 ml/min; Estimated Glomerular Filt Rate > 60; Glucose 106 mg/dL (65-110); Potassium 3.8 mmol/L (3.4-5.0); Sodium 142 mmol/L (137-145)
[2022-08-16] MEDS: LEVOTHYROXINE SODIUM 75 MCG TABLET PO (06:37)
--- NOTE | 2022-08-16 07:51 | PM.PNCARD ---
Progress Note: A&P Assessment and Plan (1) Paroxysmal atrial flutter: Code(s): I48.92 - Unspecified atrial flutter Status: Acute Assessment and Plan: CSOWE2Vyma score 2. On aspirin. Direct admit for sotalol loading 80 mg PO every 12 hours. Obtain EKG 1-2 hours after each dose. Anticipate 1 more night stay. Monitor on telemetry. (2) Wenckebach pause: Code(s): I44.1 - Atrioventricular block, second degree Status: Acute Assessment and Plan: Monitor on telemetry. (3) Hyperlipidemia: Qualifiers: Hyperlipidemia type: unspecified Qualified Code(s): E78.5 - Hyperlipidemia, unspecified Code(s): E78.5 - Hyperlipidemia, unspecified Status: Chronic Assessment and Plan: On Pravastatin. (4) Dementia in Alzheimer's disease: Code(s): G30.9 - Alzheimer's disease, unspecified; F02.80 - Dementia in other diseases classified elsewhere, unspecified severity, without behavioral disturbance, psychotic disturbance, mood disturbance, and anxiety Status: Acute Assessment and Plan: On Rivastigmine. (5) Recurrent intestinal obstruction: Code(s): K56.609 - Unspecified intestinal obstruction, unspecified as to partial versus complete obstruction Status: Acute Assessment and Plan: Stable. Subjective Date/time seen: 08/16/22 07:51 Interval history: Denies chest pain, sob, palpitations. Exam Const: General: cooperative, healthy appearing and comfortable Resp: Auscultation: clear to auscultation bilaterally, no crackles, no rales, no rhonchi and no wheezes Cardio: Jugular venous distension: no JVD Rate: regular rate Rhythm: regular rhythm Heart sounds: no murmurs Peripheral pulses: dorsalis pedis present GI: GI Palp: No abdominal tenderness and Yes Soft to palpation Neuro: General: oriented to person, oriented to place and oriented to time Extrem: Right lower extremity: no edema Left lower extremity: no edema Objective Data Vital Signs Vital Signs: Vital Signs - 24 hr 08/15/22 19:01 08/15/22 16:40 08/15/22 20:00 Temperature 97.5 F L 98.2 F Pulse Rate 73 77 Respiratory Rate 16 16 Blood Pressure 131/58 L 115/49 L Pulse Oximetry 100 100 Oxygen Delivery Room Air 08/15/22 21:02 08/15/22 20:00 08/15/22 22:00 Temperature Pulse Rate 74 74 62 Respiratory Rate Blood Pressure Pulse Oximetry Oxygen Delivery 08/16/22 00:00 08/16/22 00:00 08/16/22 00:00 Temperature 97.6 F Pulse Rate 59 L 56 L Respiratory Rate 16 Blood Pressure 132/64 Pulse Oximetry 99 Oxygen Delivery Room Air 08/16/22 02:00 08/16/22 04:00 08/16/22 04:00 Temperature 98.3 F Pulse Rate 58 L 65 56 L Respiratory Rate 16 Blood Pressure 120/51 L Pulse Oximetry 98 Oxygen Delivery 08/16/22 06:00 08/16/22 04:00 Temperature Pulse Rate 58 L Respiratory Rate Blood Pressure Pulse Oximetry Oxygen Delivery Room Air Intake/Output Intake/Output: Intake & Output 08/13/22 08/14/22 08/15/22 08/16/22 23:59 23:59 23:59 23:59 Intake Total 600 Output Total 1300 Balance -700 Meds/Results Medications: Active Medications Generic Name Dose Route Start Last Admin Trade Name Rodneyq PRN Reason Stop Dose Admin Aspirin 325 mg 08/16/22 09:00 Aspirin 325 Mg Enteric Tablet PO QAM [facility] Enoxaparin Sodium 40 mg 08/16/22 09:00 Enoxaparin 40 Mg/0.4 Ml Syringe SUB-Q DAILY [facility] Ferrous Sulfate 324 mg 08/16/22 08:00 Ferrous Sulfate 324 Mg Tablet PO DAILY@0800 [facility] Levothyroxine Sodium 75 mcg 08/16/22 06:30 08/16/22 06:37 Levothyroxine Sodium 75 Mcg Tablet PO 75 mcg DAILY@0630 [facility] Administration Pravastatin Sodium 20 mg 08/15/22 21:00 08/15/22 21:03 Pravastatin Sodium 20 Mg Tablet PO 20 mg HS ASHLEY Administration Rivastigmine Tartrate 6 mg 08/15/22 21:00 08/15/22 21:04 Rivastigmine Tartrate 1.5 Mg Capsule PO 6 mg Q12HR S
[2022-08-16] MEDS: SOTALOL HCL 80 MG TABLET PO (08:10)
[2022-08-16] MEDS: FERROUS SULFATE 324 MG TABLET PO (08:11)
[2022-08-16] MEDS: ENOXAPARIN 40 MG/0.4 ML SYRINGE SUB-Q (08:11)
[2022-08-16] MEDS: CHOLECALCIFEROL 1,000 UNITS TABLET 1000 UNITS PO (08:11)
[2022-08-16] MEDS: RIVASTIGMINE TARTRATE 1.5 MG CAPSULE 6 MG PO ×2 (08:11→21:53)
[2022-08-16] MEDS: ASPIRIN 325 MG ENTERIC TABLET PO (08:11)
--- NOTE | 2022-08-16 10:00 | ECG_ITS ---
Measurements Intervals [place] Rate: 51 P: [place]: 0 QRS: -45 QRSD: 86 T: 47 QT: 434 QTc: 403 Interpretive Statements SINUS BRADYCARDIA WITH FIRST DEGREE AV BLOCK NON-CONDUCTED ATRIAL PREMATURE COMPLEX LEFT ANTERIOR FASCICULAR BLOCK ABNORMAL ECG COMPARED TO ECG 08/15/2022 23:13:44 SINUS BRADYCARDIA NOW PRESENT Electronically Signed On 08-16-2022 10:50:27 SONG WRITER by Marco A Dodd D.O.
[2022-08-16] MEDS: PRAVASTATIN SODIUM 20 MG TABLET PO (21:48)
[2022-08-16] MEDS: SOTALOL HCL 40 MG TABLET PO (21:48)
--- NOTE | 2022-08-16 23:48 | ECG_ITS ---
Measurements Intervals [place] Rate: 60 P: 60 [place]: 261 QRS: -49 QRSD: 82 T: 49 QT: 443 QTc: 446 Interpretive Statements SINUS RHYTHM WITH FIRST DEGREE AV BLOCK LEFT ANTERIOR FASCICULAR BLOCK ABNORMAL ECG COMPARED TO ECG 08/16/2022 10:18:33 NO SIGNIFICANT CHANGES Electronically Signed On 08-17-2022 7:02:24 QUARANTINE OFFICER by Marco A Dodd D.O.
[2022-08-17] VITALS (10 sets, daily range): BP systolic 110–145; BP diastolic 41–72; PULSE 53–71; RESP 16–18; TEMP 36.3–36.8; O2SAT 98–100
[2022-08-17] MEDS: LEVOTHYROXINE SODIUM 75 MCG TABLET PO (05:30)
--- NOTE | 2022-08-17 07:38 | PM.DS ---
DS: Admitting Diagnosis Discharge Date 08/17/22 Admitting Diagnosis Sotalol loading for symptomatic paroxysmal atrial flutter DS: Discharge Diagnosis Discharge Diagnosis Plan Successful Sotalol loading for symptomatic atrial flutter DS: Summary Hospital Course Reason for hospitalization: Sotalol loading Hospital Course: 72 yr old woman directly admitted to telemetry for sotalol loading for symptomatic paroxysmal atrial flutter. She was started on Sotalol 80 mg every 12 hours then it was noted her first degree AV block became markedly long and having pauses due to non-conducted PAC's. Therefore, Sotalol dose reduced to 40 mg BID. EKG post Sotalol dose shows stable QTc interval. Patient has not had any symptoms related to Sotalol, and on telemetry has not had any arrhythmias. Patient will be discharged home on Sotalol 40 mg PO every 12 hours, aspirin EC 325 mg daily, Pravastatin 20 mg qhs. She is also on non-cardiac medications including Rivastigmine 6 mg BID, Ferrous sulfate 325 mg daily, Levothyroxine 75 mcg daily, Vit D3 1000 unit daily. Patint will f/u with me in 1-2 weeks. Time spent discussing smoking cessation with patient: more than 10 minutes Status at Discharge Functional status at discharge: independent ambulation Overall status at discharge: patient is back to baseline Time Spent with Patient Time attestation: Total time spent providing and/or coordinating discharge services: Time spent: Less than 30 minutes Exam Const: General: cooperative, healthy appearing and comfortable Resp: Auscultation: clear to auscultation bilaterally, no crackles, no rales, no rhonchi and no wheezes Cardio: Jugular venous distension: no JVD Rate: regular rate Rhythm: regular rhythm Heart sounds: no murmurs Peripheral pulses: dorsalis pedis present GI: GI Palp: No abdominal tenderness and Yes Soft to palpation Neuro: General: oriented to person, oriented to place and oriented to time Extrem: Right lower extremity: no edema Left lower extremity: no edema Discharge Plan Discharge Attending physician on discharge: Marco A Dodd Discharging Clinician: Marco A Dodd Patient Disposition: Home, Self-Care Activity: as tolerated Diet: regular Patient Instructions: Antibiotic Form Stand Alone Forms: General Discharge Information Follow-up/Referrals: Marco A Dodd, [Physician] - (F/U 1-2 weeks) Discharge Medications: New sotalol 80 mg tablet 40 mg PO Q12H Qty: 30 5RF Continued cholecalciferol (vitamin D3) 25 mcg (1,000 unit) tablet,chewable 25 mcg PO DAILY multivitamin Tablet 1 tablet PO DAILY ferrous sulfate [FeroSul] 325 mg (65 mg iron) tablet 325 mg PO DAILY rivastigmine tartrate 6 mg capsule 6 mg PO BID levothyroxine 75 mcg tablet 75 mcg PO DAILY Qty: 90 1RF pravastatin 20 mg tablet 20 mg PO HS Qty: 90 1RF aspirin 325 mg tablet 325 mg PO DAILY Qty: 60 0RF Date of admission: 08/15/22 16:01 Primary Care Provider: German Simmons Admitting Provider: Marco A Dodd Attending physician on admission: Marco A Dodd Condition: Stable [facility] Discharge Billing Inpatient Discharge Inpatient Discharge: 55204 Hosp D/C 30 Min
[2022-08-17] MEDS: ASPIRIN 325 MG ENTERIC TABLET PO (08:01)
[2022-08-17] MEDS: FERROUS SULFATE 324 MG TABLET PO (08:01)
[2022-08-17] MEDS: RIVASTIGMINE TARTRATE 1.5 MG CAPSULE 6 MG PO (08:01)
[2022-08-17] MEDS: CHOLECALCIFEROL 1,000 UNITS TABLET 1000 UNITS PO (08:01)
[2022-08-17] MEDS: SOTALOL HCL 40 MG TABLET PO (08:02)
--- NOTE | 2022-08-17 10:52 | ECG_ITS ---
Measurements Intervals [place] Rate: 56 P: 52 [place]: 278 QRS: -44 QRSD: 87 T: 36 QT: 428 QTc: 414 Interpretive Statements SINUS BRADYCARDIA WITH FIRST DEGREE AV BLOCK LEFT AXIS DEVIATION ABNORMAL ECG COMPARED TO ECG 08/16/2022 23:54:56 SINUS BRADYCARDIA NOW PRESENT Electronically Signed On 08-17-2022 11:00:45 AUTOMOBILE TAILLIGHT ASSEMBLER by Marco A Dodd D.O.
== END 2022-08-17 13:00 | disposition home or self-care (01) | DRG 309 ==
PROVIDERS: Admitting Provider Internal Medicine Cardiovascular Disease; PCP Family Medicine; Visit Provider Internal Medicine Cardiovascular Disease
DX: I48.92 Unspecified atrial flutter (principal); K56.609 Unspecified intestinal obstruction, unspecified as to partial versus complete obstruction; I44.1 Atrioventricular block, second degree; E87.5 Hyperkalemia; G30.9 Alzheimer's disease, unspecified; F02.80 Dementia in other diseases classified elsewhere, unspecified severity, without behavioral disturbance, psychotic disturbance, mood disturbance, and anxiety; M85.80 Other specified disorders of bone density and structure, unspecified site; E11.9 Type 2 diabetes mellitus without complications; E55.9 Vitamin D deficiency, unspecified; Z80.3 Family history of malignant neoplasm of breast; Z79.82 Long term (current) use of aspirin; Z79.899 Other long term (current) drug therapy
CPT/HCPCS: 36415; 80053; 85027; 93005; A9270; J1650

== ENCOUNTER 2022-09-25 08:21 | Outpatient (CLI) | payer MEDICARE, SELFPAY ==
[2022-09-26 10:45] LABS: Basophils Percent Auto 0.4 % (0.2-1.2); Eosinophils Absolute Auto 0.2 K/mm3 (0-0.3); Eosinophils Percent Auto 3.8 % (0-4.4); Hematocrit 37.8 % (37.0-47.0); Hemoglobin 12.1 g/dL (12.0-15.0); Immature Granulocyte Absolute 0.04 K/mm3 (0.00-0.031); Immature Granulocyte Percent A 0.9 % (0-0.5); Lymphocytes Absolute Auto 0.99 K/mm3 (0.9-3.2); Mean Corpuscular Hemoglobin 31.2 pg (26-34); Mean Corpuscular Volume 97.4 fl (80-100); Mean Platelet Volume 12.9 fl (7.4-10.4); Monocytes Absolute Auto 0.4 K/mm3 (0.1-0.6); Monocytes Percent Auto 9.3 % (2.6-8.5); Neutrophils Absolute Auto 2.9 K/mm3 (1.3-6.7); Neutrophils Percent Auto 63.6 % (45.5-73.1); Platelet Count Result 237 k/mm3 (150-375); Red Blood Count 3.88 M/mm3 (4.2-5.4); Red Cell Distribution Width 14.1 % (11.5-14.5); White Blood Count 4.5 K/mm3 (4.5-10.0)
== END 2022-09-25 08:22 | disposition home or self-care (01) ==
LOC: ANHGOSHLAB 08:23
PROVIDERS: PCP Family Medicine; Visit Provider Family Medicine
DX: D72.819 Decreased white blood cell count, unspecified (principal)
CPT/HCPCS: 36415; 85025

== ENCOUNTER 2022-12-06 10:17 | Observation (INO) | payer MEDICARE, SELFPAY ==
[2022-12-06] VITALS (12 sets, daily range): BP systolic 132–178; BP diastolic 62–90; PULSE 53–82; RESP 13–19; TEMP 36.2–36.4; O2SAT 94–100
[2022-12-06] MEDS: SODIUM CHLORIDE 0.9% IV 1,000 ML 999 ML IV CONT (10:42)
[2022-12-06] MEDS: ONDANSETRON INJ 4 MG/2 ML VIAL IV PUSH (10:42)
[2022-12-06 10:51] LABS: Glucose Point of Care 171 mg/dl (65-105)
[2022-12-06 10:53] LABS: Basophils Percent Auto 0.5 % (0.2-1.2); Eosinophils Absolute Auto 0.1 K/mm3 (0-0.3); Eosinophils Percent Auto 1.4 % (0-4.4); Hematocrit 41.7 % (37.0-47.0); Hemoglobin 13.3 g/dL (12.0-15.0); Immature Granulocyte Absolute 0.02 K/mm3 (0.00-0.031); Immature Granulocyte Percent A 0.4 % (0-0.5); Lymphocytes Absolute Auto 1.36 K/mm3 (0.9-3.2); Lymphocytes Percent Auto 24.5 % (18.3-44.2); Mean Corpuscular HGB Conc 31.9 g/dl (32-36); Mean Corpuscular Hemoglobin 31.8 pg (26-34); Mean Corpuscular Volume 99.8 fl (80-100); Mean Platelet Volume 12.1 fl (7.4-10.4); Monocytes Absolute Auto 0.6 K/mm3 (0.1-0.6); Monocytes Percent Auto 10.8 % (2.6-8.5); Neutrophils Absolute Auto 3.5 K/mm3 (1.3-6.7); Neutrophils Percent Auto 62.4 % (45.5-73.1); Platelet Count Result 253 k/mm3 (150-375); Red Blood Count 4.18 M/mm3 (4.2-5.4); Red Cell Distribution Width 14.6 % (11.5-14.5); White Blood Count 5.6 K/mm3 (4.5-10.0)
--- NOTE | 2022-12-06 11:00 | ECG_ITS ---
Measurements Intervals [place] Rate: 64 P: 63 WV: 270 QRS: -43 QRSD: 85 T: 58 QT: 437 QTc: 452 Interpretive Statements SINUS RHYTHM WITH FIRST DEGREE AV BLOCK LEFT AXIS DEVIATION POSSIBLE LEFT ATRIAL ENLARGEMENT INCOMPLETE RIGHT BUNDLE BRANCH BLOCK BASELINE ARTIFACT- I, II, V1-V6 ABNORMAL ECG COMPARED TO ECG 08/17/2022 10:58:36 SINUS RHYTHM NOW PRESENT Electronically Signed On 12-06-2022 12:32:00 [employer]ACH[employer] HEL[employer] by Marco A Dodd D.O.
--- NOTE | 2022-12-06 11:02 | ED.GENADULT ---
HPI - General Adult General Chief complaint: Nausea/Vomiting/Diarrhea Stated complaint: NEAR SYNCOPE Time Seen by Provider: 12/06/22 10:25 History of Present Illness HPI narrative: 72-year-old female presenting to the emergency department for evaluation of nausea vomiting and a syncopal episode. Family states that they were out to breakfast and patient had onset of nausea vomiting. Patient did have a bowel movement as well. While was bringing her to the emergency department he states that the patient had a 15-second period of loss of consciousness. Upon arrival to the emergency department when patient was placed on the monitor patient was having nausea vomiting and did have an episode of bradycardia down into the 30s. Patient had no loss of consciousness with this episode. Patient does have prior history of paroxysmal SVT, paroxysmal atrial flutter, pauses, PACs, high cholesterol and intermittent small bowel obstructions Related Data Home Medications Medication Instructions Recorded Confirmed ferrous sulfate 325 mg (65 mg 325 mg PO DAILY 05/01/22 12/06/22 iron) tablet (FeroSul) multivitamin 1 tablet PO DAILY 05/01/22 12/06/22 rivastigmine tartrate 6 mg capsule 6 mg PO BID 08/07/22 12/06/22 cholecalciferol (vitamin D3) 25 25 mcg PO DAILY 08/15/22 12/06/22 mcg (1,000 unit) chewable tablet aspirin 325 mg tablet 325 mg PO QHS 12/06/22 12/06/22 Allergies Allergy/AdvReac Type Severity Reaction Status Date / Time No Known Allergies Allergy Unknown Verified 12/06/22 16:12 Review of Systems Review of Systems: CONSTITUTIONAL: Denies fever, chills, or sweats. EYES: Denies visual changes, redness, or discharge. ENT: Denies rhinorrhea, congestion, sore throat, or otalgia. CARDIOVASCULAR: See HPI RESPIRATORY: Denies cough or dyspnea. GASTROINTESTINAL: Denies abdominal pain, nausea, vomiting, or diarrhea. GENITOURINARY: Denies dysuria or hematuria. SKIN: Denies rash or itching. MUSCULOSKELETAL: Denies back pain, joint pain, or myalgia. NEUROLOGIC: Denies headache, numbness, or weakness. [facility] Past Medical History Medical History Dementia in Alzheimer's disease Heart murmur Hyperlipidemia Osteopenia Postmenopausal Premature atrial contractions Recurrent intestinal obstruction Type 2 diabetes mellitus without complications Vitamin D deficiency Surgical History Surgical History History of 2 sections 1983 and 1988. History of appendectomy History of ovarian cystectomy 1980s Family History Family History Mother Family history of malignant neoplasm of breast in first degree relative Social History Social History (Updated 12/06/22 @ 14:06 by Izabella Jane NP) Social History: The patient lives in [place] with her . 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 No alcohol or illicit substance abuse. Surrogate medical decision maker: Rodolfo Gomez, spouse. Code status: Full code. Smoking status: Never smoker Alcohol intake: never Substance use: never Lack of Transportation: No Lack of Food: Never True Current Housing: I Have Housing Concerned About Future Housing: No Difficulty Paying Gas/Electric Bills: No Difficulty Paying for Meds: No Currently Unemployed: No Education: High School Diploma/GED Difficulty w/ Childcare or Family Care: No Living arrangements: with family Occupation/Education: retired Gender identity (if verbalized by the patient): Female Sexual Orientation (if Verbalized by the Patient): Straight or Heterosexual Spiritual care concerns: No Agree to blood products: Yes Exam Narrative: APPEARANCE: Well appearing, no pain, no distress, well-nourished. HEAD: normocephalic, atraumatic. EYES: PERRLA/EOMI, conjunctivae clear. NOSE: Normal no
[2022-12-06 11:04] LABS: Alanine Aminotransferase 32 U/L (6-35); Albumin Level 4.2 g/dL (3.5-5.1); Alkaline Phosphatase 96 U/L (38-126); Anion Gap 6 mmol/L (8-16); Aspartate Amino Transferase 55 U/L (14-36); Bilirubin,Total 0.8 mg/dL (0.2-1.3); Blood Urea Nitrogen 14 mg/dL (7-17); Calcium 9.3 mg/dL (8.4-10.2); Carbon Dioxide 26 mmol/L (22-30); Chloride 105 mmol/L (98-107); Estimated CRCL calculation 58 ml/min; Estimated Glomerular Filt Rate > 60; Glucose 176 mg/dL (65-110); Potassium 4.4 mmol/L (3.4-5.0); Sodium 137 mmol/L (137-145)
[2022-12-06 11:10] LABS: Lipase 43 U/L (23-300)
[2022-12-06 11:12] LABS: Lactic Acid Reflex 1.6 mmol/L (0.7-2.0)
[2022-12-06] MEDS: METOCLOPRAMIDE HCL INJ 10 MG/2 ML VIAL IV PUSH (11:21)
[2022-12-06] MEDS: SODIUM CHLORIDE 0.9% IV 1,000 ML 500 ML IV CONT (11:26)
[2022-12-06 11:43] LABS: Magnesium 2.2 mg/dL (1.6-2.3)
[2022-12-06 12:54] LABS: Appearance Urine Clear (Clear); Bilirubin Urine Negative (Negative); Blood Urine Negative (Negative); Color Urine Yellow (Yellow); Glucose Urine UA Trace mg/dL (Negative); Ketones Urine 1+ mg/dL (Negative); Leukocyte Esterase Ur Negative LEU/UL (Negative); Nitrate Urine Negative (Negative); Protein Urine Negative (Negative); Specific Grav Ur 1.008 (1.001-1.035); Urobilinogen Urine 0.2 mg/dL (<2.0)
[2022-12-06 13:06] LABS: Add Urine Microscopic? NO
--- NOTE | 2022-12-06 13:59 | PM.IMHP ---
H&P: HPI History of Present Illness Date/Time: 12/06/22 13:59 Chief Complaint: Nausea vomiting and diarrhea, near syncope Narrative: This is a 72-year-old female patient who came to the emergency department for evaluation and nausea vomiting syncopal episode. The patient was out eating breakfast with her family when she developed sudden onset of nausea and vomiting. The patient had a large bowel movement at the facility. The was bringing the patient to the hospital and the patient had approximately a 12nd periods of loss of consciousness. The patient's thought that he was going to have to start CPR on her but he stated he continue to drive instead. Upon arrival to the emergency department the patient was placed on the monitor and she is having nausea vomiting and did have an episode of bradycardia down in the 30s. Is possible that the patient may have had a vasovagal episode. The patient is awake and talking at this time. Patient's glucose levels 171. Carotid Dopplers were performed on 07/06/2022.. Her blood pressure is elevated 161/64. The patient denied feeling any dizziness or having any precursors prior to her syncopal episode. The patient cannot remember the events that occurred prior to her syncopal episode. The patient was given IV fluids, Reglan, and 2 L of IV fluids. The patient was admitted to observation status on the date of service of 11/26/2022 Review of Systems Review of Systems: See HPI All systems reviewed & are unremarkable except as noted in HPI and below Constitutional: Constitutional: Reports as per HPI and Reports no additional constitutional complaints Eyes: Eyes: Reports as per HPI and Reports no additional eye complaints ENT: Reports system reviewed and no additional complaints, except as documented and Reports Normal hearing present Cardiovascular: Cardiovascular: Reports no additional cardiovascular complaints Respiratory: Respiratory: Reports no additional respiratory complaints and Reports no additional respiratory complaints Gastrointestinal: Gastrointestinal: Reports as per HPI and Reports no additional gastrointestinal complaints Musculoskeletal: Musculoskeletal: Reports no additional musculoskeletal complaints Integumentary/Breasts: Skin/Breast: Reports system reviewed and no additional complaints, except as docu and Reports as per HPI Neurologic: Reports system reviewed and no additional complaints, except as documented, Reports as per HPI and Reports Normal hearing present Psychiatric: Psychiatric: Reports no additional psychiatric complaints and Reports as per HPI Endocrine: Endocrine: Reports no additional endocrine complaints Hematologic/Lymphatic: Hematologic/Lymphatic: Reports no additional hematologic/lymphatic complaints Allergic/Immunologic: Allergic/Immunologic: Reports no additional allergic/immunologic complaints PMFSH Past Medical History Medical History Dementia in Alzheimer's disease Heart murmur Hyperlipidemia Hypertension Osteopenia Postmenopausal Premature atrial contractions Recurrent intestinal obstruction Type 2 diabetes mellitus without complications Vitamin D deficiency Surgical History Surgical History History of 2 sections 1983 and 1988. History of appendectomy History of ovarian cystectomy 1980s Family History Family History Mother Family history of malignant neoplasm of breast in first degree relative Social History Social History (Updated 12/06/22 @ 16:40 by Izabella Jane NP) Social History: The patient lives in [place] with her . 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 No alcohol or illicit substance abuse. Surrogate medical decision maker: Rodolfo Gomez, spouse. Code status: Full code. Smoking status
--- NOTE | 2022-12-06 15:38 | ADMGEN ---
This patient, Ritu Gomez, was admitted to IMU Room 207-01. Patient/family oriented to hospital policies and general routines including ID bracelet, bed and alarms, visiting hours, pain management, procedures, bathroom and other care routines, personal items, smoking policy, room service/diet, and visiting hours. Information on how to activate the Rapid Response Team has been discussed. Patient/Family are encouraged to report perceived risks to care and to ask questions if they do not understand what they are told or what they should do.
[2022-12-06] MEDS: RIVASTIGMINE TARTRATE 1.5 MG CAPSULE 6 MG PO (17:49)
[2022-12-06] MEDS: SODIUM CHLORIDE 0.9% IV 1,000 ML 125 ML IV CONT (17:50)
--- NOTE | 2022-12-06 18:29 | PM.CNCAR ---
Assessment and Plan Assessment and plan (1) Syncope: Qualifiers: Syncope type: unspecified Qualified Code(s): R55 - Syncope and collapse Code(s): R55 - Syncope and collapse Status: Acute Assessment and Plan: Probably vasovagal syncope from N/V episode. However, need to r/o conduction abnormalities or pauses as a cause. Continue telemetry overnight. If develops pauses or significant bradycardia, then consider pacemaker. If telemetry is unremarkable, may d/c home tomorrow. (2) Bradycardia: Code(s): R00.1 - Bradycardia, unspecified Status: Acute Assessment and Plan: Stable. (3) Paroxysmal atrial flutter: Code(s): I48.92 - Unspecified atrial flutter Status: Acute Assessment and Plan: On Sotalol 40 mg BID. On aspirin. (4) Hyperlipidemia: Qualifiers: Hyperlipidemia type: unspecified Qualified Code(s): E78.5 - Hyperlipidemia, unspecified Code(s): E78.5 - Hyperlipidemia, unspecified Status: Chronic Assessment and Plan: On Pravastatin. (5) Wenckebach pause: Code(s): I44.1 - Atrioventricular block, second degree Status: Acute History of Present Illness History of Present Illness Consult date/time: 12/06/22 18:29 Reason For Visit: Syncope, bradycardia, nausea/vomitting Narrative: 72 yr old woman who is my regular cardiology patient and a patient of [place] Reed presents to ER with syncope. She has a history of PSVT, paroxysmal atrial flutter with pauses,? PAC's, dyslipidemia, chronic intermittent SBO. Reports she was having breakfast this morning and then felt nauseated and vomiting a small amount, she then went to restroom and had bowel movement. Then she felt lightheaded and was sweating. Her got her in car and as he drove off he noted she was having dry heaves and passed out for a brief moment. He then drove her in to ER. Upon arrival to ER it was noted on monitor that her HR was down to 30's bpm range. She is feeling fine now without any more dizziness or nausea. She is doing well with no palpitations on Sotalol.? She can walk miles without any problems.? Denies chest pain, sob, palpitations, orthopnea, PND, edema. Cardiovascular Procedures Echo/MUGA:: 07/05/22 Echo: EF 65-70%, diastolic dysfunction (E/e' 10), mild AI, trace TR. 07/05/21 Echo: EF 65-70%, diastolic dysfunction (E/e' 10), mild AI/TR. Electrophysiology:: 12/05/22 EKG: Sinus rhythm at 60 bpm, QTc 425 ms. 08/29/22 EKG: Sinus bradycardia at 57 bpm, first degree AV block, QTc 410 ms. 08/16/22 EKG: Sinus rhythm with first degree AV block, LAFB, QTc 446 ms. 07/05/22 EKG: Sinus rhythm with first degree AV block and nonconducted PAC. 08/08/22 28 days event monitor: Sinus rhythm, HR range 34-182 bpm; average 75 bpm; 34 bpm was at 04:09 due to nonconducted PAC; 182 bpm was due to SVT; 2% PAC's, 1 SVT at 182 bpm on 08/04/22 at 09:20; there are 645 episodes of atrial flutter with HR range 38-182 bpm with a burden of 22%; the longest lasted 4 hours and 12 minutes and fastest at 182 bpm.<1% PVC; 41 episodes of second degree AV block type I with slowest HR 41 bpm, 17 episodes of pauses greater than 2 seconds and longest is 2.8 seconds on 07/10/22 at 22:31 during atrial flutter at 36 bpm. 10/02/21 27 days event monitor: Sinus rhythm, HR range 34-132 bpm; average 67 bpm; HR 34 was at 20:44, 9% PAC's and <1% PVC's, first degree AV block wit intermittent type I second degree AV block and longest pause 2.1 seconds 05/30/21 EKG: Sinus rhythm with PAC's. Stress Tests:: 07/05/22 Carotid duplex:<50% bilateral ICA. Review of Systems Review of Systems: All systems reviewed & are unremarkable except as noted in HPI and below Constitutional: Constitutional: Reports as per HPI, Denies chills and Denies fever(s) Cardiovascular: Cardiovascular: Reports as per HPI, Denies chest pain, Denies irregular heart rhythm, Denies leg edema and Reports lightheadedness Respiratory: Respiratory: Repor
[2022-12-06] MEDS: SOTALOL HCL 40 MG TABLET PO (20:20)
[2022-12-06] MEDS: ASPIRIN 325 MG TABLET PO (20:21)
[2022-12-06] MEDS: PRAVASTATIN SODIUM 20 MG TABLET PO (20:21)
[2022-12-06 20:55] LABS: Glucose Point of Care 142 mg/dl (65-105)
[2022-12-07] VITALS (8 sets, daily range): BP systolic 138–161; BP diastolic 51–81; PULSE 53–80; RESP 16–20; TEMP 36.5–36.7; O2SAT 98–100
--- NOTE | 2022-12-07 03:25 | PC.NURSE ---
Daylight Savings Time For Daylight Savings Time Ending in the Fall - Clocks are moved back. For Daylight Savings Time Beginning in the Spring - Clocks are moved ahead. For [facility], the time of change occurs at 0200 hrs. Time is taken from the casino beverage server. This entry on the patient's chart recognizes the change in time reflected during documentation. Example: 2 entries for vital signs may be charted for 0200 hrs.
[2022-12-07 04:15] LABS: Basophils Percent Auto 0.3 % (0.2-1.2); Eosinophils Percent Auto 0.6 % (0-4.4); Hematocrit 34.7 % (37.0-47.0); Hemoglobin 11.3 g/dL (12.0-15.0); Immature Granulocyte Absolute 0.01 K/mm3 (0.00-0.031); Immature Granulocyte Percent A 0.2 % (0-0.5); Lymphocytes Absolute Auto 1.29 K/mm3 (0.9-3.2); Lymphocytes Percent Auto 20.7 % (18.3-44.2); Mean Corpuscular HGB Conc 32.6 g/dl (32-36); Mean Corpuscular Hemoglobin 31.6 pg (26-34); Mean Corpuscular Volume 96.9 fl (80-100); Mean Platelet Volume 11.8 fl (7.4-10.4); Monocytes Absolute Auto 0.8 K/mm3 (0.1-0.6); Monocytes Percent Auto 12.3 % (2.6-8.5); Neutrophils Absolute Auto 4.1 K/mm3 (1.3-6.7); Neutrophils Percent Auto 65.9 % (45.5-73.1); Platelet Count Result 223 k/mm3 (150-375); Red Blood Count 3.58 M/mm3 (4.2-5.4); Red Cell Distribution Width 14.3 % (11.5-14.5); White Blood Count 6.2 K/mm3 (4.5-10.0)
[2022-12-07 04:26] LABS: Lactic Acid Reflex 0.6 mmol/L (0.7-2.0)
[2022-12-07 04:30] LABS: Alanine Aminotransferase 27 U/L (6-35); Albumin Level 3.3 g/dL (3.5-5.1); Alkaline Phosphatase 78 U/L (38-126); Anion Gap 4 mmol/L (8-16); Aspartate Amino Transferase 35 U/L (14-36); Bilirubin,Total 0.4 mg/dL (0.2-1.3); Blood Urea Nitrogen 11 mg/dL (7-17); Calcium 8.7 mg/dL (8.4-10.2); Carbon Dioxide 26 mmol/L (22-30); Chloride 104 mmol/L (98-107); Estimated CRCL calculation 67 ml/min; Estimated Glomerular Filt Rate > 60; Glucose 98 mg/dL (65-110); Magnesium 2.1 mg/dL (1.6-2.3); Potassium 3.2 mmol/L (3.4-5.0); Sodium 134 mmol/L (137-145)
[2022-12-07 05:04] LABS: Hemoglobin A1C 6.5 % (<5.7)
[2022-12-07 05:28] LABS: Thyroid Stimulating Hormone Reflex 0.991 uIU/mL (0.465-4.68)
[2022-12-07] MEDS: LEVOTHYROXINE SODIUM 75 MCG TABLET PO (06:05)
[2022-12-07 07:49] LABS: Glucose Point of Care 101 mg/dl (65-105)
--- NOTE | 2022-12-07 08:48 | PM.PNCARD ---
Progress Note: A&P Assessment and Plan (1) Syncope: Qualifiers: Syncope type: unspecified Qualified Code(s): R55 - Syncope and collapse Code(s): R55 - Syncope and collapse Status: Acute Assessment and Plan: Probably vasovagal syncope from N/V episode. However, need to r/o conduction abnormalities or pauses as a cause. Continue telemetry overnight. If develops pauses or significant bradycardia, then consider pacemaker. Telemetry shows only mild Wenkebach. Give KCl 20 meq PO x1 for potassium 3.2 today. Since telemetry is unremarkable, may d/c home. She already has f/u appointment with me in 6 months. (2) Bradycardia: Code(s): R00.1 - Bradycardia, unspecified Status: Acute Assessment and Plan: Stable. (3) Paroxysmal atrial flutter: Code(s): I48.92 - Unspecified atrial flutter Status: Acute Assessment and Plan: On Sotalol 40 mg BID. On aspirin. (4) Hyperlipidemia: Qualifiers: Hyperlipidemia type: unspecified Qualified Code(s): E78.5 - Hyperlipidemia, unspecified Code(s): E78.5 - Hyperlipidemia, unspecified Status: Chronic Assessment and Plan: On Pravastatin. (5) Wenckebach pause: Code(s): I44.1 - Atrioventricular block, second degree Status: Acute Assessment and Plan: Chronic and mild intermittent. Subjective Date/time seen: 12/07/22 08:48 Interval history: No longer having dizziness, nausea or vomiting. No chest pain or sob. Exam Const: General: cooperative, healthy appearing and comfortable Orientation/consciousness: oriented to person, oriented to place and oriented to time Resp: Auscultation: clear to auscultation bilaterally, no crackles, no rales, no rhonchi and no wheezes Cardio: Rate: regular rate Rhythm: regular rhythm Heart sounds: no murmurs Peripheral pulses: dorsalis pedis present Neuro: General: oriented to person, oriented to place and oriented to time Extrem: Right lower extremity: no edema Left lower extremity: no edema Objective Data Vital Signs Vital Signs: Vital Signs - 24 hr 12/06/22 10:22 12/06/22 11:50 12/06/22 13:13 Temperature 97.1 F L Pulse Rate 64 64 64 Respiratory Rate 16 19 16 Blood Pressure 178/90 H 169/76 H 168/72 H Pulse Oximetry 100 99 94 Oxygen Delivery Room Air 12/06/22 14:18 12/06/22 15:17 12/06/22 15:38 Temperature 97.2 F L Pulse Rate 65 62 70 Respiratory Rate 13 16 16 Blood Pressure 163/72 H 146/62 H 161/64 H Pulse Oximetry 99 98 100 Oxygen Delivery 12/06/22 16:22 12/06/22 16:00 12/06/22 20:00 Temperature 97.6 F Pulse Rate 72 82 Respiratory Rate 16 Blood Pressure 132/80 Pulse Oximetry 97 Oxygen Delivery Room Air 12/06/22 20:20 12/06/22 20:00 12/06/22 21:00 Temperature Pulse Rate 77 Respiratory Rate Blood Pressure 132/80 151/68 H Pulse Oximetry Oxygen Delivery 12/06/22 21:00 12/06/22 20:00 12/06/22 20:00 Temperature Pulse Rate 77 Respiratory Rate Blood Pressure 144/71 H Pulse Oximetry 97 Oxygen Delivery Room Air 12/06/22 22:00 12/06/22 23:54 12/07/22 00:00 Temperature 97.4 F L Pulse Rate 53 L 66 53 L Respiratory Rate 18 Blood Pressure 136/68 Pulse Oximetry 100 Oxygen Delivery 12/07/22 00:00 12/07/22 03:00 12/07/22 04:00 Temperature Pulse Rate 60 66 Respiratory Rate Blood Pressure Pulse Oximetry 100 Oxygen Delivery Room Air 12/07/22 04:00 12/07/22 04:00 12/07/22 06:00 Temperature 97.7 F Pulse Rate 63 80 Respiratory Rate 18 Blood Pressure 143/51 H Pulse Oximetry 98 98 Oxygen Delivery Room Air 12/07/22 08:00 Temperature 98.1 F Pulse Rate 63 Respiratory Rate 16 Blood Pressure 138/55 L Pulse Oximetry 100 Oxygen Delivery Intake/Output Intake/Output: Intake & Output 12/04/22 12/05/22 12/06/22 12/08/22 23:59 23:59 23:59 00:59 Intake Total 2120 350 Output Total 500 600 Balance
[2022-12-07] MEDS: POTASSIUM CHLORIDE 20 MEQ TABLET PO (09:13)
[2022-12-07] MEDS: SODIUM CHLORIDE 0.9% IV 1,000 ML 75 ML IV CONT (09:20)
[2022-12-07] MEDS: FERROUS SULFATE 324 MG TABLET PO (09:24)
[2022-12-07] MEDS: MULTIVITAMINS THERAPEUTIC TAB (*BKC) 1 TABLET PO (09:24)
[2022-12-07] MEDS: RIVASTIGMINE TARTRATE 1.5 MG CAPSULE 6 MG PO (09:24)
[2022-12-07] MEDS: CHOLECALCIFEROL 1,000 UNITS TABLET 1000 UNITS PO (09:24)
[2022-12-07] MEDS: POTASSIUM CHLORIDE 20 MEQ PACKET (FOR LIQUID) 40 MEQ PO (10:52)
--- NOTE | 2022-12-07 12:09 | PM.DS ---
DS: Admitting Diagnosis Discharge Date December 07, 2022 Admitting Diagnosis Syncope, bradycardia, AFib/flutter DS: Discharge Diagnosis Discharge Diagnosis (1) Syncope: Qualifiers: Syncope type: unspecified Qualified Code(s): R55 - Syncope and collapse Code(s): R55 - Syncope and collapse Status: Acute Assessment and Plan: CTA and CT of the brain has been ordered. It was recorded that the patient's heart rate dropped down in the 30s. This could be a vasovagal event. Could also be dehydration. Patient was started on IV fluids. Cardiology has been consulted for possible symptomatic bradycardia. I am holding her sotalol for now However Cardiology did restarted. (2) Nausea & vomiting: Qualifiers: Vomiting type: unspecified Qualified Code(s): R11.2 - Nausea with vomiting, unspecified Code(s): R11.2 - Nausea with vomiting, unspecified Status: Acute Assessment and Plan: Continue with IV fluids and Zofran. (3) Hypertension: Code(s): I10 - Essential (primary) hypertension Status: Acute Assessment and Plan: The patient is on sotalol , restarted by Cardiology (4) Bradycardia: Code(s): R00.1 - Bradycardia, unspecified Status: Acute Assessment and Plan: Continue to monitor on telemetry. May also consider sending the patient home Holter monitor. (5) Paroxysmal atrial flutter: Code(s): I48.92 - Unspecified atrial flutter Status: Acute Assessment and Plan: Patient was restarted on sotalol per Cardiology (6) Dementia in Alzheimer's disease: Code(s): G30.9 - Alzheimer's disease, unspecified; F02.80 - Dementia in other diseases classified elsewhere, unspecified severity, without behavioral disturbance, psychotic disturbance, mood disturbance, and anxiety Status: Acute Assessment and Plan: Continue with Exelon (7) Hypothyroidism: Qualifiers: Hypothyroidism type: acquired Qualified Code(s): E03.9 - Hypothyroidism, unspecified Code(s): E03.9 - Hypothyroidism, unspecified Status: Chronic Assessment and Plan: Continue with Synthroid and check thyroid level. (8) Hyperlipidemia: Qualifiers: Hyperlipidemia type: unspecified Qualified Code(s): E78.5 - Hyperlipidemia, unspecified Code(s): E78.5 - Hyperlipidemia, unspecified Status: Chronic Assessment and Plan: Continue with pravastatin. DS: Summary Hospital Course Hospital Course: Patient admitted for syncope. Cardiology consult did. No further recommendations. This was likely a vasovagal episode. She can follow-up with her vinyl installer. I did discuss this case with Dr. Dodd he did also see the patient. Time Spent with Patient Time attestation: Total time spent providing and/or coordinating discharge services: Exam Const: General: cooperative, healthy appearing, comfortable, no acute distress, well developed, alert, awake, Physically active, average body habitus and well nourished Nutritional Appearance: average body habitus and well nourished Orientation/consciousness: oriented to person, oriented to place, oriented to time and patient oriented x3 Limitations: no limitations HENMT: Head: normal to inspection, No palpable skull fracture present, normocephalic and atraumatic Ears: hearing grossly normal bilaterally and external ears normal Face/Nose/Sinus: Normal external nose present and Normal nares present Eyes: General: appearance normal, both eyes and all related structures Alignment and Position: alignment normal Periorbital: periorbital findings normal Eyelids: eyelids normal Sclera: sclerae normal Pupils: Equal, round and reactive pupils present EOM: EOMs intact bilaterally Neck: Neck: normal visual inspection, full ROM, no lymphadenopathy, trachea midline and supple Chest: Chest palpation & inspection: normal inspection of the chest Resp: Effort & Inspection: n
--- NOTE | 2022-12-07 12:45 | ECG_ITS ---
Measurements Intervals [place] Rate: 58 P: [place]: 0 QRS: -40 QRSD: 85 T: 27 QT: 441 QTc: 436 Interpretive Statements SINUS BRADYCARDIA WITH FIRST DEGREE AV BLOCK NON-CONDUCTED PREMATURE ATRIAL COMPLEX INCOMPLETE RIGHT BUNDLE BRANCH BLOCK BORDERLINE ECG COMPARED TO ECG 12/06/2022 10:24:02 SINUS BRADYCARDIA NOW PRESENT Electronically Signed On 12-07-2022 13:18:02 CDT by Marco A Dodd D.O.
[2022-12-07] MEDS: SOTALOL HCL 40 MG TABLET PO (12:54)
== END 2022-12-07 15:50 | disposition home or self-care (01) ==
LOC: ANHED 12:37 → ANHIMU 12-07 12:09
PROVIDERS: Nurse Practitioner; Admitting Provider Internal Medicine; Emergency Provider Emergency Medicine; PCP Family Medicine; Visit Provider Chiropractor
DX: R55 Syncope and collapse (principal); R11.2 Nausea with vomiting, unspecified; I10 Essential (primary) hypertension; R00.1 Bradycardia, unspecified; I48.92 Unspecified atrial flutter; G30.9 Alzheimer's disease, unspecified; F02.80 Dementia in other diseases classified elsewhere, unspecified severity, without behavioral disturbance, psychotic disturbance, mood disturbance, and anxiety; E03.9 Hypothyroidism, unspecified; E78.5 Hyperlipidemia, unspecified; I44.1 Atrioventricular block, second degree; E11.9 Type 2 diabetes mellitus without complications; E55.9 Vitamin D deficiency, unspecified; R94.31 Abnormal electrocardiogram [ECG] [EKG]; R01.1 Cardiac murmur, unspecified; M85.80 Other specified disorders of bone density and structure, unspecified site; Z79.82 Long term (current) use of aspirin; Z79.899 Other long term (current) drug therapy
CPT/HCPCS: 36415; 80053; 81003; 82948; 83036; 83605; 83690; 83735; 84443; 85025; 93005; 96361; 96374; 96375; 99285; A9270; G0378; J2405; J2765; J7030

== ENCOUNTER 2023-02-05 09:29 | Outpatient (CLI) | payer MEDICARE, SELFPAY ==
[2023-02-05 19:25] LABS: Alanine Aminotransferase 19 U/L (6-35); Albumin Level 3.9 g/dL (3.5-5.1); Alkaline Phosphatase 81 U/L (38-126); Anion Gap 2 mmol/L (8-16); Aspartate Amino Transferase 49 U/L (14-36); Bilirubin,Total 0.4 mg/dL (0.2-1.3); Blood Urea Nitrogen 20 mg/dL (7-17); Calcium 9.2 mg/dL (8.4-10.2); Carbon Dioxide 35 mmol/L (22-30); Chloride 103 mmol/L (98-107); Estimated Glomerular Filt Rate > 60; Glucose 103 mg/dL (65-110); Potassium 4.6 mmol/L (3.4-5.0); Sodium 140 mmol/L (137-145)
[2023-02-05 19:41] LABS: Thyroid Stimulating Hormone Reflex 0.573 uIU/mL (0.465-4.68)
[2023-02-05 21:22] LABS: Hemoglobin A1C 6.4 % (<5.7)
== END 2023-02-05 09:30 | disposition home or self-care (01) ==
LOC: ANHGOSHLAB 09:31
PROVIDERS: PCP Family Medicine; Visit Provider Family Medicine
DX: E11.9 Type 2 diabetes mellitus without complications (principal); E78.5 Hyperlipidemia, unspecified; E03.9 Hypothyroidism, unspecified; F02.80 Dementia in other diseases classified elsewhere, unspecified severity, without behavioral disturbance, psychotic disturbance, mood disturbance, and anxiety; G30.9 Alzheimer's disease, unspecified; I48.92 Unspecified atrial flutter
CPT/HCPCS: 36415; 80053; 83036; 84443

== ENCOUNTER 2023-08-12 08:08 | Outpatient (CLI) | payer MEDICARE, SELFPAY ==
[2023-08-12 19:17] LABS: Basophils Percent Auto 0.7 % (0.2-1.2); Eosinophils Absolute Auto 0.1 K/mm3 (0-0.3); Hematocrit 39.7 % (37.0-47.0); Hemoglobin 12.3 g/dL (12.0-15.0); Immature Granulocyte Absolute 0.02 K/mm3 (0.00-0.031); Immature Granulocyte Percent A 0.4 % (0-0.5); Lymphocytes Absolute Auto 1.11 K/mm3 (0.9-3.2); Lymphocytes Percent Auto 24.5 % (18.3-44.2); Mean Corpuscular Hemoglobin 31.1 pg (26-34); Mean Corpuscular Volume 100.5 fl (80-100); Mean Platelet Volume 12.3 fl (7.4-10.4); Monocytes Absolute Auto 0.4 K/mm3 (0.1-0.6); Monocytes Percent Auto 8.4 % (2.6-8.5); Neutrophils Absolute Auto 2.9 K/mm3 (1.3-6.7); Platelet Count Result 267 k/mm3 (150-375); Red Blood Count 3.95 M/mm3 (4.2-5.4); Red Cell Distribution Width 14.1 % (11.5-14.5); White Blood Count 4.5 K/mm3 (4.5-10.0)
[2023-08-12 19:32] LABS: Iron 128 ug/dL (37-170)
[2023-08-12 19:41] LABS: Percent Iron Saturation 35 % (20-50)
[2023-08-12 20:05] LABS: Vitamin D 25 Hydroxy 69.6 ng/mL
[2023-08-12 20:10] LABS: Alanine Aminotransferase 20 U/L (6-35); Albumin Level 3.8 g/dL (3.5-5.1); Alkaline Phosphatase 74 U/L (38-126); Anion Gap 6 mmol/L (8-16); Aspartate Amino Transferase 33 U/L (14-36); Bilirubin,Total 0.7 mg/dL (0.2-1.3); Blood Urea Nitrogen 15 mg/dL (7-17); Calcium 9.2 mg/dL (8.4-10.2); Carbon Dioxide 29 mmol/L (22-30); Chloride 102 mmol/L (98-107); Cholesterol 160 mg/dL (0-200); Estimated Glomerular Filt Rate > 60; Glucose 132 mg/dL (65-110); HDL Direct 65 mg/dL; Potassium 4.3 mmol/L (3.4-5.0); Sodium 137 mmol/L (137-145); Triglycerides 76 mg/dL (<150)
[2023-08-12 20:20] LABS: LDL Cholesterol Direct 73 mg/dL
[2023-08-12 20:39] LABS: Creatinine Urine 51.6 mg/dL
[2023-08-12 20:54] LABS: MALB Creatinine Ratio < 11.6 mg/g (0-30); Microalbumin Urine Random < 6.0 mg/L (0-16.7)
[2023-08-12 21:16] LABS: Folic Acid > 20.0 ng/mL (2.76->20)
[2023-08-12 22:23] LABS: Hemoglobin A1C 6.5 % (<5.7)
== END 2023-08-12 08:09 | disposition home or self-care (01) ==
PROVIDERS: PCP Family Medicine; Visit Provider Family Medicine
DX: E78.5 Hyperlipidemia, unspecified (principal); D64.9 Anemia, unspecified; E11.9 Type 2 diabetes mellitus without complications; E03.9 Hypothyroidism, unspecified; E55.9 Vitamin D deficiency, unspecified
CPT/HCPCS: 36415; 80053; 80061; 82043; 82306; 82607; 82728; 82746; 83036; 83540; 83550; 84443; 85025

== ENCOUNTER 2024-01-15 10:16 | Outpatient (CLI) | payer MEDICARE, SELFPAY ==
--- NOTE | ~2024-01-15 | DEXA_ITS ---
Bone Density Report Name: MEREDITH ROD Age: 73 Sex: Female Ethnicity: White Date of : 1950 Indication: osteopenia; height loss; hysterectomy; postmenopausal Referring Provider: German Simmons Study: Bone densitometry was performed. Exam Date: January 15, 2024 Accession number: [id number] Bone Density: Region BMD T-score Z-score Classification AP Spine (L1-L4) 0.861 -1.7 0.5 Osteopenia Femoral Neck (Left) 0.655 -1.7 0.2 Osteopenia Total Hip (Left) 0.766 -1.4 0.2 Osteopenia Femoral Neck (Right) 0.591 -2.3 -0.4 Osteopenia Total Hip (Right) 0.741 -1.6 0.0 Osteopenia Total Hip Mean 0.754 -1.5 0.1 Osteopenia World Health Organization criteria for BMD impression classify patients as: Normal (T-score at or above -1.0), Osteopenia (T-score between -1.0 and -2.5), or Osteoporosis (T-score at or below -2.5). 10-year Fracture Risk(1): Major Osteoporotic Fracture 12% Hip Fracture 3.1% Reported Risk Factors: [place] (), Neck BMD=0.591, BMI=20.5 (1) FRAX(R) Version 3.08. Fracture probability calculated for an untreated patient. Fracture probability may be lower if the patient has received treatment. Previous Exams: Region Exam Age BMD T-score BMD Change BMD Change Date g/cm2 vs Baseline vs Previous AP Spine(L1-L4) 01/15/2024 73 0.861 -1.7 -0.169* -0.029* 09/05/2020 70 0.891 -1.4 -0.140* -0.130* 11/21/2009 59 1.021 -0.2 -0.009 -0.026* 10/27/2007 57 1.047 0.0 0.017 0.017 09/05/2005 55 1.030 -0.2 Total Hip(Left) 01/15/2024 73 0.766 -1.4 -0.193* -0.046* 09/05/2020 70 0.812 -1.1 -0.147* -0.134* 11/21/2009 59 0.947 0.0 -0.013 -0.018 10/27/2007 57 0.965 0.2 0.006 0.006 09/05/2005 55 0.959 0.1 Total Hip(Right) 01/15/2024 73 0.741 -1.6 -0.257* -0.069* 09/05/2020 70 0.811 -1.1 -0.188* -0.131* 11/21/2009 59 0.941 0.0 -0.057* -0.010 10/27/2007 57 0.952 0.1 -0.046* -0.046* 09/05/2005 55 0.998 0.5 *Denotes significance at 95% confidence level, LSC for AP Spine = 0.022 g/cm2, LSC for Total Hip = 0.027 g/cm2 Clinical Information Provided by Patient: Has used the following medications: Vitamin D, Calcium Has the following medical conditions: Hysterectomy Patient maximum height was 66 Menopause Age: 51 Does not regularly consume dairy products Onset of menses at age 18 Number of children 2 Impression: The patient has low bone mass, based on the Right Femoral Neck T-score. The patient has an estimated ten-year risk of hip fracture of 3.1% and an estimated ten-year risk of major fracture of 12%, based on the WHO FRAX algorithm. The BMD for the AP Spine(L1-L4) decreased, changing by -0.029 since the last DXA exam. The BMD for the Total Hip(Left) decreased, changing by -0.046 since the last DXA exam. The BMD for the Total Hip(Right) decreased, changing by -0.069 since the last DXA exam. Discussion: BONE DENSITY IS LOW AT ONE OR MORE SKELETAL SITES. THE PATIENT'S BMD AND CLINICAL RISK FACTORS CONTRIBUTE TO THIS PATIENT'S INCREASED RISK OF FRACTURE. This patient's lowest T-score is low at one or more skeletal sites. It meets the World Health Organization's (WHO) criteria for ?low bone mass? (T-score between -1.0 and -2.5). The patient's 10-year risk of hip fracture as calculated by FRAX exceeds the threshold where pharmacological therapy is recommended by the National Osteoporosis Foundation (NOF). However, all treatment decisions require clinical judgment and consideration of individual patient factors, including patient preferences, comorbidities, previous drug use, risk factors not captured in the FRAX model (e.g., frailty, falls, vitamin D deficiency, increased bone turnover, interval significant decline in bone density) and possible under or overestimation of fracture risk by FRAX. The patient should follow a healthful lifestyle (good nutrition with adequate calcium and vitamin D, and appropriate weight-bearing exercise). Follow-Up: Consider a repeat BMD and Vertebral Fracture Assessment (VFA) exam in 2 years or sooner if medically necessary, to reassess this patient's status. Reported by: YURIY on 01/15/2024 10:24:00 AM. Reviewed, dictated and finalized at location Kiko CLINE
== END 2024-01-15 10:17 ==
LOC: MICIMG 10:18
PROVIDERS: PCP Family Medicine; Visit Provider Family Medicine
DX: Z78.0 Asymptomatic menopausal state (principal); M85.88 Other specified disorders of bone density and structure, other site; M85.852 Other specified disorders of bone density and structure, left thigh; M85.851 Other specified disorders of bone density and structure, right thigh
CPT/HCPCS: 77080

== ENCOUNTER 2024-05-14 19:51 | Emergency (ER) | payer MEDICARE, SELFPAY ==
--- NOTE | ~2024-05-14 | CT_ITS ---
EXAMINATION: CT brain wo con DATE: 05/14/2024 20:24 INDICATION: Headache starting this evening. Patient had head trauma last week. TECHNIQUE: Computed tomography (CT) of the head was performed without intravenous contrast. The mA wa s adjusted according to patient size. Iterative reconstruction technique was employed. Exam dose: 68 1.00 mGy-cm total exam DLP. COMPARISON: 07/05/2022 CT brain FINDINGS: Bilateral vertebral and carotid siphon internal carotid artery calcifications. There is nonspecific diminished attenuation of the cerebral white matter, likely due to chronic small vessel ischemic changes. Moderate cerebral and cerebellar volume loss. No intracranial mass lesion or hemorrhage or cerebrovascular accident, midline shift or mass effect i s detected. No subdural or epidural hematoma. No fracture or bone destruction of the cranial vault. The mastoid air cells and included paranasal si nuses are normally developed and aerated. IMPRESSION: Cerebral atherosclerosis and chronic small vessel ischemic changes of the cerebral white matter No acute intracranial finding Reviewed, dictated and finalized at Location A. Reviewed, dictated and finalized at location J.
[2024-05-14 20:05] VITALS: BP 207/90; PULSE 62; RESP 18; TEMP 36.4; O2SAT 99
--- NOTE | 2024-05-14 20:07 | ECG_ITS ---
Test Date: 2024-05-14 20:09:29 Measurements Intervals [place] Rate: 65 P: 0 WV: 0 QRS: -38 QRSD: 86 T: 41 QT: 433 QTc: 453 Interpretive Statements SINUS RHYTHM WITH FIRST-DEGREE AV BLOCK MARKED LEFT AXIS DEVIATION [QRS AXIS < -30] NONSPECIFIC T-WAVE ABNORMALITY ABNORMAL ECG No previous ECG available for comparison Electronically Signed On 05-15-2024 08:41:23 CDT by Kadeem Gamble M.D.
--- NOTE | 2024-05-14 20:13 | ED.HA ---
HPI - Headache General Chief Complaint: Headache Stated Complaint: Headache sudden onset Time Seen by Provider: 05/14/24 20:04 Source: patient and family Mode of arrival: ambulatory Limitations: dementia History of Present Illness HPI Narrative: This is a 74 year old female that presents to the ER for a headache. Reports it started around 7PM. Reports it feels like a usual headache for her, but a little worse. Her family member reports she hit her head on a cabinet a week ago and is wondering if this is related. She does not take any blood thinners. Denies vision changes, vomiting, numbness or weakness. Related Data Home Medications Medication Instructions Recorded Confirmed ferrous sulfate 325 mg (65 mg 325 mg PO DAILY 05/01/22 08/11/23 iron) tablet (FeroSul) multivitamin 1 tablet PO DAILY 05/01/22 08/11/23 rivastigmine tartrate 6 mg capsule 6 mg PO BID 08/07/22 08/11/23 cholecalciferol (vitamin D3) 25 25 mcg PO DAILY 08/15/22 08/11/23 mcg (1,000 unit) chewable tablet aspirin 325 mg tablet 325 mg PO QHS 12/06/22 08/11/23 Allergies Allergy/AdvReac Type Severity Reaction Status Date / Time No Known Allergies Allergy Unknown Verified 12/01/23 09:16 Review of Systems Review of Systems: CONSTITUTIONAL: Denies fever EYES: Denies visual changes GASTROINTESTINAL: Denies vomiting NEUROLOGIC: Reports headache. Denies numbness, or weakness. All systems reviewed & are unremarkable except as noted in HPI and below PMFSH Past Medical History Medical History Dementia in Alzheimer's disease Environmental allergies Heart murmur Hyperlipidemia Osteopenia Paroxysmal atrial flutter (~07/2022) Postmenopausal Premature atrial contractions Recurrent intestinal obstruction Type 2 diabetes mellitus without complications Vitamin D deficiency Wenckebach pause (~07/2022) Surgical History Surgical History History of 2 sections 1983 and 1988. History of appendectomy History of ovarian cystectomy 1980s Family History Family History Mother Family history of malignant neoplasm of breast in first degree relative Social History Social History (Updated 12/01/23 @ 09:18 by Laurie Casillas [facility]) Social History: The patient lives in [place] with her . 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 She has 2 children Lifelong nonsmoker. No alcohol or illicit substance abuse. Surrogate medical decision maker: Rodolfo Gomez, spouse. Code status: Full code. Smoking status: Never smoker Alcohol intake: never Substance use: never Do You Feel Safe in your Home?: Yes Lack of Transportation: No Lack of Food: Never True Current Housing: I Have Housing Concerned About Future Housing: No Difficulty Paying Gas/Electric Bills: No Difficulty Paying for Meds: No Currently Unemployed: No Education: High School Diploma/GED Difficulty w/ Childcare or Family Care: No Living arrangements: with family Occupation/Education: retired Gender identity (if verbalized by the patient): Female Sexual Orientation (if Verbalized by the Patient): Straight or Heterosexual Spiritual care concerns: No Agree to blood products: Yes Exam Narrative: GENERAL: Well-appearing, well-nourished, and in no acute distress. HEAD: Normocephalic. old bruising to the forehead EYES: PERRLA and EOMI. ENT: Nares clear, no rhinorrhea or epistaxis. Mucous membranes moist. Oropharynx without tonsillar hypertrophy exudate or other lesions. Bilateral TMs pearly nuñez non-bulging NECK: Supple. No adenopathy or masses. CHEST: Clear to auscultation. No respiratory distress. No wheezes rales or rhonchi HEART: Regular rate and rhythm. No murmur heard. Normal peripheral pulses. EXTREMITIES: Normal range of motion. No edema. strength equal in bilateral upper and l
[2024-05-14 20:23] LABS: Basophils Percent Auto 0.2 % (0.2-1.2); Eosinophils Absolute Auto 0.1 K/mm3 (0-0.3); Eosinophils Percent Auto 2.3 % (0-4.4); Hematocrit 38.6 % (37.0-47.0); Hemoglobin 12.6 g/dL (12.0-15.0); Immature Granulocyte Absolute 0.02 K/mm3 (0.00-0.031); Immature Granulocyte Percent A 0.4 % (0-0.5); Lymphocytes Absolute Auto 1.67 K/mm3 (0.9-3.2); Lymphocytes Percent Auto 31.9 % (18.3-44.2); Mean Corpuscular HGB Conc 32.6 g/dl (32-36); Mean Corpuscular Hemoglobin 31.6 pg (26-34); Mean Corpuscular Volume 96.7 fl (80-100); Mean Platelet Volume 11.7 fl (7.4-10.4); Monocytes Absolute Auto 0.6 K/mm3 (0.1-0.6); Monocytes Percent Auto 11.1 % (2.6-8.5); Neutrophils Absolute Auto 2.8 K/mm3 (1.3-6.7); Neutrophils Percent Auto 54.1 % (45.5-73.1); Platelet Count Result 250 k/mm3 (150-375); Red Blood Count 3.99 M/mm3 (4.2-5.4); Red Cell Distribution Width 13.1 % (11.5-14.5); White Blood Count 5.2 K/mm3 (4.5-10.0)
[2024-05-14 20:44] LABS: Alanine Aminotransferase 18 U/L (6-35); Albumin Level 3.9 g/dL (3.5-5.1); Alkaline Phosphatase 90 U/L (38-126); Anion Gap 9 mmol/L (4-12); Aspartate Amino Transferase 25 U/L (14-36); Bilirubin,Total 0.2 mg/dL (0.2-1.3); Blood Urea Nitrogen 15 mg/dL (7-17); Calcium 9.2 mg/dL (8.4-10.2); Carbon Dioxide 27 mmol/L (22-30); Chloride 101 mmol/L (98-107); Estimated Glomerular Filt Rate > 60; Glucose 151 mg/dL (65-110); Potassium 3.3 mmol/L (3.4-5.0); Sodium 137 mmol/L (137-145)
[2024-05-14 20:57] LABS: Prothrombin Time 14.1 Seconds (11.1-14.7)
[2024-05-14 20:58] LABS: Partial Thromboplastin Time 25.4 Seconds (22.3-36.8)
[2024-05-14] MEDS: ACETAMINOPHEN 500 MG TABLET 1000 MG PO (21:02)
[2024-05-14] MEDS: POTASSIUM CHLORIDE 20 MEQ ER TABLET 40 MEQ PO (21:04)
[2024-05-14 21:13] LABS: Magnesium 2.3 mg/dL (1.6-2.3)
[2024-05-14 23:07] VITALS: BP 136/72; PULSE 55; RESP 18; O2SAT 100
== END 2024-05-14 23:08 | disposition home or self-care (01) ==
PROVIDERS: Emergency Provider Physician Assistant; PCP Family Medicine
DX: R51.9 Headache, unspecified (principal); R03.0 Elevated blood-pressure reading, without diagnosis of hypertension; E87.6 Hypokalemia; G30.9 Alzheimer's disease, unspecified; F02.80 Dementia in other diseases classified elsewhere, unspecified severity, without behavioral disturbance, psychotic disturbance, mood disturbance, and anxiety; E11.9 Type 2 diabetes mellitus without complications; E78.5 Hyperlipidemia, unspecified
CPT/HCPCS: 36415; 70450; 80053; 83735; 85025; 85610; 85730; 93005; 99284; A9270

== ENCOUNTER 2024-05-19 09:01 | Outpatient (CLI) | payer MEDICARE, SELFPAY ==
[2024-05-19 14:01] LABS: Hemoglobin A1C 6.9 % (<5.7)
[2024-05-19 14:13] LABS: Alanine Aminotransferase 16 U/L (6-35); Albumin Level 3.9 g/dL (3.5-5.1); Alkaline Phosphatase 79 U/L (38-126); Anion Gap 6 mmol/L (4-12); Aspartate Amino Transferase 54 U/L (14-36); Bilirubin,Total 0.2 mg/dL (0.2-1.3); Blood Urea Nitrogen 17 mg/dL (7-17); Calcium 9.6 mg/dL (8.4-10.2); Carbon Dioxide 31 mmol/L (22-30); Chloride 102 mmol/L (98-107); Estimated Glomerular Filt Rate > 60; Glucose 131 mg/dL (65-110); Potassium 4.1 mmol/L (3.4-5.0); Sodium 139 mmol/L (137-145)
[2024-05-19 15:27] LABS: Thyroid Stimulating Hormone Reflex 0.921 uIU/mL (0.465-4.68)
== END 2024-05-19 09:02 | disposition home or self-care (01) ==
LOC: ANHGOSHLAB 09:03
PROVIDERS: PCP Family Medicine; Visit Provider Family Medicine
DX: E11.9 Type 2 diabetes mellitus without complications (principal); E03.9 Hypothyroidism, unspecified; I10 Essential (primary) hypertension
CPT/HCPCS: 36415; 80053; 83036; 84443

== ENCOUNTER 2024-07-04 08:56 | Emergency (ER) | payer MEDICARE, SELFPAY ==
--- NOTE | ~2024-07-04 | XR_ITS ---
Left Hand Technique: PA, oblique, and lateral views were obtained. Clinical History: Pain Findings: No acute fracture or dislocation is seen. Osseous alignment is anatomic. Joint spaces are p reserved. Soft tissues are unremarkable. Impression: Unremarkable left hand. Reviewed, dictated and finalized at location M. Impression: Unremarkable left hand.
[2024-07-04 09:05] VITALS: BP 154/71; PULSE 74; RESP 16; TEMP 36.4; O2SAT 98
--- NOTE | 2024-07-04 10:07 | ED.UPPEXIN ---
HPI - Extremity Injury (Upper) General Chief Complaint: Extremity Injury, Upper Stated Complaint: finger injury Time Seen by Provider: 07/04/24 09:09 Source: patient Mode of arrival: ambulatory Limitations: no limitations History of Present Illness HPI narrative: Patient is a 74-year-old female who presents the ED with report of left finger injuries. patient reports she was walking on the bike trail and the sun was shining directly into her eyes causing her to trip and fall. She attempted to catch herself with her left hand. Sustained lacerations to the flexor surfaces of the 3rd and 4th digits. Complains of pain to her 3rd through 5th digits. Denies any dizziness, lightheadedness, syncope, head injury. Denies any other injuries or areas of pain. Denies numbness or tingling. Tetanus up-to-date. Related Data Home Medications Medication Instructions Recorded Confirmed ferrous sulfate 325 mg (65 mg 325 mg PO DAILY 05/01/22 06/23/24 iron) tablet (FeroSul) multivitamin 1 tablet PO DAILY 05/01/22 06/23/24 rivastigmine tartrate 6 mg capsule 6 mg PO BID 08/07/22 06/23/24 cholecalciferol (vitamin D3) 25 25 mcg PO DAILY 08/15/22 06/23/24 mcg (1,000 unit) chewable tablet aspirin 325 mg tablet 325 mg PO QHS 12/06/22 06/23/24 loratadine 10 mg tablet (Claritin) 10 mg PO DAILY PRN 05/19/24 06/23/24 sotalol 80 mg tablet 40 mg PO BID 05/19/24 06/23/24 Allergies Allergy/AdvReac Type Severity Reaction Status Date / Time No Known Allergies Allergy Unknown Verified 07/04/24 09:07 Review of Systems Review of Systems: All systems reviewed & are unremarkable except as noted in HPI. All systems reviewed & are unremarkable except as noted in HPI and below PMFSH Past Medical History Medical History Dementia in Alzheimer's disease Environmental allergies Heart murmur Hyperlipidemia Osteopenia Paroxysmal atrial flutter (~07/2022) Postmenopausal Premature atrial contractions Recurrent intestinal obstruction Type 2 diabetes mellitus without complications Vitamin D deficiency Wenckebach pause (~07/2022) Surgical History Surgical History History of 2 sections 1983 and 1988. History of appendectomy History of ovarian cystectomy 1980s Family History Family History Mother Family history of malignant neoplasm of breast in first degree relative Social History Social History Social History: The patient lives in [place] with her . 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 She has 2 children Lifelong nonsmoker. No alcohol or illicit substance abuse. Surrogate medical decision maker: Rodolfo Patricia, spouse. Code status: Full code. Smoking status: Never smoker Alcohol intake: never Substance use: never Do You Feel Safe in your Home?: Yes Lack of Transportation: No Lack of Food: Never True Current Housing: I Have Housing Concerned About Future Housing: No Difficulty Paying Gas/Electric Bills: No Difficulty Paying for Meds: No Currently Unemployed: No Education: High School Diploma/GED Difficulty w/ Childcare or Family Care: No Living arrangements: with family Occupation/Education: retired Gender identity (if verbalized by the patient): Female Sexual Orientation (if Verbalized by the Patient): Straight or Heterosexual Spiritual care concerns: No Agree to blood products: Yes Exam Narrative: GENERAL: Well appearing, thin, non-toxic, in no acute distress. HEAD: Normocephalic, atraumatic. RESPIRATORY: Airway patent, respirations nonlabored. CARDIOVASCULAR: Regular rate and rhythm. Radial pulses strong and easily palpable. MUSCULOSKELETAL: Moves all extremities. Full range of motion of left hand finger flexion and extension. L
== END 2024-07-04 12:23 | disposition home or self-care (01) ==
PROVIDERS: Emergency Provider Physician Assistant; PCP Family Medicine
DX: S61.213A Laceration without foreign body of left middle finger without damage to nail, initial encounter (principal); S61.215A Laceration without foreign body of left ring finger without damage to nail, initial encounter; S63.619A Unspecified sprain of unspecified finger, initial encounter; G30.9 Alzheimer's disease, unspecified; F02.80 Dementia in other diseases classified elsewhere, unspecified severity, without behavioral disturbance, psychotic disturbance, mood disturbance, and anxiety; I48.92 Unspecified atrial flutter; E78.5 Hyperlipidemia, unspecified; E11.9 Type 2 diabetes mellitus without complications; E55.9 Vitamin D deficiency, unspecified; M85.80 Other specified disorders of bone density and structure, unspecified site; Z79.82 Long term (current) use of aspirin; Z79.84 Long term (current) use of oral hypoglycemic drugs; Z79.899 Other long term (current) drug therapy; W01.0XXA Fall on same level from slipping, tripping and stumbling without subsequent striking against object, initial encounter
CPT/HCPCS: 12002; 73130; 99283; J2003

== ENCOUNTER 2024-08-15 07:59 | Outpatient (CLI) | payer MEDICARE, SELFPAY ==
[2024-08-15 21:27] LABS: Creatinine Urine 96.1 mg/dL
[2024-08-15 21:30] LABS: Microalbumin Urine Random 11.5 mg/L (0-16.7)
[2024-08-15 21:59] LABS: Hemoglobin A1C 6.5 % (<5.7)
[2024-08-15 22:42] LABS: Vitamin D 25 Hydroxy 52.3 ng/mL
[2024-08-16 06:05] LABS: Alanine Aminotransferase 26 U/L (6-35); Albumin Level 3.9 g/dL (3.5-5.1); Alkaline Phosphatase 78 U/L (38-126); Anion Gap 9 mmol/L (4-12); Aspartate Amino Transferase 44 U/L (14-36); Bilirubin,Total 0.6 mg/dL (0.2-1.3); Blood Urea Nitrogen 19 mg/dL (7-17); Calcium 9.4 mg/dL (8.4-10.2); Carbon Dioxide 28 mmol/L (22-30); Chloride 104 mmol/L (98-107); Cholesterol 154 mg/dL (0-200); Estimated Glomerular Filt Rate > 60; Glucose 120 mg/dL (65-110); HDL Direct 74 mg/dL; Potassium 4.7 mmol/L (3.4-5.0); Sodium 141 mmol/L (137-145); Triglycerides 70 mg/dL (<150)
[2024-08-16 06:17] LABS: LDL Cholesterol Direct 59 mg/dL
== END 2024-08-15 08:00 | disposition home or self-care (01) ==
LOC: ANHGOSHLAB 08:00
PROVIDERS: PCP Family Medicine; Visit Provider Family Medicine
DX: E78.5 Hyperlipidemia, unspecified (principal); E11.9 Type 2 diabetes mellitus without complications; E53.8 Deficiency of other specified B group vitamins; E55.9 Vitamin D deficiency, unspecified; I10 Essential (primary) hypertension
CPT/HCPCS: 36415; 80053; 80061; 82043; 82306; 82607; 83036; 84443; 85025

== ENCOUNTER 2024-08-16 10:00 | Outpatient (CLI) | payer MEDICARE, SELFPAY ==
[2024-08-16 13:47] LABS: Basophils Percent Auto 0.3 % (0.2-1.2); Eosinophils Absolute Auto 0.1 K/mm3 (0-0.3); Eosinophils Percent Auto 0.8 % (0-4.4); Hematocrit 36.1 % (37.0-47.0); Hemoglobin 11.1 g/dL (12.0-15.0); Immature Granulocyte Absolute 0.03 K/mm3 (0.00-0.031); Immature Granulocyte Percent A 0.3 % (0-0.5); Lymphocytes Absolute Auto 0.96 K/mm3 (0.9-3.2); Lymphocytes Percent Auto 11.2 % (18.3-44.2); Mean Corpuscular HGB Conc 30.7 g/dl (32-36); Mean Corpuscular Volume 100.8 fl (80-100); Monocytes Absolute Auto 0.5 K/mm3 (0.1-0.6); Monocytes Percent Auto 6.3 % (2.6-8.5); Neutrophils Percent Auto 81.1 % (45.5-73.1); Platelet Count Result 304 k/mm3 (150-375); Red Blood Count 3.58 M/mm3 (4.2-5.4); Red Cell Distribution Width 14.8 % (11.5-14.5); White Blood Count 8.6 K/mm3 (4.5-10.0)
== END 2024-08-16 10:01 | disposition home or self-care (01) ==
PROVIDERS: PCP Family Medicine; Visit Provider Family Medicine
DX: E11.9 Type 2 diabetes mellitus without complications (principal); I10 Essential (primary) hypertension
CPT/HCPCS: 36415; 85025

== ENCOUNTER 2024-10-21 10:00 | Outpatient (RCR) | payer MEDICARE, SELFPAY ==
--- NOTE | 2024-08-19 09:45 | OTOPEVAL1 ---
Assessment and note entered by Giorgio Arellano, MIGUEL/Shruti, MACKT OT Evaluation Information 08/19/24 Assessment Status Evaluation Diagnosis Stiffness of left hand ICD-10 Condition Codes (OT) M25.642 Subjective Information Patient's present with patient today and provides history, he reports she doesn't have the best memory. He reports she fell on 07/04/24 and had an open laceration on the palmar surface of left digits III and IV at P1/PIP joint area. X- rays did not show any acute fracture. She was sutured in the ER. Suture removal 07/18. states he was having her take it easy and trying not to use her hand and her hand has became stiff . She reports being unable to make a fist. Difficulties gripping, lifting, and hand use. She is right handed. Reported Pain Level Pain Score 0: Self Report Additional Pain Score Comments No pain at rest. No pain with active ROM. Pain increased to 5/10 with passive ROM. Assessment OT Clinical Summary Patient referred to OT with a decline in left hand use following a fall where she sustained a laceration to the palmar surface of digits III and IV. She presents with residual stiffness, weakness, and pain that inhibits her ability to make a functional fist and record systems analyst objects during ADLs. Skilled OT indicated for use of modalities, HEP instruction/progression, and therapeutic exercise to facilitate optimal functional use of her left hand. Plan of Care Interventions Therapeutic Exercise,Manual Therapy,Therapeutic Activities,Hot Pack/Cold Pack,Paraffin OT Services Indicated Yes Treatment Frequency and 2x/week for 7 visits Duration These treatments will address the objective and functional deficits as defined above. The patient will be advanced safely and appropriately in order for the patient to progress towards his/her prior level of function. Additional exercises will be introduced and as well as a comprehensive home exercise program upon discharge, if needed, ?to ensure carryover of functional gains achieved in the clinic. This treatment plan has been reviewed and agreement upon by the patient.
--- NOTE | 2024-08-19 09:46 | OPREHPOC ---
Outpatient Therapy Plan of Care This is a Multidisciplinary Plan of Care that may contain components documented by all disciplines (PT, OT, and ST.) OT Problem 1 OT Problem #1 Knowledge Deficit OT Goal 1 Goal / Goal Update Patient/spouse to be indep. with HEP. Target Visit 7 OT Problem 2 OT Problem #2 Impaired Range of Motion OT Goal 1 Goal / Goal Update Patient to increase active ROM of the left hand to improve surveyor geodetic for ADLs: - be able to touch digits III-V to the palm when trying to make a fist - measure <2 cm gap with hook fist for digits III- V Target Visit 7 OT Problem 3 OT Problem #3 Impaired Strength OT Goal 1 Goal / Goal Update Patient to increase left surveyor geodetic strength as measured by being able to complete surveyor geodetic/pinch strengthening with yellow putty x5 minutes. Target Visit 7
--- NOTE | 2024-09-22 11:57 | OTOPPROG ---
Assessment and note entered by Giorgio Arellano, OTR/Shruti, CHT OT Progress Update 09/22/24 Diagnosis Stiffness of left hand Subjective Information Patient reports she feels like she is making good progress. She is using her hand for ADLs and cooking tasks. She is now able to use the can scrap kettle tender. She is reporting less pain, no pain at rest, and slight increase in discomfort with passive ROM exercises. ROM: - composite fist has returned to functional limits (she is able to touch finger tips to her palm) this improved from 5-6 cm gaps with digits III-V - hook fist has progressed from 4-5 cm gap between finger tips and DPC to 2 cm gap with digits II-V Strength: - (R) shredded filler hopper feeder 48 lbs. - (L) shredded filler hopper feeder 41 lbs. Assessment OT Clinical Summary Patient referred to OT with a decline in left hand use following a fall where she sustained a laceration to the palmar surface of digits III and IV. She has made excellent progress with therapy so far, improving to regaining a functional fist. She continues to have finger stiffness that limits a tight fist and a functional hook fist (IP flexibility). She has progressed to 41 lbs. of shredded filler hopper feeder strength on the left hand as well (norm 45 lbs.). Continued skilled OT indicated for continued use of modalities, HEP progression, and therapeutic exercise to facilitate optimal functional use of her left hand. Plan of Care Interventions Therapeutic Exercise,Manual Therapy,Therapeutic Activities,Hot Pack/Cold Pack,Paraffin OT Services Indicated Yes Treatment Frequency and 1x/week for 4 visits Duration These treatments will address the objective and functional deficits as defined above. The patient will be advanced safely and appropriately in order for the patient to progress towards his/her prior level of function. Additional exercises will be introduced and as well as a comprehensive home exercise program upon discharge, if needed, ?to ensure carryover of functional gains achieved in the clinic. This treatment plan has been reviewed and agreement upon by the patient.
--- NOTE | 2024-09-22 11:57 | OPREHPOC ---
Outpatient Therapy Plan of Care This is a Multidisciplinary Plan of Care that may contain components documented by all disciplines (PT, OT, and ST.) OT Problem 1 OT Problem #1 Knowledge Deficit OT Goal 1 Goal / Goal Update Patient/spouse to be indep. with HEP. ---OT POC UPDATE 09/22/24--- Met, continue as HEP is progressed Target Visit 11 OT Problem 2 OT Problem #2 Impaired Range of Motion OT Goal 1 Goal / Goal Update Patient to increase active ROM of the left hand to improve bookmobile librarian for ADLs: - be able to touch digits III-V to the palm when trying to make a fist - measure <2 cm gap with hook fist for digits III- V ---OT POC UPDATE 09/22/24--- - Met, continue as HEP is progressed - measuring 2 cm gap this date, continue to < 2 cm Target Visit 11 OT Problem 3 OT Problem #3 Impaired Strength OT Goal 1 Goal / Goal Update Patient to increase left bookmobile librarian strength as measured by being able to complete bookmobile librarian/pinch strengthening with yellow putty x5 minutes. ---OT POC UPDATE 09/22/24--- Met, upgrade goal: Increase left bookmobile librarian strength from 41 to 46 lbs. Target Visit 11
--- NOTE | 2024-10-21 10:54 | OTOPDC ---
Assessment and note entered by Giorgio Arellano, MIGUEL/Shruti, CHT OT Discharge Summary 10/21/24 Diagnosis Stiffness of left hand ICD-10 Condition Codes (OT) Joint stiffness of left hand M25.642 Subjective Information Patient reports she feels like she is making good progress. She reports no functional limitations. No pain at rest and no pain with active ROM. L hand ROM: - composite fist has returned to functional limits - hook fist has progressed from 2 cm gap to no gap with index and 1 cm gap with small finger; middle and ring fingers continue to measure 2 cm gaps Strength: - (R) flight operation coordinator 50 lbs. - (L) flight operation coordinator 45 lbs. Assessment OT Clinical Summary Patient referred to OT with a decline in left hand use following a fall where she sustained a laceration to the palmar surface of digits III and IV. She has progressed to being able to make a functional fist. She continues to have residual IP joint stiffness that restricts return of a hook fist, but she has progressed to 1-2 cm gap with a hook fist. Organic Extractions Technician has returned to functional limits at 45 lbs. Reviewed HEP with patient and her spouse. No further skilled OT indicated at this time. Plan of Care OT Services Indicated No
== END 2024-10-21 12:59 | disposition home or self-care (01) ==
LOC: ANHOT 10:00
PROVIDERS: PCP Family Medicine; Visit Provider Family Medicine
DX: M25.642 Stiffness of left hand, not elsewhere classified (principal)
CPT/HCPCS: 97018; 97110; 97140; 97165; 97530

== ENCOUNTER 2024-10-25 12:32 | Outpatient (CLI) | payer MEDICARE, SELFPAY ==
--- NOTE | ~2024-10-25 | MM_ITS ---
EXAMINATION: MM screening reuben BI w radha HISTORY: Screening TECHNIQUE: Craniocaudal and mediolateral oblique 3-D tomosynthesis images were obtained and synthetic 2-D images were generated. CAD analysis was submitted and interpreted. COMPARISON: Comparison to multiple prior studies sequentially, with oldest reviewed study dated 05/2020. BREAST PARENCHYMAL COMPOSITION: Not dense: There are scattered areas of fibroglandular density. FINDINGS: There is no evidence of suspicious mass, calcification, or architectural distortion to sugg est malignancy in either breast. There has been no suspicious interval change. IMPRESSION: 1. No mammographic evidence of malignancy. 2. Recommend routine screening mammography in one year. BI-RADS Category 1: Negative Reviewed, dictated and finalized at location A. ASSEMBLER
== END 2024-10-25 12:33 | disposition home or self-care (01) ==
LOC: MICIMG 12:32
PROVIDERS: PCP Family Medicine; Visit Provider Family Medicine
DX: Z12.31 Encounter for screening mammogram for malignant neoplasm of breast (principal)
CPT/HCPCS: 77063; 77067

== ENCOUNTER 2025-02-16 09:40 | Outpatient (CLI) | payer MEDICARE, SELFPAY ==
--- OUTSIDE RECORDS SUMMARY | 2025-02-16 09:43 | XMS_ITS | Continuity of Care Document ---
Author Organization Formerly [facility] Address [address] [place] [address] [address] [place] [address] Phone Care Team Providers Care Physical Fitness Teacher Name Role Phone Elise OD, Vinh Unavailable Unavailable Advance Directives Directive Yes / No Effective Date File Name No Information Encounters Encounter Description Practice Location Reason(s) For Visit Diagnoses Date Provider Providers Copied on Encounter [facility], [address] [place], [id number], [place] tel:[phone] [facility] No Information 4-200 5 Elise OD Vinh. [address] , [address], [place], [address], [place]. tel:[phone] Family History Family Member Type Diagnosis Age At Onset No Information Payers Payer name Insurance type Covered republican ID Authoriza tion(s) No Information Social History Type Description Quantity Date Captured Comments Sex Female Smoking Status No Information Chief Complaint And Reason For Visit No Information Reason For Referral Reason For Referral No Information History Of Present Illness Encounter Date Complaint History Of Prese nt Illness No Information Functional Status Date Functional Assessmen t No Information Instructions Date Instruction Additional Infor mation No Information Assessments Type Assessment Date No Information Patient Care Teams Name Effective Dates (start - stop) Status Members No Information
--- OUTSIDE RECORDS SUMMARY | 2025-02-16 09:43 | XMS_ITS | Referral Summary ---
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) from Last 3 Months Allergies Active Allergy Reactions Criticality Noted Date Comments Donepezil Other (See comments) High 11/28/2021 Muscle cramps Medications pravastatin (PRAVACHOL) 20 mg tablet 06/18/2021 Active levothyroxine (SYNTHROID) 75 mcg tablet 06/24/2021 Active multivitamin tablet,chewable Take by mouth Active sotaloL (BETAPACE) 80 mg tablet TAKE 1/2 TABLET BY MOUTH EVERY 12 HOURS 11/12/2022 Active cholecalciferol (VITAMIN D-3) 1,000 unit capsule 09/11/2022 Active ferrous sulfate (Iron, ferrous sulfate,) 325 mg (65 mg of elemental iron) tablet Active aspirin 325 mg tablet 11/22/2022 Active metFORMIN XR (GLUCOPHAGE XR) 500 mg 24 hr tablet Take 1 tablet (500 mg total) by mouth nightly 11/22/2024 Active rivastigmine (EXELON) 6 mg capsuleIndicati ons:Alzheimer's disease (HCC) Take 1 capsule (6 mg total) by mouth 2 (two) times a day 180 capsule 1 11/30/2024 Active Active Problems No known active problems Social History Tobacco Use Types Packs/Day Years Used Date Smoking Tobacco: Never Smokeless Tobacco: Never Tobacco Cessation:Counseling Given: Not Answered Comments Unknown Sex and Gender Information Value Date Recorded Sex Assigned at Not on file Legal Sex Female 12:36 PM CDT Gender Identity Not on file Sexual Orientation Not on file Last Filed Vital Signs Vital Sign Reading Time Taken Comments Blood Pressure 136/68 11/30/2024 9:51 AM CADDY/CADDIE SUPERVISOR Pulse 66 11/30/2024 9:51 AM CADDY/CADDIE SUPERVISOR Temperature 37.9 C (100.2 F) 06/10/2023 10:01 AM CDT Respiratory Rate 18 11/30/2024 9:51 AM CADDY/CADDIE SUPERVISOR Oxygen Saturation 99% 11/30/2024 9:51 AM CADDY/CADDIE SUPERVISOR Inhaled Oxygen Concentration - - Weight 63.1 kg (139 lb 3.2 oz) 11/30/2024 9:51 A M CADDY/CADDIE SUPERVISOR Height 162.6 cm (5' 4 ) 11/30/2024 9:51 AM CADDY/CADDIE SUPERVISOR Body Mass Index 23.89 11/30/2024 9:51 AM CADDY/CADDIE SUPERVISOR Plan of Treatment Not on [place] [address] [facility] AETNA SENIOR SUPPLEMENT [place] [id number] MEDICARE AETNA SENIOR SUPPLEMENT Care Teams Nuisance Animal Damage Control Agent Relationship Specialty Start Date End Date Aria Simmons MD PCP - General Family Practice 08/06/21
--- OUTSIDE RECORDS SUMMARY | 2025-02-16 09:43 | XMS_ITS | Clinical Summary ---
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) from Last 3 Months Social History Tobacco Use Types Packs/Day Years Used Date Smoking Tobacco: Never Smokeless Tobacco: Never Tobacco Cessation:Counseling Given: Not Answered Comments Unknown Sex and Gender Information Value Date Recorded Sex Assigned at Not on file Legal Sex Female 12:36 PM CDT Gender Identity Not on file Sexual Orientation Not on file Obstetrics History Last Filed Vital Signs Vital Sign Reading Time Taken Comments Blood Pressure 136/68 11/30/2024 9:51 AM TRANSPORTATION BROKER Pulse 66 11/30/2024 9:51 AM TRANSPORTATION BROKER Temperature 37.9 C (100.2 F) 06/10/2023 10:01 AM CDT Respiratory Rate 18 11/30/2024 9:51 AM TRANSPORTATION BROKER Oxygen Saturation 99% 11/30/2024 9:51 AM TRANSPORTATION BROKER Inhaled Oxygen Concentration - - Weight 63.1 kg (139 lb 3.2 oz) 11/30/2024 9:51 A M TRANSPORTATION BROKER Height 162.6 cm (5' 4 ) 11/30/2024 9:51 AM TRANSPORTATION BROKER Body Mass Index 23.89 11/30/2024 9:51 AM TRANSPORTATION BROKER Plan of Treatment Health Maintenance Due Date Last Done Comments Breast Cancer Screening-Mammogram 1950 Colon Cancer Screening-Colonoscopy 1950 Depression Screening 1950 Hepatitis C Screening 1950 Osteoporosis Screening-Bone Density Scan 1950 DTaP/Tdap/Td Vaccine (1 - Tdap) 01/20/1963 Hepatitis B Screening 01/20/1970 Zoster Vaccine (1 of 2) 01/20/2002 Well Visit 65+ 01/20/2017 Pneumococcal vaccine 65+ (3 of 3 - PCV20 or PCV21) 07/19/2020 07/19/2015, 07/31/2013 Covid-19 Vaccine (4 - 2023-2 5 season) 2024 07/19/2021, 12/11/2020, 11/20/2020 Influenza Vaccine (Season Ended) 2025 06/18/2021, 06/14/2020, 06/22/2019, Additional history exists Fall Risk Assessment 11/30/2025 11/30/2024, 06/02/2024, 12/16/2023, Additional history exists Insurance MEDICARE AETNA AET SENIOR [facility] MEDICARE AETNA SENIOR SUPPLEMENT Care Teams Linen Worker Relationship Specialty Start Date End Date Aria Simmons MD PCP - General Family Practice 08/06/21
[2025-02-16 11:42] LABS: Basophils Percent Auto 0.4 % (0.2-1.2); Eosinophils Absolute Auto 0.1 K/mm3 (0-0.3); Eosinophils Percent Auto 2.7 % (0-4.4); Hematocrit 42.1 % (37.0-47.0); Hemoglobin 12.9 g/dL (12.0-15.0); Immature Granulocyte Absolute 0.01 K/mm3 (0.00-0.031); Immature Granulocyte Percent A 0.2 % (0-0.5); Lymphocytes Absolute Auto 1.03 K/mm3 (0.9-3.2); Lymphocytes Percent Auto 21.1 % (18.3-44.2); Mean Corpuscular HGB Conc 30.6 g/dl (32-36); Mean Corpuscular Hemoglobin 29.1 pg (26-34); Mean Platelet Volume 11.9 fl (7.4-10.4); Monocytes Absolute Auto 0.4 K/mm3 (0.1-0.6); Monocytes Percent Auto 8.6 % (2.6-8.5); Neutrophils Absolute Auto 3.3 K/mm3 (1.3-6.7); Platelet Count Result 272 k/mm3 (150-375); Red Blood Count 4.43 M/mm3 (4.2-5.4); Red Cell Distribution Width 15.1 % (11.5-14.5); White Blood Count 4.9 K/mm3 (4.5-10.0)
[2025-02-16 11:56] LABS: Alanine Aminotransferase 18 U/L (6-35); Albumin Level 3.9 g/dL (3.5-5.1); Alkaline Phosphatase 73 U/L (38-126); Anion Gap 5 mmol/L (4-12); Aspartate Amino Transferase 34 U/L (14-36); Bilirubin,Total 0.4 mg/dL (0.2-1.3); Blood Urea Nitrogen 18 mg/dL (7-17); Calcium 9.5 mg/dL (8.4-10.2); Carbon Dioxide 32 mmol/L (22-30); Chloride 105 mmol/L (98-107); Estimated Glomerular Filt Rate > 60; Glucose 119 mg/dL (65-110); Iron 86 ug/dL (37-170); Potassium 4.5 mmol/L (3.4-5.0); Sodium 142 mmol/L (137-145)
[2025-02-16 12:08] LABS: Percent Iron Saturation 21 % (20-50)
[2025-02-16 12:14] LABS: Creatinine Urine 35.1 mg/dL
[2025-02-16 12:20] LABS: MALB Creatinine Ratio 20.5 mg/g (0-30); Microalbumin Urine Random 7.2 mg/L (0-16.7)
[2025-02-16 12:45] LABS: Hemoglobin A1C 7.2 % (<5.7)
[2025-02-16 13:02] LABS: Folic Acid > 20.0 ng/mL (2.76->20)
== END 2025-02-16 09:41 | disposition home or self-care (01) ==
LOC: ANHGOSHLAB 09:40
PROVIDERS: PCP Family Medicine; Visit Provider Family Medicine
DX: D64.9 Anemia, unspecified (principal); I10 Essential (primary) hypertension; E03.9 Hypothyroidism, unspecified; E11.9 Type 2 diabetes mellitus without complications
CPT/HCPCS: 36415; 80053; 82043; 82607; 82728; 82746; 83036; 83540; 83550; 84443; 85025

== ENCOUNTER 2025-04-22 01:11 | Emergency (ER) | payer MEDICARE, SELFPAY ==
--- NOTE | ~2025-04-22 | CT_ITS ---
History: Fall PROCEDURE: CT cervical spine without intravenous contrast. COMPARISON: None TECHNIQUE: Multiple contiguous axial images of the cervical spine were performed without the administration of i ntravenous contrast. DLP: 105 mGy-cm FINDINGS: Significant degenerative disease is identified, most prominent at the levels of C5/C6 and C6/C7. No acute fractures are present. Biapical scarring. No soft tissue abnormality is appreciated. The airway is patent. Impression: Significant degenerative disease, without acute fracture. Reviewed, dictated and finalized at location A. Impression: Significant degenerative disease, without acute fracture.
--- NOTE | ~2025-04-22 | CT_ITS ---
History: Fall PROCEDURE: CT head without contrast. COMPARISON: 05/14/2024 TECHNIQUE: Axial imaging of the head performed from the skull base to the vertex without IV contrast. Sagittal a nd coronal reformations obtained. DLP: 681 mGy-cm FINDINGS: The ventricles are enlarged. The dilatation of the ventricles is proportional to the degree of sulcal prominence, not uncommon in the senescent brain. Decreased attenuation is identified within the periventricular white matter, likely secondary to micr ovascular ischemic disease, in a patient of this age. There is no mass, mass effect or midline shift. There is no abnormal extra-axial fluid collection or intracranial hemorrhage. Visualized paranasal sinuses are clear. The mastoid air cells are well aerated. No acute displaced fractures within the overlying cranium. Impression: No acute intracranial hemorrhage or suspicious mass effect. Reviewed, dictated and finalized at location A. Impression: No acute intracranial hemorrhage or suspicious mass effect.
--- OUTSIDE RECORDS SUMMARY | 2025-04-22 01:13 | XMS_ITS | Referral Summary ---
Author Organization [facility] [place] [address] Address [address] [place] [address] Care Team Providers Care Piece Dyeing Machine Tender Name Role Phone Aria Simmons MD Primary [...] Comments Blood Pressure 136/68 11/30/2024 9:51 AM PUBLIC SAFETY OFFICER Pulse 66 11/30/2024 9:51 AM PUBLIC SAFETY OFFICER Temperature 37.9 C (100.2 F) 06/10/2023 10:01 AM CDT Respiratory Rate 18 11/30/2024 9:51 AM PUBLIC SAFETY OFFICER Oxygen Saturation 99% 11/30/2024 9:51 AM PUBLIC SAFETY OFFICER Inhaled Oxygen Concentration - - Weight 63.1 kg (139 lb 3.2 oz) 11/30/2024 9:51 A M PUBLIC SAFETY OFFICER Height 162.6 cm (5' 4) 11/30/2024 9:51 AM PUBLIC SAFETY OFFICER Body Mass Index 23.89 11/30/2024 9:51 AM PUBLIC SAFETY OFFICER Plan of Treatment Not on file Insurance MEDICARE AETNA AET SENIOR SUPPLEMENT MEDICARE AETNA SENIOR SUPPLEMENT Care Teams Piece Dyeing Machine Tender Relationship Specialty Start Date End Date Aria Simmons MD PCP - General Family Practice 08/06/21
--- OUTSIDE RECORDS SUMMARY | 2025-04-22 01:13 | XMS_ITS | Clinical Summary ---
Author Organization [facility] [place] [address] Address [address] [place] [address] Care Team Providers Care Professor Computer Science Name Role Phone Aria Simmons MD Primary [...] Comments Blood Pressure 136/68 11/30/2024 9:51 AM DIRECTOR OF PUBLIC RELATIONS Pulse 66 11/30/2024 9:51 AM DIRECTOR OF PUBLIC RELATIONS Temperature 37.9 C (100.2 F) 06/10/2023 10:01 AM CDT Respiratory Rate 18 11/30/2024 9:51 AM DIRECTOR OF PUBLIC RELATIONS Oxygen Saturation 99% 11/30/2024 9:51 AM DIRECTOR OF PUBLIC RELATIONS Inhaled Oxygen Concentration - - Weight 63.1 kg (139 lb 3.2 oz) 11/30/2024 9:51 A M DIRECTOR OF PUBLIC RELATIONS Height 162.6 cm (5' 4) 11/30/2024 9:51 AM DIRECTOR OF PUBLIC RELATIONS Body Mass Index 23.89 11/30/2024 9:51 AM DIRECTOR OF PUBLIC RELATIONS Plan of Treatment Health Maintenance Due Date [...] season) 2024 07/19/2021, 12/11/2020, 11/20/2020 Influenza Vaccine (#1) 2025 , 06/14/2020, 06/22/2019, Additional history exists Fall Risk Assessment 11/30/2025 11/30/2024, 06/02/2024, 12/16/2023, Additional history exists Insurance MEDICARE AETNA AETNA SENIOR SUPPLEMENT MEDICARE AETNA SENIOR SUPPLEMENT Care Teams Professor Computer Science Relationship Specialty Start Date End Date Aria Simmons MD PCP - General Family Practice 08/06/21
--- OUTSIDE RECORDS SUMMARY | 2025-04-22 01:13 | XMS_ITS | Continuity of Care Document ---
Author Organization [facility] Address [id number] [place] [address] [address] [place] [address] Phone Care Team Providers Care Assistant To The President Name Role Phone Elise OD, Vinh Unavailable Unavailable Advance Directives Directive Yes / No Effective Date File Name No Information Encounters Encounter Description Practice Location Reason(s) For Visit Diagnoses Date Provider Providers Copied on Encounter Formerly [facility], [address], [place], [place], [id number], [place] tel:[phone] [facility] No Information 4-200 5 Elise OD Vinh. [address] , [address], [place], [address], [place]. tel:[phone] Family History Family Member Type Diagnosis Age At Onset No Information Payers Payer name Insurance type Covered constitution party ID Authoriza tion(s) No Information Social History [...]
[2025-04-22 01:14] VITALS: BP 152/61; PULSE 55; RESP 18; TEMP 36.8; O2SAT 100
--- OUTSIDE RECORDS SUMMARY | 2025-04-22 03:27 | XMS_ITS | Continuity of Care Document ---
Author Organization [facility] Address [id number] [place] [address] [address] [place] [address] Phone Care Team Providers Care Blood Donor Unit Assistant Name Role Phone Elise OD, Vinh Unavailable Unavailable Advance Directives Directive Yes / No Effective Date File Name No Information Encounters Encounter Description Practice Location Reason(s) For Visit Diagnoses Date Provider Providers Copied on Encounter [facility], [address], [place], [place], [id number], [place] tel:[phone] [facility] No Information 4-200 5 Elise OD Vinh. [address] , [address], [place], [address], [place]. tel:[phone] Family History Family Member Type Diagnosis Age [...]
--- OUTSIDE RECORDS SUMMARY | 2025-04-22 03:27 | XMS_ITS | Clinical Summary ---
Author Organization [facility] [place] [address] Address [address] [place] [address] Care Team Providers Care Inspector Wire Products Name Role Phone Aria Simmons MD Primary [...] Comments Blood Pressure 136/68 11/30/2024 9:51 AM ANVILSMITH Pulse 66 11/30/2024 9:51 AM ANVILSMITH Temperature 37.9 C (100.2 F) 06/10/2023 10:01 AM CDT Respiratory Rate 18 11/30/2024 9:51 AM ANVILSMITH Oxygen Saturation 99% 11/30/2024 9:51 AM ANVILSMITH Inhaled Oxygen Concentration - - Weight 63.1 kg (139 lb 3.2 oz) 11/30/2024 9:51 A M ANVILSMITH Height 162.6 cm (5' 4) 11/30/2024 9:51 AM ANVILSMITH Body Mass Index 23.89 11/30/2024 9:51 AM ANVILSMITH Plan of Treatment Health Maintenance Due Date [...] SUPPLEMENT MEDICARE AETNA SENIOR SUPPLEMENT Care Teams Inspector Wire Products Relationship Specialty Start Date End Date Aria Simmons MD PCP - General Family Practice 08/06/21
--- OUTSIDE RECORDS SUMMARY | 2025-04-22 03:27 | XMS_ITS | Referral Summary ---
Author Organization [facility] [place] [address] Address [address] [place] [address] Care Team Providers Care Firer Watertender Name Role Phone Aria Simmons MD Primary [...] Comments Blood Pressure 136/68 11/30/2024 9:51 AM SECOND BALLER Pulse 66 11/30/2024 9:51 AM SECOND BALLER Temperature 37.9 C (100.2 F) 06/10/2023 10:01 AM CDT Respiratory Rate 18 11/30/2024 9:51 AM SECOND BALLER Oxygen Saturation 99% 11/30/2024 9:51 AM SECOND BALLER Inhaled Oxygen Concentration - - Weight 63.1 kg (139 lb 3.2 oz) 11/30/2024 9:51 A M SECOND BALLER Height 162.6 cm (5' 4) 11/30/2024 9:51 AM SECOND BALLER Body Mass Index 23.89 11/30/2024 9:51 AM SECOND BALLER Plan of Treatment Not on file Insurance MEDICARE AETNA AET SENIOR SUPPLEMENT MEDICARE AETNA SENIOR SUPPLEMENT Care Teams Firer Watertender Relationship Specialty Start Date End Date Aria Simmons MD PCP - General Family Practice 08/06/21
--- NOTE | 2025-04-22 04:00 | ED.HEATRA ---
HPI - Head Injury General Chief complaint: Head Injury Stated complaint: head injury Time Seen by Provider: 04/22/25 03:21 Source: patient and family () History of Present Illness HPI Narrative: Patient presents after she fell on externally at the back of her head. There was a spider noted and in the process of moving backwards she accidentally stumbled. Struck her head against the wall. Denies loss of consciousness. Initially had reported a headache but not now. She is on 12/15 5 mg daily aspirin and patient's and family member were concerned and wanted her evaluated. Patient and her were otherwise babysitting their 7-year-old grandson at the time. Not on clopidogrel. Had briefly been on Eliquis for atrial fibrillation but the atrial fibrillation had been erroneously diagnosed and patient has not been on Eliquis since. Related Data Home Medications ?Medication ?Instructions ?Recorded ?Confirmed ?Last Taken ?Type ferrous sulfate 325 mg (65 mg 325 mg PO DAILY 05/01/22 02/16/25 08/14/22 History iron) tablet (FeroSul) multivitamin 1 tablet PO DAILY 05/01/22 02/16/25 08/14/22 History rivastigmine tartrate 6 mg capsule 6 mg PO BID 08/07/22 02/16/25 08/14/22 History cholecalciferol (vitamin D3) 25 25 mcg PO DAILY 08/15/22 02/16/25 08/14/22 History mcg (1,000 unit) chewable tablet aspirin 325 mg tablet 325 mg PO QHS 12/06/22 02/16/25 Unknown History loratadine 10 mg tablet (Claritin) 10 mg PO DAILY 02/16/25 02/16/25 Unknown History pravastatin 20 mg tablet 20 mg PO QHS 02/16/25 02/16/25 Unknown History Allergies Allergy/AdvReac Type Severity Reaction Status Date / Time No Known Allergies Allergy Unknown Verified 04/22/25 01:18 [facility] Past Medical History Medical History On aspirin at home Environmental allergies Wenckebach pause (~07/2022) Paroxysmal atrial flutter (~07/2022) Heart murmur Type 2 diabetes mellitus without complications Premature atrial contractions Vitamin D deficiency Recurrent intestinal obstruction Dementia in Alzheimer's disease Osteopenia Postmenopausal Hyperlipidemia Surgical History Surgical History History of appendectomy History of 2 sections 1983 and 1988. History of ovarian cystectomy 1980s Family History Family History Mother Family history of malignant neoplasm of breast in first degree relative Social History Social History Social History: The patient lives in [place] with her . 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 She has 2 children and a 7yo grandchild Lifelong nonsmoker. No alcohol or illicit substance abuse. Surrogate medical decision maker: Rodolfo Gomez, spouse. Code status: Full code. Smoking status: Former smoker (quit in high school) Alcohol intake: never Substance use: never Do You Feel Safe in your Home?: Yes Lack of Transportation: No Lack of Food: Never True Current Housing: I Have Housing Concerned About Future Housing: No Difficulty Paying Gas/Electric Bills: No Difficulty Paying for Meds: No Currently Unemployed: No Education: High School Diploma/GED Difficulty w/ Childcare or Family Care: No Living arrangements: with family Occupation/Education: retired Gender identity (if verbalized by the patient): Female Sexual Orientation (if Verbalized by the Patient): Straight or Heterosexual Spiritual care concerns: No Agree to blood products: Yes Exam Narrative: GENERAL: Well-appearing, well-nourished, and in no acute distress. HEAD: Small hematoma. EYES: Non injected, non icteric ENT: Nares clear, no rhinorrhea or epistaxis. Gross auditory acuity intact. NECK: Supple. No meningismus. CHEST: Speaking in full sentences. No respiratory distress. HEART: Bradycardic rate and rhythm. . ABDOMEN: Soft, nondistended. EXTREMITIES: Normal range of motion. No lower extremity edema. SKIN: Warm, dry, no rash. NEURO: No focal deficits. Alert . Following commands. PSYCH: Congruent mood and affect. Course Vital Signs Vital signs: Vital Signs Temperature 98.2 F 04/22/25 01:14 Pulse Rate 55 L 04/22/25 01:14 Respiratory Rate 18 04/22/25 01:14 Blood Pressure 152/61 H 04/22/25 01:14 Pulse Oximetry 100 04/22/25 01:14 Oxygen Delivery Room Air 04/22/25 01:14 Temperature 98.2 F 04/22/25 01:14 Pulse Rate 55 L 04/22/25 01:14 Respiratory Rate 18 04/22/25 01:14 Blood Pressure 152/61 H 04/22/25 01:14 Pulse Oximetry 100 04/22/25 01:14 Oxygen Delivery Room Air 04/22/25 01:14 MDM - Head Injury MDM Narrative Medical decision making narrative: Patient presents after she moved backwards after seeing a spider and in the process stumbled and fell striking the back of her head against the wall. No loss of consciousness. She is on daily 325 mg aspirin therapy. In the emergency department she is afebrile with vital signs notable for mild bradycardia as well as hypertension. CT neg for acute process. Discharged with Rx for OTC analgesic meds. Otherwise stable. Differential Diagnosis Differential diagnosis: Likely other (Cervical spine fracture/subluxation; skull fracture; intracranial hemorrhage) Imaging Data Radiologist's impression: CT Head Stat Rad: Age-appropriate cerebral volume loss. Mild ischemic microangiopathy. Bone windows are unremarkable. No acute intracranial hemorrhage or acute transcortical infarct. CT C Spine: Bilateral apical pleural scarring no acute osseous pathology. Multilevel cervical spondylopathy Discharge Plan Discharge Clinical Impression: Fall, Blunt head trauma Patient Disposition: Home Condition: Stable Instructions: Antibiotic Form, Fall Prevention for Older Adults (ED), Head Injury (ED) Additional Instructions: Acetaminophen/Tylenol (maximum 4000 mg per day) is safe to take with NSAIDs (ibuprofen/Motrin) for pain relief. Follow-up with primary care physician. Return to the emergency department any new or worsening symptoms Patient Language: Pashto Prescriptions: New ibuprofen 600 mg tablet 600 mg PO TID PRN (Reason: pain) Qty: 20 0RF acetaminophen 500 mg capsule 1,000 mg PO Q6H PRN (Reason: pain) Qty: 20 0RF No Action cholecalciferol (vitamin D3) 25 mcg (1,000 unit) tablet,chewable 25 mcg PO DAILY loratadine [Claritin] 10 mg tablet 10 mg PO DAILY pravastatin 20 mg tablet 20 mg PO QHS multivitamin Tablet 1 tablet PO DAILY ferrous sulfate [FeroSul] 325 mg (65 mg iron) tablet 325 mg PO DAILY rivastigmine tartrate 6 mg capsule 6 mg PO BID aspirin 325 mg tablet 325 mg PO QHS levothyroxine 75 mcg tablet 75 mcg PO DAILY Qty: 90 1RF metformin 500 mg tablet extended release 24 hr 500 mg PO QPM Qty: 100 1RF sotalol 80 mg tablet See Rx Instructions .ROUTE .COMPLEX Qty: 90 2RF Dose Instruction: TAKE 1/2 (ONE-HALF) TABLET BY MOUTH EVERY 12 HOURS Rx Instructions: TAKE 1/2 (ONE-HALF) TABLET BY MOUTH EVERY 12 HOURS Follow-up/Referrals: German Simmons MD [Primary Care Provider] - Time of Disposition: 04:07
[2025-04-22] MEDS: ACETAMINOPHEN 500 MG TABLET 1000 MG PO (04:28)
== END 2025-04-22 04:38 | disposition home or self-care (01) ==
PROVIDERS: Emergency Provider Student in an Organized Health Care Education/Training Program; PCP Family Medicine
DX: S09.90XA Unspecified injury of head, initial encounter (principal); W01.0XXA Fall on same level from slipping, tripping and stumbling without subsequent striking against object, initial encounter
CPT/HCPCS: 70450; 72125; 99284; A9270

== ENCOUNTER 2025-09-22 08:05 | Outpatient (CLI) | payer MEDICARE, SELFPAY ==
--- OUTSIDE RECORDS SUMMARY | 2025-09-22 08:07 | XMS_ITS | Clinical Summary ---
Author Organization [facility] [place] [address] Address [address] [place] [address] Care Team Providers Care Lamination Operator Name Role Phone Aria Simmons MD Primary [...] rivastigmine (EXELON) 6 mg capsuleIndicati ons:Alzheimer's disease Take 1 capsule (6 mg total) by mouth 2 (two) times a day 180 capsule 1 06/22/2025 Active memantine (NAMENDA) 5 mg tabletIndicatio ns:Moderate to Severe Alzheimer's Type Dementia Take 1 tablet (5 mg total) by mouth 2 (two) times a day 60 tablet 5 06/28/2025 6 Active Active Problems No known active problems Encounters Date Type Department Care Team Description 06/28/2025 Orders Only [facility] [address] [address] Darwin Blunt II, MD from Last 3 Months Social History Tobacco Use Types Packs/Day Years Used Date Smoking Tobacco: Never Smokeless Tobacco: Never Tobacco Cessation:Counseling Given: Not Answered AUDIT-C Answer Date Recorded Q1: How often do you have a drink containing alc ohol? Never 06/22/2025 Average Number of Drinks Not on file 025 Frequency of Binge Drinking Not on file 05/30 Comments Unknown Sex and Gender Information Value Date Recorded Sex Assigned at Not on file Legal Sex Female 12:36 PM CDT Gender Identity Not on file Sexual Orientation Not on file Last Filed Vital Signs Vital Sign Reading Time Taken Comments Blood Pressure 146/72 06/22/2025 10:22 AM CDT Pulse 52 06/22/2025 10:22 AM CDT Temperature 37.9 C (100.2 F) 06/10/2023 10:01 AM CDT Respiratory Rate 18 11/30/2024 9:51 AM WATCH DIAL STONER Oxygen Saturation 99% 06/22/2025 10:22 AM CDT Inhaled Oxygen Concentration - - Weight 66.2 kg (146 lb) 06/22/2025 10:22 AM CDT Height 162.6 cm (5' 4) 11/30/2024 9:51 AM WATCH DIAL STONER Body Mass Index 25.06 11/30/2024 9:51 AM WATCH DIAL STONER Plan of Treatment Health Maintenance Due Date Last Done Comments Breast Cancer Screening-Mammogram 1950 Colon Cancer Screening-Colonoscopy 1950 Depression Screening 1950 Hepatitis C Screening 1950 Osteoporosis Screening-Bone Density Scan 1950 Hepatitis B Screening 01/20/1970 Well Visit 65+ 01/20/2017 Pneumococcal vaccine 65+ (3 of 3 - PCV20 or PCV21) 07/19/2020 07/19/2015, 07/31/2013 Covid-19 Vaccine (4 - 2024-2 6 season) 2025 07/19/2021, 12/11/2020, 11/20/2020 Influenza Vaccine (#1) 2025 4, 06/18/2021, 06/14/2020, Additional history exists Fall Risk Assessment 11/30/2025 11/30/2024, 06/02/2024, 12/16/2023, Additional history exists DTaP/Tdap/Td Vaccine (2 - Td or Tdap) 02/06/2033 02/06/2023 Zoster Vaccine Completed 12/04/2022, 08/01/2022 Insurance MEDICARE AETNA AETNA SENIOR SUPPLEMENT MEDICARE AETNA SENIOR SUPPLEMENT Care Teams Lamination Operator Relationship Specialty Start Date End Date Aria Simmons MD PCP - General Family Practice 08/06/21
[2025-09-22 18:47] LABS: Hematocrit 29.7 % (37.0-47.0); Hemoglobin 8.4 g/dL (12.0-15.0); Immature Granulocyte Percent A 0.2 % (0-0.5); Lymphocytes Absolute Auto 0.93 K/mm3 (0.9-3.2); Mean Corpuscular HGB Conc 28.3 g/dl (32-36); Mean Corpuscular Hemoglobin 23.5 pg (26-34); Mean Corpuscular Volume 83.0 fl (80-100); Nucleated Red Blood Cells Absolute Auto 0.020 K/mm3 (0.0-0.012); Nucleated Red Blood Cells Perc 0.4 % (0.0-0.2); Platelet Count Result 404 k/mm3 (150-375); Red Blood Count 3.58 M/mm3 (4.2-5.4); White Blood Count 5.6 K/mm3 (4.5-10.0)
[2025-09-22 19:23] LABS: Iron 39 ug/dL (37-170)
[2025-09-22 19:33] LABS: Percent Iron Saturation 7 % (20-50)
[2025-09-22 19:42] LABS: Alanine Aminotransferase 20 U/L (6-35); Albumin Level 3.6 g/dL (3.5-5.1); Alkaline Phosphatase 101 U/L (38-126); Anion Gap 4 mmol/L (4-12); Aspartate Amino Transferase 25 U/L (14-36); Bilirubin,Total 0.4 mg/dL (0.2-1.3); Blood Urea Nitrogen 22 mg/dL (7-17); Calcium 9.1 mg/dL (8.4-10.2); Carbon Dioxide 25 mmol/L (22-30); Chloride 106 mmol/L (98-107); Cholesterol 121 mg/dL (0-200); Estimated Glomerular Filt Rate > 60; Glucose 155 mg/dL (65-110); HDL Direct 54 mg/dL; Magnesium 2.3 mg/dL (1.6-2.3); Potassium 4.3 mmol/L (3.4-5.0); Sodium 135 mmol/L (137-145); Total Protein 6.5 g/dL (6.3-8.2); Triglycerides 75 mg/dL (<150)
[2025-09-22 19:47] LABS: Anisocytosis 1+; NT Pro B Type Natriuretic Pept 2070 pg/mL (19.9-100)
[2025-09-22 19:48] LABS: Schistocytes None Seen
[2025-09-22 19:49] LABS: Hypochromasia 1+
[2025-09-22 19:55] LABS: Thyroid Stimulating Hormone Reflex 4.300 uIU/mL (0.465-4.68)
[2025-09-22 19:59] LABS: Ferritin 10.50 ng/mL (11.1-264)
[2025-09-22 20:24] LABS: Hemoglobin A1C 7.2 % (<5.7)
[2025-09-22 20:27] LABS: Vitamin B12 332.0 pg/mL (239-931)
[2025-09-22 21:36] LABS: Free T4 Free Thyroxine Reflex 1.21 ng/dL (0.78-2.19)
[2025-09-22 22:30] LABS: Total Triiodothyronine (T3) 0.81 NG/ML (0.82-1.58)
== END 2025-09-22 08:06 | disposition home or self-care (01) ==
PROVIDERS: PCP Family Medicine; Visit Provider Family Medicine
DX: E11.9 Type 2 diabetes mellitus without complications (principal); D64.9 Anemia, unspecified; E53.8 Deficiency of other specified B group vitamins; E55.9 Vitamin D deficiency, unspecified; I48.0 Paroxysmal atrial fibrillation; I44.1 Atrioventricular block, second degree; I48.92 Unspecified atrial flutter; E78.5 Hyperlipidemia, unspecified; Z00.00 Encounter for general adult medical examination without abnormal findings; I10 Essential (primary) hypertension; I87.2 Venous insufficiency (chronic) (peripheral); R06.00 Dyspnea, unspecified
CPT/HCPCS: 36415; 80053; 80061; 82306; 82607; 82728; 83036; 83540; 83550; 83735; 83880; 84439; 84443; 84480; 85025

== ENCOUNTER 2025-09-25 08:04 | Outpatient (NON) | payer MEDICARE, SELFPAY ==
--- OUTSIDE RECORDS SUMMARY | 2025-09-25 08:10 | XMS_ITS | Clinical Summary ---
Author Organization [facility] [place] [address] Address [address] [place] [address] Care Team Providers Care Recruitment Officer Name Role Phone Aria Simmons MD Primary [...] Description 06/28/2025 Orders Only [facility] [address] [id number] Darwin Blunt II, MD from [...] CDT Respiratory Rate 18 11/30/2024 9:51 AM PLANNING RN Oxygen Saturation 99% 06/22/2025 10:22 AM CDT Inhaled Oxygen Concentration - - Weight 66.2 kg (146 lb) 06/22/2025 10:22 AM CDT Height 162.6 cm (5' 4) 11/30/2024 9:51 AM PLANNING RN Body Mass Index 25.06 11/30/2024 9:51 AM PLANNING RN Plan of Treatment Health Maintenance Due Date [...] SUPPLEMENT MEDICARE [employer] SENIOR SUPPLEMENT Care Teams Recruitment Officer Relationship Specialty Start Date End Date Aria Simmons MD PCP - General Family Practice 08/06/21
== END 2025-09-25 08:05 | disposition home or self-care (01) ==
LOC: ANHGOSHLAB 08:05
PROVIDERS: PCP Family Medicine; Visit Provider Family Medicine
DX: E11.9 Type 2 diabetes mellitus without complications (principal); D64.9 Anemia, unspecified
CPT/HCPCS: 82043